=== PATIENT | male | born 1930 | race Caucasian/White ===

== ENCOUNTER 2018-08-18 21:34 | Inpatient (IN) ==
[2018-08-18 21:53] LABS: Basophils % 0.3 % (0.1-2.0); Eosinophils % 0.2 % (0.1-12.0); Hematocrit 29.8 % (42.0-52.0); Hemoglobin 9.6 g/dL (14.1-18.0); Lymphocytes # 0.5 K/mm3 (0.7-4.5); Lymphocytes % 4.8 % (10-50); Mean Corpuscular HGB Conc 32.2 g/dL (31.8-35.4); Mean Corpuscular Volume 99.5 fl (80-94); Monocytes # 0.3 K/mm3 (0.1-1.0); Monocytes % 3.2 % (1.7-9.3); Neutrophils # 8.8 K/mm3 (1.8-7.8); Neutrophils % 91.5 % (37.0-80.0); Platelet Count 125 K/mm3 (142-424); Red Blood Count 2.99 M/mm3 (4.60-6.20); White Blood Count 9.6 K/mm3 (4.8-10.8)
[2018-08-18 22:04] LABS: Albumin Level 2.3 gm/dL (3.4-5.0); Albumin/Globulin Ratio 0.6 (1.1-1.8); Anion Gap 13.3 mEq/L (5-15); Bilirubin,Total 0.6 mg/dL (0.2-1.0); Calcium 8.5 mg/dL (8.5-10.1); Globulin 3.8 gm/dl (1.3-3.2); Potassium 4.3 mmoL/L (3.5-5.1); Total Protein,Serum 6.1 gm/dL (6.4-8.2)
--- NOTE | 2018-08-18 22:30 | Emergency Department Note ---
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 The time I documented below is in addition to time spent performing reported procedures but includes the following listed in this critical care notation. Medical Decision Making - Medical Records Medical records reviewed: Yes: I reviewed the patient's medical records. - [place] Inquiry Pt receiving controlled substance: No Vital Signs: 08/18/18 21:35 08/18/18 22:52 Temperature 101.2 F H Temperature Source Oral Pulse Rate [Right Brachial] 122 H 107 H Respiratory Rate 18 20 Blood Pressure [Right Arm] 93/48 L 97/57 L Blood Pressure Mean [Right Arm] 63 70 02 Sat by Pulse Oximetry 94 L 92 L Oxygen Delivery Method Room Air - Lab Data Lab results reviewed: Yes: I reviewed the patient's lab results. Lab Results 08/18/18 21:30: WBC 9.6, RBC 2.99 L, Hgb 9.6 L, Hct 29.8 L, MCV 99.5 H, MCH 32.0 H, MCHC 32.2, RDW 15.0, Plt Count 125 L, MPV 7.0 L, Neut % (Auto) 91.5 H, Lymph % (Auto) 4.8 L, [place] % (Auto) 3.2, Eos % (Auto) 0.2, Baso % (Auto) 0.3, Neut # (Auto) 8.8 H, Lymph # (Auto) 0.5 L, [place] # (Auto) 0.3, Eos # (Auto) 0.0, Baso # (Auto) 0.0, Total Counted 100, Neutrophils % (Manual) 97 H, Lymphocytes % (Manual) 2 L, Eosinophils % (Manual) 1, Platelet Estimate Normal, RBC Morphology Not Reportable, Anisocytosis 1+, Ovalocytes 1+ 08/18/18 21:30: Sodium 135 L, Potassium 4.3, Chloride 99, Carbon Dioxide 27, Anion Gap 13.3, BUN 36 H, Creatinine 1.65 H, Estimated Creat Clear 50, Estimated GFR 40 L, Est GFR ( Amer) 48 L, Glucose 167 H, Calcium 8.5, Total Bilirubin 0.6, AST 12 L, ALT 12, Alkaline Phosphatase 93, Troponin I 0.28 H, Total Protein 6.1 L, Albumin 2.3 L, Globulin 3.8 H, Albumin/Globulin Ratio 0.6 L 08/18/18 21:50: Lactate 2.7 H 08/18/18 22:20: Influenza Type A Ag Negative, Influenza Type B Ag Negative 08/18/18 22:40: Urine Color Yellow, Urine Appearance Clear, Urine pH 6.0, Ur Specific [place] >= 1.030, Urine Protein Trace, Urine Glucose (UA) Negative, Urine Ketones Negative, Urine Blood 2+, Urine Nitrate Negative, Urine Bilirubin Negative, Urine Urobilinogen 0.2, Ur Leukocyte Esterase 1+ A, Urine RBC 10-20, U rine WBC 50-100, Urine Bacteria 1+ Result diagrams: 08/18/18 21:30 08/18/18 21:30 Orders (Tests/Meds): ED MEDICATIONS Discontinued Medications Generic Name Dose Route Start Last Admin Trade Name Freq PRN Reason Stop Dose Admin Acetaminophen 1,000 mg 08/18/18 21:45 08/18/18 21:56 Tylenol 500mg Tablet PO 08/18/18 21:46 1,000 mg ONCE ONE Administration ORDERS Category Date Time Status CT head/brain wo con Stat Cat Scan 08/18/18 21:45 Taken XR chest AP Stat Exams 08/18/18 21:42 Taken Urinalysis and Microscopic Stat Lab 08/18/18 22:40 Ordered Blood Culture Stat Micro 08/18/18 21:50 Received Urine Culture Stat Micro 08/18/18 22:40 Received - Radiology Data #1 Image(s): Chest Image Reviewed: Yes I reviewed the patient's radiology image Preliminary Findings: Abnormal (chronic changes ) - CT Data CT Scan: Head Time Received: 23:[address] Reviewed: Yes: I have viewed the radiologist's interpretation - ECG Data Tracing #1 Arrhythmias present: afib Ischemic changes: non-specific ST-T wave changes ECG compared to prior tracings: there are no significant changes - Physician Consults Physician Consulted: eric Reason -: Admission Fever HPI - General Chief Complaint: Fever Stated Complaint: fever Time Seen by Provider: 08/18/18 21:50 Mode of Arrival: EMS Source of Information: Patient, EMS, Medical Record Limitations: Physical Limitations Description of Symptoms (Recalled from ER Triage Doc. by RN): pt states he just "doesnt feel good." ems reports that [facility] states that patient hasnt been "acting like himself today." pt temp on arrival 101.2 oral. 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 - no vomiting or diarrhea - MD complaint: fever, weakness Onset (ago): hour(s) Associated symptoms: cough Treatments prior to arrival fever: none - Related Data Home Medications Medication Instructions Recorded Confirmed Allopurinol [Allopurinol 100mg 100 mg PO TID 10/11/17 08/18/18 tablet] Aspirin [Aspirin 325mg Tab] 325 mg PO DAILY 10/11/17 08/18/18 Doxepin HCl [Sinequan 25mg capsule] 25 mg PO HS 10/11/17 08/18/18 Metformin HCl 1,000 mg PO BID 10/11/17 08/18/18 Omeprazole [Omeprazole 20mg 20 mg PO BID 10/11/17 08/18/18 Capsule] Ramipril 10 mg PO BID 10/11/17 08/18/18 Budesonide [Budesonide EC] 9 mg PO DAILYP PRN 10/26/17 08/18/18 Cholecalciferol (Vitamin D3) 2,000 unit PO DAILY 10/26/17 08/18/18 [Vitamin D3] Loperamide HCl [Imodium 2 mg 2 mg PO DAILYP PRN 10/26/17 08/18/18 capsule] Vitamin B Complex [B Complex] 1 each PO DAILY 10/26/17 08/18/18 Acetaminophen/Diphenhydramine 2 tab PO HS PRN 10/27/17 08/18/18 [Tylenol Pm Ex-Strength Caplet] Apixaban [Eliquis] 2.5 mg PO BID 11/12/17 08/18/18 Sertraline HCl [Zoloft 50mg tablet] 50 mg PO DAILY 11/12/17 08/18/18 Acetaminophen 500 mg PO Q6HP PRN 11/13/17 08/18/18 Carvedilol [Carvedilol 6.25mg Tab] 12.5 mg PO BID 11/13/17 08/18/18 Furosemide [Furosemide 20mg Tab] 40 mg PO DAILY 11/13/17 08/18/18 Ibuprofen [Ibuprofen Ib] 400 mg PO Q8HP PRN 11/13/17 08/18/18 Multivitamin [One Daily] 1 tab PO DAILY 11/13/17 08/18/18 dilTIAZem HCl [Diltiazem 240mg 240 mg PO DAILY 11/13/17 08/18/18 24Hr ER Cap] levothyroxine 112 mcg tablet 150 mcg PO DAILYDM tab 06/17/18 08/18/18 Ferrous Sulfate [Ferrous Sulfate 325 mg PO BID 08/18/18 08/18/18 325mg Tablet] Magnesium Oxide [Mag-Ox 400mg Tab] 400 mg PO DAILY 08/18/18 08/18/18 Mirabegron [Myrbetriq] 50 mg PO DAILY 08/18/18 08/18/18 Tramadol HCl [Ultram 50mg 50 mg PO Q6HP PRN 08/18/18 08/18/18 tablet] Previous Rx's Medication Instructions Recorded Morphine Sulfate [MS Contin 15mg 15 mg PO HS #30 tablet.er 11/14/17 EXTENDED RELEASE tablet] Allergies Allergy/AdvReac Type Severity Reaction Status Date / Time atorvastatin [From Lipitor] Allergy Verified 08/18/18 21:42 [facility] History I have reviewed the patient's past medical history: Yes Medical History: Reports:: Cerebrovascular Accident, Diabetes Mellitus Type 2, Gastroesophageal Reflux Disease(GERD), Hyperlipidemia, Hypertension, Peripheral Vascular Disease Denies:: Atherosclerotic Heart Disease, Cancer, Diabetes Mellitus Type 1, MRSA Other Medical History: Reports: Arthritis, Cataracts, Sinus Problems, Thyroid Disease Comment: Gout. Colitis Other Surgeries: Yes: Other Amputation: No Comment: left femoral bypass 1991 - Social History Smoking Status: Former smoker Tobacco Type: cigarettes Alcohol Intake: never Occupational Status: retired Housing: [facility] Household Members: friend(s) - Psychiatric History Expresses thoughts of harming self/others: None Suicide Plan Description: No Plan Family Hx:: Asthma, Coronary Artery Disease, Hypertension ROS Obtained: Yes All systems reviewed & no additional complaints - Constitutional Constitutional: Reports fever(s), Reports weakness - Eyes Eyes: Denies change in vision - ENT Ears, Nose, Mouth, and Throat: Denies sore throat - Cardiovascular Cardiovascular: Denies chest pain - Respiratory Respiratory: Yes cough, No non-productive cough, No coughing up blood - Gastrointestinal Gastrointestingal: Denies: abdominal pain, diarrhea, vomiting - Genitourinary Male Genitourinary: Denies hematuria - Musculoskeletal Musculoskeletal: Denies joint pain, Denies joint swelling - Integumentary/Breasts Skin/Breast: Denies rash - Neurologic Neurologic: Reports as per HPI, Reports confusion, Denies headache(s), Denies seizure-like activity Physical Exam - General General appearance: alert, obese - Head Head exam: normocephalic - Eye Eye exam: Present: PERRL, EOMI. Absent: scleral icterus - ENT ENT exam: Present: mucous membranes dry - Neck Neck exam: Present: trachea midline - Respiratory Respiratory exam: Present: other (dec bs bilat ) - Cardiovascular Cardiovascular exam: Present: irregular rhythm, systolic murmur, +S4 - Abdominal Exam Abdominal exam: Present: soft - Extremities Exam Extremities exam: Absent: calf tenderness - Neurological Exam Neurological exam: Present: alert, CN II-XII intact - Psychiatric Psychiatric exam: Present: normal affect - Skin Skin exam: Absent: rash
[2018-08-18 22:38] LABS: Anisocytosis 1+; Eosinophils % 1 % (0-3); Lymphocytes % 2 % (10-50); Neutrophils % 97 % (42-76); Ovalocytes 1+; Total Cells Counted 100
[2018-08-18 22:46] LABS: Microscopic, Urine URINE MICROSCOPIC (MICROSCOPIC)
[2018-08-18 22:47] LABS: Appearance,Urine CLEAR (Clear); Bilirubin,Urine Negative (Negative); Blood, Urine 2+ (Negative); Color,Urine YELLOW (Yellow); Glucose,Urine (UA) Negative (Negative); Ketones,Urine Negative (Negative); Leukocyte Esterase,Urine 1+ (Negative); Protein,Urine TRACE (Negative); Specific Gravity, Urine >= 1.030 (1.005-1.030); Urobilinogen,Urine 0.2 EU/dl (0.2)
[2018-08-18 22:48] LABS: Bacteria,Urine 1+ /lpf; WBC,Urine 50-100 #/hpf (0-3)
[2018-08-19 06:13] LABS: Basophils % 0.2 % (0.1-2.0); Eosinophils # 0.1 K/mm3 (0.0-0.4); Eosinophils % 0.7 % (0.1-12.0); Hemoglobin 9.8 g/dL (14.1-18.0); Lymphocytes # 0.5 K/mm3 (0.7-4.5); Lymphocytes % 4.7 % (10-50); Mean Corpuscular HGB Conc 31.7 g/dL (31.8-35.4); Mean Corpuscular Hemoglobin 32.3 pg (27.0-31.2); Mean Corpuscular Volume 102.1 fl (80-94); Mean Platelet Volume 7.4 fl (7.4-10.4); Monocytes # 0.3 K/mm3 (0.1-1.0); Monocytes % 2.7 % (1.7-9.3); Neutrophils # 8.8 K/mm3 (1.8-7.8); Neutrophils % 91.6 % (37.0-80.0); Platelet Count 120 K/mm3 (142-424); Red Blood Count 3.04 M/mm3 (4.60-6.20); Red Cell Distribution Width 14.8 % (11.5-17.5); White Blood Count 9.6 K/mm3 (4.8-10.8)
[2018-08-19 06:23] LABS: Anion Gap 12.4 mEq/L (5-15); Calcium 8.4 mg/dL (8.5-10.1); Potassium 4.4 mmoL/L (3.5-5.1)
--- NOTE | 2018-08-19 07:29 | Pharmacy Consult Notes ---
[facility] Pharmacy VTE Monitoring - Patient Demographics Admission date: 08/18/18 Report Date: 08/19/18 Time: 07:29 Allergies/Adverse Reactions: Patient Allergies atorvastatin [From Lipitor] Allergy (Verified 08/18/18 21:42) Height: 1.83 m Weight: 85.332 kg Patient Problems: Current Active Problems Elevated troponin I level (Acute) Type 2 diabetes mellitus (Acute) Renal insufficiency (Acute) Chronic atrial fibrillation (Chronic) UTI (urinary tract infection) (Acute) - VTE Risk Labs: VTE Related Lab Results Hgb 9.8 g/dL (14.1-18.0) L 08/19/18 05:50 Hct 31.0 % (42.0-52.0) L 08/19/18 05:50 Plt Count 120 K/mm3 (142-424) L 08/19/18 05:50 BUN 37 mg/dL (7-18) H 08/19/18 05:50 Creatinine 1.77 mg/dL (0.70-1.30) H 08/19/18 05:50 Estimated Creat Clear 35 mL/min (50-200) 08/19/18 05:50 VTE Score: 8 VTE Risk Level: Moderate Risk - Prophylaxis VTE Prophylaxis Ordered?: Yes Types of VTE Prophylaxis: TEDS Knee High, Pharmacological Location of Applied Device: Bilateral Lower Extremeties Pharmacologic Type: Other (ELIQUIS) - VTE Diagnosis Confirmed Treatment or plan recommended: Continue Current Treatment
[2018-08-19 08:01] LABS: Eosinophils % 1 % (0-3); Lymphocytes % 5 % (10-50); Monocytes % 2 % (2-9); Neutrophils % 91 % (42-76); Total Cells Counted 100
[2018-08-19 08:03] LABS: Anisocytosis 1+; Macrocytosis 1+
--- NOTE | 2018-08-19 08:04 | Consult Report ---
History of Present Illness Consult date: 08/19/18 Requesting physician: Marcus Fernandes Consult reason: atrial fibrillation Chief complaint: A. fib with RVR, confusion, elevated troponin Additional Medical History:: 1. Diabetes mellitus, treated for greater than 15 years 2. Remote history of tobacco use for about 20 years discontinued approximately 20 years ago 3. Chronic atrial fibrillation, on Eliquis therapy A. History of CVA 4. Hypertension 5. Hypothyroidism, on replacement 6. Chronic kidney disease, stage III with creatinine 1.77 and GFR in the 30-40 range History of present illness: 87-year-old white male transferred from extended care facility for confusion with evidence of UTI. Patient found to be in atrial fibrillation with a rapid ventricular response although atrial fibrillation is known to be chronic and patient is on Eliquis therapy. Patient has received Coreg and Cardizem p.o. along with starting IV Cardizem 5 mg/h at this time with blood pressure in the 90s to 110mmHg range. Cardiology consulted for evaluation recommendations. Patient is oriented to place, date and recent events. [facility] History Medical History: Reports:: Atrial Fibrillation, Cerebrovascular Accident, Diabetes Mellitus Type 2, Gastroesophageal Reflux Disease(GERD), Hyperlipidemia, Hypertension, Peripheral Vascular Disease Denies:: Atherosclerotic Heart Disease, Cancer, Diabetes Mellitus Type 1, MRSA Other Medical History: Reports: Arthritis, Cataracts, Sinus Problems, Thyroid Disease Laterality Cases: Right: Total Knee Replacement, Bilateral: Cataract Other Surgeries: Yes: Other Amputation: No - *Social History Smoking Status: Former smoker Tobacco Type: cigarettes Alcohol Intake: never Occupational Status: retired Housing: [facility] Household Members: other - Psychiatric History Expresses thoughts of harming self/others: None Suicide Plan Description: No Plan *Family Hx:: Asthma, Coronary Artery Disease, Hypertension Meds Home Medications Medication Instructions Recorded Confirmed Type Allopurinol [Allopurinol 100mg 100 mg PO TID 10/11/17 08/19/18 History tablet] Aspirin [Aspirin 325mg Tab] 325 mg PO DAILY 10/11/17 08/19/18 History Doxepin HCl [Sinequan 25mg capsule] 25 mg PO HS 10/11/17 08/19/18 History Metformin HCl 1,000 mg PO BID 10/11/17 08/19/18 History Omeprazole [Omeprazole 20mg 20 mg PO BID 10/11/17 08/19/18 History Capsule] Ramipril 10 mg PO BID 10/11/17 08/19/18 History Budesonide [Budesonide EC] 9 mg PO DAILYP PRN 10/26/17 08/19/18 History Cholecalciferol (Vitamin D3) 2,000 unit PO DAILY 10/26/17 08/19/18 History [Vitamin D3] Loperamide HCl [Imodium 2 mg 2 mg PO Q4HP PRN 10/26/17 08/19/18 History capsule] Vitamin B Complex [B Complex] 1 each PO DAILY 10/26/17 08/19/18 History Acetaminophen/Diphenhydramine 2 tab PO HS PRN 10/27/17 08/19/18 History [Tylenol Pm Ex-Strength Caplet] Apixaban [Eliquis] 2.5 mg PO BID 11/12/17 08/19/18 History Sertraline HCl [Zoloft 50mg tablet] 50 mg PO DAILY 11/12/17 08/19/18 History Acetaminophen 500 mg PO Q6HP PRN 11/13/17 08/19/18 History Carvedilol [Carvedilol 6.25mg Tab] 12.5 mg PO BID 11/13/17 08/19/18 History Ibuprofen [Ibuprofen Ib] 400 mg PO Q8HP PRN 11/13/17 08/19/18 History Multivitamin [One Daily] 1 tab PO DAILY 11/13/17 08/19/18 History dilTIAZem HCl [Diltiazem 240mg 240 mg PO DAILY 11/13/17 08/19/18 History 24Hr ER Cap] Ferrous Sulfate [Ferrous Sulfate 325 mg PO BID 08/18/18 08/19/18 History 325mg Tablet] Magnesium Oxide [Mag-Ox 400mg Tab] 400 mg PO DAILY 08/18/18 08/19/18 History Mirabegron [Myrbetriq] 50 mg PO DAILY 08/18/18 08/19/18 History Tramadol HCl [Ultram 50mg 50 mg PO Q6HP PRN 08/18/18 08/19/18 History tablet] Ascorbic Acid 500 mg PO BID 08/19/18 08/19/18 History Chlorpheniramine/Dextromethorp 5 ml PO Q4HP PRN 08/19/18 08/19/18 History [Robitussin Long-Acting Liq] Levothyroxine Sodium 150 mcg PO DAILY 08/19/18 08/19/18 History [Levothyroxine 150mcg (0.15mg) Tab] Mag Carb/Aluminum Hydrox/Algin 15 ml PO Q4HP PRN 08/19/18 08/19/18 History [Gaviscon Liquid] Nystatin [Nystatin Topical Powder 0 gm TP BID 08/19/18 08/19/18 History 30GM] Ondansetron HCl [Ondansetron 4mg 4 mg PO Q6 PRN 08/19/18 08/19/18 History Tablet] Allergies Allergy/AdvReac Type Severity Reaction Status Date / Time atorvastatin [From Lipitor] Allergy Verified 08/18/18 21:42 Review of Systems - *Cardiovascular Reports irregular heart rhythm, Denies chest pain - *Respiratory Reports cough, Reports shortness of breath, Reports shortness of breath with activity - *Gastrointestinal Denies abdominal pain - *Genitourinary Denies blood in urine - *Neurologic Reports confusion, Reports weakness, Denies headache(s), Denies seizure-like activity Exam Vital signs and Labs for Last 24 Hours: Temp Pulse Resp BP Pulse Ox 97.6 F 106 H 18 101/51 L 95 08/19/18 04:00 08/19/18 04:00 08/19/18 04:00 08/19/18 04:00 08/19/18 04:00 Laboratory Results - last 24 hr 08/18/18 21:30: WBC 9.6, RBC 2.99 L, Hgb 9.6 L, Hct 29.8 L, MCV 99.5 H, MCH 32.0 H, MCHC 32.2, RDW 15.0, Plt Count 125 L, MPV 7.0 L, Neut % (Auto) 91.5 H, Lymph % (Auto) 4.8 L, [place] % (Auto) 3.2, Eos % (Auto) 0.2, Baso % (Auto) 0.3, Neut # (Auto) 8.8 H, Lymph # (Auto) 0.5 L, [place] # (Auto) 0.3, Eos # (Auto) 0.0, Baso # (Auto) 0.0, Total Counted 100, Neutrophils % (Manual) 97 H, Lymphocytes % (Manual) 2 L, Eosinophils % (Manual) 1, Platelet Estimate Normal, RBC Morphology Not Reportable, Anisocytosis 1+, Ovalocytes 1+ 08/18/18 21:30: Sodium 135 L, Potassium 4.3, Chloride 99, Carbon Dioxide 27, Anion Gap 13.3, BUN 36 H, Creatinine 1.65 H, Estimated Creat Clear 50, Estimated GFR 40 L, Est GFR ( Amer) 48 L, Glucose 167 H, Calcium 8.5, Total Bilirubin 0.6, AST 12 L, ALT 12, Alkaline Phosphatase 93, Troponin I 0.28 H, Total Protein 6.1 L, Albumin 2.3 L, Globulin 3.8 H, Albumin/Globulin Ratio 0.6 L 08/18/18 21:50: Lactate 2.7 H 08/18/18 22:20: Influenza Type A Ag Negative, Influenza Type B Ag Negative 08/18/18 22:40: Urine Color Yellow, Urine Appearance Clear, Urine pH 6.0, Ur Specific [place] >= 1.030, Urine Protein Trace, Urine Glucose (UA) Negative, Urine Ketones Negative, Urine Blood 2+, Urine Nitrate Negative, Urine Bilirubin Negative, Urine Urobilinogen 0.2, Ur Leukocyte Esterase 1+ A, Urine RBC 10-20, Urine WBC 50-100, Urine Bacteria 1+ 08/19/18 02:20: Troponin I 0.32 H 08/19/18 02:20: Lactate 1.9 08/19/18 05:50: Troponin I 0.34 H 08/19/18 05:50: WBC 9.6, RBC 3.04 L, Hgb 9.8 L, Hct 31.0 L, MCV 102.1 H, MCH 32.3 H, MCHC 31.7 L, RDW 14.8, Plt Count 120 L, MPV 7.4, Neut % (Auto) 91.6 H, Lymph % (Auto) 4.7 L, [place] % (Auto) 2.7, Eos % (Auto) 0.7, Baso % (Auto) 0.2, Neut # (Auto) 8.8 H, Lymph # (Auto) 0.5 L, [place] # (Auto) 0.3, Eos # (Auto) 0.1, Baso # (Auto) 0.0 08/19/18 05:50: Sodium 138, Potassium 4.4, Chloride 103, Carbon Dioxide 27, Anion Gap 12.4, BUN 37 H, Creatinine 1.77 H, Estimated Creat Clear 35, Estimated GFR 36 L, Est GFR ( Amer) 44 L, Glucose 127 H D, Calcium 8.4 L, Magnesium 1.5 08/19/18 06:09: POC Glucose 134 H I & O for Last 24 hours: Intake & Output 08/16/18 08/17/18 08/18/18 08/19/18 11:59 11:59 11:59 11:59 Weight 188 lb 2 oz - *Routine Neck Exam Present: supple. Absent: JVD, carotid bruit - *Routine Respiratory Exam Present: decreased breath sounds, rhonchi, wheezes. Absent: accessory muscle use, rales - *Routine Cardiovascular Exam Present: tachycardia, irregularly irregular. Absent: murmur, gallop, rubs - *Routine Abdominal Exam Present: soft. Absent: tenderness, distended, guarding - *Routine Extremities Exam Absent: edema, calf tenderness - *Routine Neurological Exam Present: alert, oriented X3, moving all extremities Assessment and Plan (1) Elevated troponin I level Current visit: Yes Status: Acute Category: Medical Code(s): R74.8 - Abnormal levels of other serum enzymes (2) Renal insufficiency Current visit: Yes Status: Acute Category: Medical Code(s): N28.9 - Disorder of kidney and ureter, unspecified (3) Type 2 diabetes mellitus Current visit: Yes Status: Acute Qualifiers: Diabetes mellitus jail insulin use: without jail use Diabetes mellitus complication status: with unspecified complications Qualified Code(s): E11.8 - Type 2 diabetes mellitus with unspecified complications Category: Medical Code(s): E11.9 - Type 2 diabetes mellitus without complications (4) UTI (urinary tract infection) Current visit: Yes Status: Acute Qualifiers: Urinary tract infection type: site unspecified Hematuria presence: without hematuria Qualified Code(s): N39.0 - Urinary tract infection, site not specified Category: Medical Code(s): N39.0 - Urinary tract infection, site not specified (5) Atrial fibrillation Current visit: No Status: Acute Qualifiers: Atrial fibrillation type: persistent Qualified Code(s): I48.1 - Persistent atrial fibrillation Category: Medical Code(s): I48.91 - Unspecified atrial fibrillation (6) History of CVA (cerebrovascular accident) Current visit: No Status: Acute Category: Medical Code(s): Z86.73 - Personal history of transient ischemic attack (TIA), and cerebral infarction without residual deficits (7) Hypothyroidism Current visit: No Status: Chronic Qualifiers: Hypothyroidism type: unspecified Qualified Code(s): E03.9 - Hypothyroidism, unspecified Category: Medical Code(s): E03.9 - Hypothyroidism, unspecified - Assessment and plan all Dx Assessment and Plan for all problems:: 1. Will change Coreg to bisoprolol for better rate control. Increase as blood pressure tolerates. 2. Consider switching Cardizem to verapamil if needed for additional rate control. Continue holding ramipril to allow use of more rate control medications. 3. Will obtain an echocardiogram to evaluate left ventricular size and function in setting of elevated troponins. Elevated troponin is most likely secondary to rapid heart rate and demand ischemia. We will hold off on additional testing at this time and treat conservatively with medications. 4. Continue Eliquis therapy. 5. We will obtain a chest x-ray due to rhonchi and wheezing with history of IV fluids given per sepsis protocol 6. We will give 1 dose of IV digoxin 0.25 mg
--- NOTE | 2018-08-19 08:20 | History & Physical Report ---
*Admission Date: 08/18/18 <Brittany Alan 08/19/18 08:29> *Chief complaint: Weakness, confusion <Brittany Alan 08/19/18 08:29> *History of present illness: Mr. Cheema is an 87yo male who was transferred from [place] with c/o confusion. He was apparently lethargic and not co mmunicating well. He was found to have a UTI in the ER and was admitted for IV abx and IVF's as he triggered the sepsis protocol. He was also found to be in atrial fibrillation with a rapid ventricular response with slightly elevated enzymes. Atrial fibrillation is chronic and he is on Eliquis therapy. He received Coreg and Cardizem p.o. along with starting IV Cardizem 5 mg/h. Cardiology was consulted for evaluation. He is feeling much better today after receiving abx and IVF's. He does state he has been urinating more than normal and has had a cough. <Brittany Alan 08/19/18 08:29> [facility] History Medical History: Reports:: Atrial Fibrillation, Cerebrovascular Accident, Diabetes Mellitus Type 2, Gastroesophageal Reflux Disease(GERD), Hyperlipidemia, Hypertension, Peripheral Vascular Disease Denies:: Atherosclerotic Heart Disease, Cancer, Diabetes Mellitus Type 1, MRSA <Brittany Alan 08/19/18 08:29> Other Medical History: Reports: Arthritis, Cataracts, Sinus Problems, Thyroid Disease <Brittany Alan 08/19/18 08:29> Laterality Cases: Right: Total Knee Replacement, Bilateral: Cataract <Brittany Alan 08/19/18 08:29> Other Surgeries: Yes: Other (Left femoral bypass, Right eye skin cancer, Rt eye implant) <Brittany Alan 08/19/18 08:29> Amputation: No <Brittany Alan 08/19/18 08:29> - *Social History Smoking Status: Former smoker <Brittany Alan 08/19/18 08:29> Tobacco Type: cigarettes <Brittany Alan 08/19/18 08:29> Alcohol Intake: never <Brittany Alan 08/19/18 08:29> Occupational Status: retired <Brittany Alan 08/19/18 08:29> Housing: alf <Brittany Alan 08/19/18 08:29> Household Members: other <RameshBrittany maravilla 08/19/18 08:29> - Psychiatric History Expresses thoughts of harming self/others: None <Brittany Alan 08/19/18 08:29> Suicide Plan Description: No Plan <Brittany Alan 08/19/18 08:29> *Family Hx:: Asthma, Coronary Artery Disease, Hypertension <Brittany Alan 08/19/18 08:29> Review of Systems - Constitutional Reports malaise, Reports weakness, Denies body ache(s), Denies chills <[facility] 08/19/18 08:29> - Eyes Denies blurry vision, Denies double vision [facility] - ENT Denies nasal congestion, Denies sore throat, Denies dizziness <[facility] 08/19/18 08:29> - *Cardiovascular Denies chest pain, Denies shortness of breath <[facility] 08/19/18 08:29> - *Respiratory Reports cough, Denies shortness of breath <[facility] 08/19/18 08:29> - *Gastrointestinal Denies abdominal pain, Denies loose stools, Denies nausea, Denies vomiting <[facility] 08/19/18 08:29> - *Genitourinary Reports urinary frequency, Denies difficulty urinating, Denies painful urination <[facility] 08/19/18 08:29> - *Musculoskeletal Denies joint pain, Denies body aches <[facility] 08/19/18 08:29> - *Neurologic Reports confusion, Reports weakness, Denies headache(s), Denies seizure-like activity, Denies dizziness <[facility] 08/19/18 08:29> Meds Home Medications Medication Instructions Recorded Confirmed Type Allopurinol [Allopurinol 100mg 100 mg PO TID 10/11/17 08/19/18 History tablet] Aspirin [Aspirin 325mg Tab] 325 mg PO DAILY 10/11/17 08/19/18 History Doxepin HCl [Sinequan 25mg capsule] 25 mg PO HS 10/11/17 08/19/18 History Omeprazole [Omeprazole 20mg 20 mg PO BID 10/11/17 08/19/18 History Capsule] Budesonide [Budesonide EC] 9 mg PO DAILYP PRN 10/26/17 08/19/18 History Cholecalciferol (Vitamin D3) 2,000 unit PO DAILY 10/26/17 08/19/18 History [Vitamin D3] Loperamide HCl [Imodium 2 mg 2 mg PO Q4HP PRN 10/26/17 08/19/18 History capsule] Vitamin B Complex [B Complex] 1 each PO DAILY 10/26/17 08/19/18 History Acetaminophen/Diphenhydramine 2 tab PO HS PRN 10/27/17 08/19/18 History [Tylenol Pm Ex-Strength Caplet] Apixaban [Eliquis] 2.5 mg PO BID 11/12/17 08/19/18 History Sertraline HCl [Zoloft 50mg tablet] 50 mg PO DAILY 11/12/17 08/19/18 History Acetaminophen 500 mg PO Q6HP PRN 11/13/17 08/19/18 History Carvedilol [Carvedilol 6.25mg Tab] 12.5 mg PO BID 11/13/17 08/19/18 History Ibuprofen [Ibuprofen Ib] 400 mg PO Q8HP PRN 11/13/17 08/19/18 History Multivitamin [One Daily] 1 tab PO DAILY 11/13/17 08/19/18 History dilTIAZem HCl [Diltiazem 240mg 240 mg PO DAILY 11/13/17 08/19/18 History 24Hr ER Cap] Ferrous Sulfate [Ferrous Sulfate 325 mg PO BID 08/18/18 08/19/18 History 325mg Tablet] Magnesium Oxide [Mag-Ox 400mg Tab] 400 mg PO DAILY 08/18/18 08/19/18 History Mirabegron [Myrbetriq] 50 mg PO DAILY 08/18/18 08/19/18 History Tramadol HCl [Ultram 50mg 50 - 100 mg PO Q6HP PRN 08/18/18 08/19/18 History tablet] Ascorbic Acid 500 mg PO BID 08/19/18 08/19/18 History Chlorpheniramine/Dextromethorp 5 ml PO Q4HP PRN 08/19/18 08/19/18 History [Robitussin Long-Acting Liq] Furosemide [Furosemide 20mg Tab] 20 mg PO 1600 08/19/18 08/19/18 History Levothyroxine Sodium 150 mcg PO DAILY 08/19/18 08/19/18 History [Levothyroxine 150mcg (0.15mg) Tab] Mag Carb/Aluminum Hydrox/Algin 15 ml PO Q4HP PRN 08/19/18 08/19/18 History [Gaviscon Liquid] Metformin HCl 1,000 mg PO BID 08/19/18 08/19/18 History Nystatin [Nystatin Topical Powder 0 gm TP BID 08/19/18 08/19/18 History 30GM] Ondansetron HCl [Ondansetron 4mg 4 mg PO Q6HP PRN 08/19/18 08/19/18 History Tablet] Ramipril 10 mg PO BID 08/19/18 08/19/18 History <Thomas Garcia - 08/19/18 14:54> Allergies Allergy/AdvReac Type Severity Reaction Status Date / Time atorvastatin [From Lipitor] Allergy Verified 08/18/18 21:42 <Thomas Garcia - 08/19/18 14:54> Exam Vital signs and Labs for Last 24 Hours: Temp Pulse Resp BP Pulse Ox 97.6 F 75 20 105/59 L 96 08/19/18 04:00 08/19/18 12:00 08/19/18 12:00 08/19/18 12:00 08/19/18 12:00 Laboratory Results - last 24 hr 08/18/18 21:30: WBC 9.6, RBC 2.99 L, Hgb 9.6 L, Hct 29.8 L, MCV 99.5 H, MCH 32.0 H, MCHC 32.2, RDW 15.0, Plt Count 125 L, MPV 7.0 L, Neut % (Auto) 91.5 H, Lymph % (Auto) 4.8 L, [place] % (Auto) 3.2, Eos % (Auto) 0.2, Baso % (Auto) 0.3, Neut # (Auto) 8.8 H, Lymph # (Auto) 0.5 L, [place] # (Auto) 0.3, Eos # (Auto) 0.0, Baso # (Auto) 0.0, Total Counted 100, Neutrophils % (Manual) 97 H, Lymphocytes % (Manual) 2 L, Eosinophils % (Manual) 1, Platelet Estimate Normal, RBC Morphology Not Reportable, Anisocytosis 1+, Ovalocytes 1+ 08/18/18 21:30: Sodium 135 L, Potassium 4.3, Chloride 99, Carbon Dioxide 27, Anion Gap 13.3, BUN 36 H, Creatinine 1.65 H, Estimated Creat Clear 50, Estimated GFR 40 L, Est GFR ( Amer) 48 L, Glucose 167 H, Calcium 8.5, Total Bilirubin 0.6, AST 12 L, ALT 12, Alkaline Phosphatase 93, Troponin I 0.28 H, Total Protein 6.1 L, Albumin 2.3 L, Globulin 3.8 H, Albumin/Globulin Ratio 0.6 L 08/18/18 21:50: Lactate 2.7 H 08/18/18 22:20: Influenza Type A Ag Negative, Influenza Type B Ag Negative 08/18/18 22:40: Urine Color Yellow, Urine Appearance Clear, Urine pH 6.0, Ur Specific [place] >= 1.030, Urine Protein Trace, Urine Glucose (UA) Negative, Urine Ketones Negative, Urine Blood 2+, Urine Nitrate Negative, Urine Bilirubin Negative, Urine Urobilinogen 0.2, Ur Leukocyte Esterase 1+ A, Urine RBC 10-20, Urine WBC 50-100, Urine Bacteria 1+ 08/19/18 02:20: Troponin I 0.32 H 08/19/18 02:20: Lactate 1.9 08/19/18 02:20: TSH 5.47 H, Free T4 Index 2.0 L, Thyroxine (T4) 5.2, T3 Uptake 39 08/19/18 05:50: Troponin I 0.34 H 08/19/18 05:50: WBC 9.6, RBC 3.04 L, Hgb 9.8 L, Hct 31.0 L, MCV 102.1 H, MCH 32.3 H, MCHC 31.7 L, RDW 14.8, Plt Count 120 L, MPV 7.4, Neut % (Auto) 91.6 H, Lymph % (Auto) 4.7 L, [place] % (Auto) 2.7, Eos % (Auto) 0.7, Baso % (Auto) 0.2, Neut # (Auto) 8.8 H, Lymph # (Auto) 0.5 L, [place] # (Auto) 0.3, Eos # (Auto) 0.1, Baso # (Auto) 0.0, Total Counted 100, Neutrophils % (Manual) 91 H, Band Neutr ophils % 1.0, Lymphocytes % (Manual) 5 L, Monocytes % (Manual) 2, Eosinophils % (Manual) 1, Platelet Estimate Normal, Anisocytosis 1+, Macrocytosis 1+ 08/19/18 05:50: Sodium 138, Potassium 4.4, Chloride 103, Carbon Dioxide 27, Anion Gap 12.4, BUN 37 H, Creatinine 1.77 H, Estimated Creat Clear 35, Estimated GFR 36 L, Est GFR ( Amer) 44 L, Glucose 127 H D, Calcium 8.4 L, Magnesium 1.5 08/19/18 06:09: POC Glucose 134 H 08/19/18 11:17: POC Glucose 139 H <Thomas Garcia - 08/19/18 14:54> Temp Pulse Resp BP Pulse Ox 97.6 F 125 H 18 101/51 L 95 08/19/18 04:00 08/19/18 08:06 08/19/18 04:00 08/19/18 04:00 08/19/18 04:00 Laboratory Results - last 24 hr 08/18/18 21:30: WBC 9.6, RBC 2.99 L, Hgb 9.6 L, Hct 29.8 L, MCV 99.5 H, MCH 32.0 H, MCHC 32.2, RDW 15.0, Plt Count 125 L, MPV 7.0 L, Neut % (Auto) 91.5 H, Lymph % (Auto) 4.8 L, [place] % (Auto) 3.2, Eos % (Auto) 0.2, Baso % (Auto) 0.3, Neut # (Auto) 8.8 H, Lymph # (Auto) 0.5 L, [place] # (Auto) 0.3, Eos # (Auto) 0.0, Baso # (Auto) 0.0, Total Counted 100, Neutrophils % (Manual) 97 H, Lymphocytes % (Manual) 2 L, Eosinophils % (Manual) 1, Platelet Estimate Normal, RBC Morphology Not Reportable, Anisocytosis 1+, Ovalocytes 1+ 08/18/18 21:30: Sodium 135 L, Potassium 4.3, Chloride 99, Carbon Dioxide 27, Anion Gap 13.3, BUN 36 H, Creatinine 1.65 H, Estimated Creat Clear 50, Estimated GFR 40 L, Est GFR ( Amer) 48 L, Glucose 167 H, Calcium 8.5, Total Bilirubin 0.6, AST 12 L, ALT 12, Alkaline Phosphatase 93, Troponin I 0.28 H, Total Protein 6.1 L, Albumin 2.3 L, Globulin 3.8 H, Albumin/Globulin Ratio 0.6 L 08/18/18 21:50: Lactate 2.7 H 08/18/18 22:20: Influenza Type A Ag Negative, Influenza Type B Ag Negative 08/18/18 22:40: Urine Color Yellow, Urine Appearance Clear, Urine pH 6.0, Ur Specific [place] >= 1.030, Urine Protein Trace, Urine Glucose (UA) Negative, Urine Ketones Negative, Urine Blood 2+, Urine Nitrate Negative, Urine Bilirubin Negative, Urine Urobilinogen 0.2, Ur Leukocyte Esterase 1+ A, Urine RBC 10-20, Urine WBC 50-100, Urine Bacteria 1+ 08/19/18 02:20: Troponin I 0.32 H 08/19/18 02:20: Lactate 1.9 08/19/18 05:50: Troponin I 0.34 H 08/19/18 05:50: WBC 9.6, RBC 3.04 L, Hgb 9.8 L, Hct 31.0 L, MCV 102.1 H, MCH 32.3 H, MCHC 31.7 L, RDW 14.8, Plt Count 120 L, MPV 7.4, Neut % (Auto) 91.6 H, Lymph % (Auto) 4.7 L, [place] % (Auto) 2.7, Eos % (Auto) 0.7, Baso % (Auto) 0.2, Neut # (Auto) 8.8 H, Lymph # (Auto) 0.5 L, [place] # (Auto) 0.3, Eos # (Auto) 0.1, Baso # (Auto) 0.0, Total Counted 100, Neutrophils % (Manual) 91 H, Band Neutrophils % 1.0, Lymphocytes % (Manual) 5 L, Monocytes % (Manual) 2, Eosinophils % (Manual) 1, Platelet Estimate Normal, Anisocytosis 1+, Macrocytosis 1+ 08/19/18 05:50: Sodium 138, Potassium 4.4, Chloride 103, Carbon Dioxide 27, Anion Gap 12.4, BUN 37 H, Creatinine 1.77 H, Estimated Creat Clear 35, Estimated GFR 36 L, Est GFR ( Amer) 44 L, Glucose 127 H D, Calcium 8.4 L, Magnesium 1.5 08/19/18 06:09: POC Glucose 134 H <Brittany Alan - 08/19/18 08:29> I & O for Last 24 hours: Intake & Output 08/17/18 08/18/18 08/19/18 08/20/18 11:59 11:59 11:59 11:59 Intake Total 4111 / 4111 480 / 480 Balance 4111 / 4111 480 / 480 Weight 188 lb 2 oz <Thomas Garcia - 08/19/18 14:54> Intake & Output 08/16/18 08/17/18 08/18/18 08/19/18 11:59 11:59 11:59 11:59 Weight 188 lb 2 oz <DayannaBrittany - 08/19/18 08:29> - Constitutional no acute distress <Brittany Alan 08/19/18 08:29> - *Routine HEENT Exam Head: Present: normocephalic <DayannaBrittany - 08/19/18 08:29> Eye: Present: EOMI, PERRL <Brittany Alan 08/19/18 08:29> ENT: Present: mucous membranes dry <Brittany Alan 08/19/18 08:29> - *Routine Neck Exam Present: supple. Absent: lymphadenopathy <DayannaBrittany 08/19/18 08:29> - *Routine Respiratory Exam Present: rhonchi (bilaterally), wheezes <Brittany Alan 08/19/18 08:29> - *Routine Cardiovascular Exam Present: RRR, irregularly irregular <Brittany Alan 08/19/18 08:29> - *Routine Abdominal Exam Present: soft, normoactive bowel sounds. Absent: tenderness <Brittany Alan 08/19/18 08:29> - *Routine Extremities Exam Absent: cyanosis, clubbing, edema <Brittany Alan - 08/19/18 08:29> - *Routine Skin Exam Present: warm. Absent: rash <Brittany Alan - 08/19/18 08:29> - *Routine Neurological Exam Present: alert, oriented X3 <Brittany Alan 08/19/18 08:29> H&P: Result - Impressions CXR - Chronic changes with cardiomegaly with atelectasis or infiltrate in both mid lungs and right lower lobe with chronic changes in the left lower lobe Head CT 1. No acute intracranial findings. 2. Atrophy with chronic ischemic change. 3. Probable small area of calcification in the right parietal lobe. Recommend follow-up to confirm <Brittany Alan - 08/19/18 08:29> Assessment and Plan (1) Sepsis Current visit: Yes Status: Acute Category: Medical Code(s): A41.9 - Sepsis, unspecified organism (2) UTI (urinary tract infection) Current visit: Yes Status: Acute Qualifiers: Urinary tract infection type: site unspecified Hematuria presence: without hematuria Qualified Code(s): N39.0 - Urinary tract infection, site not specified Category: Medical Code(s): N39.0 - Urinary tract infection, site not specified (3) Elevated troponin I level Current visit: Yes Status: Acute Category: Medical Code(s): R74.8 - Abnormal levels of other serum enzymes (4) Renal insufficiency Current visit: Yes Status: Acute Category: Medical Code(s): N28.9 - Disorder of kidney and ureter, unspecified (5) Type 2 diabetes mellitus Current visit: Yes Status: Acute Qualifiers: Diabetes mellitus care home insulin use: without care home use Diabetes mellitus complication status: with unspecified complications Qualified Code(s): E11.8 - Type 2 diabetes mellitus with unspecified complications Category: Medical Code(s): E11.9 - Type 2 diabetes mellitus without complications (6) Atrial fibrillation Current visit: No Status: Acute Qualifiers: Atrial fibrillation type: persistent Qualified Code(s): I48.1 - Persistent atrial fibrillation Category: Medical Code(s): I48.91 - Unspecified atrial fibrillation (7) History of CVA (cerebrovascular accident) Current visit: No Status: Acute Category: Medical Code(s): Z86.73 - Personal history of transient ischemic attack (TIA), and cerebral infarction without residual deficits (8) Hypothyroidism Current visit: No Status: Chronic Qualifiers: Hypothyroidism type: unspecified Qualified Code(s): E03.9 - Hypothyroidism, unspecified Category: Medical Code(s): E03.9 - Hypothyroidism, unspecified (9) Chronic atrial fibrillation Current visit: Yes Status: Chronic Category: Medical Code(s): I48.2 - Chronic atrial fibrillation (10) Hyperlipidemia Current visit: No Status: Acute Category: Medical Code(s): E78.5 - Hyperlipidemia, unspecified (11) Hypertension Current visit: No Status: Acute Category: Medical Code(s): I10 - Essential (primary) hypertension <Brittany Alan - 08/19/18 08:38> (1) Sepsis Current visit: Yes Status: Acute Category: Medical Code(s): A41.9 - Sepsis, unspecified organism (2) UTI (urinary tract infection) Current visit: Yes Status: Acute Qualifiers: Urinary tract infection type: site unspecified Hematuria presence: without hematuria Qualified Code(s): N39.0 - Urinary tract infection, site not specified Category: Medical Code(s): N39.0 - Urinary tract infection, site not specified (3) Atrial fibrillation with rapid ventricular response Current visit: Yes Status: Acute Category: Medical Code(s): I48.91 - Unspecified atrial fibrillation (4) Elevated troponin I level Current visit: Yes Status: Acute Category: Medical Code(s): R74.8 - Abnormal levels of other serum enzymes (5) Renal insufficiency Current visit: Yes Status: Acute Category: Medical Code(s): N28.9 - Disorder of kidney and ureter, unspecified (6) Type 2 diabetes mellitus Current visit: Yes Status: Acute Qualifiers: Diabetes mellitus 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 treater helper insulin use: without termite treater helper use Diabetes mellitus complication status: with unspecified complications Qualified Code(s): E11.8 - Type 2 diabetes mellitus with unspecified complications Category: Medical Code(s): E11.9 - Type 2 diabetes mellitus without complications (7) History of CVA (cerebrovascular accident) Current visit: No Status: Acute Category: Medical Code(s): Z86.73 - Personal history of transient ischemic attack (TIA), and cerebral infarction without residual deficits (8) Hypothyroidism Current visit: No Status: Chronic Qualifiers: Hypothyroidism type: unspecified Qualified Code(s): E03.9 - Hypothyroidism, unspecified Category: Medical Code(s): E03.9 - Hypothyroidism, unspecified (9) Chronic atrial fibrillation Current visit: Yes Status: Chronic Category: Medical Code(s): I48.2 - Chronic atrial fibrillation (10) Hyperlipidemia Current visit: No Status: Acute Category: Medical Code(s): E78.5 - Hyperlipidemia, unspecified (11) Hypertension Current visit: No Status: Acute Category: Medical Code(s): I10 - Essential (primary) hypertension <Thomas Garcia - 08/19/18 14:54> - Assessment and plan all Dx Assessment and Plan for all problems:: Patient seen and examined. Cardiology consult noted. Family reports his mental status is much clearer this morning and he appears to be at baseline by my assessment. Will continue current antibiotics pending cultures. COncur with cardiology recommendations <Thomas Garcia - 08/19/18 14:54> Cardiology has seen the patient and they recommend changing Coreg to bisoprolol for better rate control, consider switching Cardizem to verapamil if needed for additional rate control, continue holding ramipril to allow use of more rate control medications, get an echocardiogram to evaluate left ventricular size and function in setting of elevated troponins, and continue Eliquis therapy. They also gave him 1 dose of IV digoxin 0.25mg. A repeat CXR was ordered as well d/t rhonchi and wheezing after patient was given IVF boluses. Will await urine culture results and discuss further care with Dr. Garcia. <Brittany Alan - 08/19/18 08:39>
[2018-08-19 08:34] LABS: T4 (Thyroxine) 5.2 ug/dl (4.7-13.3); Thyroid Stimulating Hormone 5.47 uIU/ml (0.358-3.740)
--- NOTE | 2018-08-20 08:09 | Progress Note ---
<Brittany Alan - Last Filed: 08/20/18 08:05> Internal Medicine - PN: Subj *Date: 08/20/18 *Time: 08:05 Interval history: Patient states he feels well this morning. He denies any pain. He states he slept well and ate some breakfast this morning. He does seem to be short of breath and the nurse states she has noticed this as well. She states he was so short of breath this morning it was difficult for him to eat. Exam Vital signs and Labs for Last 24 Hours: Temp Pulse Resp BP Pulse Ox 99.5 F 106 H 28 H 135/84 93 L 08/20/18 06:00 08/20/18 07:00 08/20/18 06:00 08/20/18 07:00 08/20/18 07:00 Laboratory Results - last 24 hr 08/19/18 02:20: TSH 5.47 H, Free T4 Index 2.0 L, Thyroxine (T4) 5.2, T3 Uptake 39 08/19/18 11:17: POC Glucose 139 H 08/19/18 17:18: POC Glucose 101 08/19/18 20:56: POC Glucose 158 H 08/20/18 05:47: POC Glucose 105 I & O for Last 24 hours: Intake & Output 08/17/18 08/18/18 08/19/18 08/20/18 11:59 11:59 11:59 11:59 Intake Total 4111 / 4111 2949 / 2949 Balance 4111 / 4111 2949 / 2949 Weight 188 lb 2 oz 201 lb 9 oz Microbiology Reports for the Last 24 Hours: Microbiology 08/18/18 22:40 Urine,Catheterized Urine Culture - Preliminary 08/18/18 21:50 Blood Blood Culture - Preliminary Radiology Reports for the Last 24 Hours: CXR - Small pleural effusion the left with blunting left CP angle. Scant fluid outlines the minor fissure on the right is similar to yesterday. Mild prominence of central markings throughout. Question of mild vascular congestion. Mild cardiomegaly. Mild basilar atelectasis right greater than left - Constitutional no acute distress (dyspneic) - *Routine Respiratory Exam Present: rales (bilateral bases), wheezes - *Routine Cardiovascular Exam Present: irregularly irregular - *Routine Abdominal Exam Present: soft, normoactive bowel sounds. Absent: tenderness - *Routine Extremities Exam Absent: cyanosis, clubbing, edema - *Routine Neurological Exam Present: alert, oriented X3 Assessment and Plan (1) Sepsis Current visit: Yes Status: Acute Category: Medical Code(s): A41.9 - Sepsis, unspecified organism (2) UTI (urinary tract infection) Current visit: Yes Status: Acute Qualifiers: Urinary tract infection type: site unspecified Hematuria presence: without hematuria Qualified Code(s): N39.0 - Urinary tract infection, site not specified Category: Medical Code(s): N39.0 - Urinary tract infection, site not specified (3) Atrial fibrillation with rapid ventricular response Current visit: Yes Status: Acute Category: Medical Code(s): I48.91 - Unspecified atrial fibrillation (4) Elevated troponin I level Current visit: Yes Status: Acute Category: Medical Code(s): R74.8 - Abnormal levels of other serum enzymes (5) Renal insufficiency Current visit: Yes Status: Acute Category: Medical Code(s): N28.9 - Disorder of kidney and ureter, unspecified (6) Type 2 diabetes mellitus Current visit: Yes Status: Acute Qualifiers: Diabetes mellitus [facility] insulin use: without long term care pharmacist use Diabetes mellitus complication status: with unspecified complications Qualified Code(s): E11.8 - Type 2 diabetes mellitus with unspecified complications Category: Medical Code(s): E11.9 - Type 2 diabetes mellitus without complications (7) History of CVA (cerebrovascular accident) Current visit: No Status: Acute Category: Medical Code(s): Z86.73 - Personal history of transient ischemic attack (TIA), and cerebral infarction without residual deficits (8) Hypothyroidism Current visit: No Status: Chronic Qualifiers: Hypothyroidism type: unspecified Qualified Code(s): E03.9 - Hypothyroidism, unspecified Category: Medical Code(s): E03.9 - Hypothyroidism, unspecified (9) Chronic atrial fibrillation Current visit: Yes Status: Chronic Category: Medical Code(s): I48.2 - Chronic atrial fibrillation (10) Hyperlipidemia Current visit: No Status: Acute Category: Medical Code(s): E78.5 - Hyperlipidemia, unspecified (11) Hypertension Current visit: No Status: Acute Category: Medical Code(s): I10 - Essential (primary) hypertension - Assessment and plan all Dx Assessment and Plan for all problems:: Chest x-ray from yesterday shows some pulmonary vascular congestion. Patient is more short of breath today. Will give him some Lasix. Will discuss further care with Dr. Garcia. <Thomas Garcia - Last Filed: 08/20/18 23:38> Exam Vital signs and Labs for Last 24 Hours: Temp Pulse Resp BP Pulse Ox 98.5 F 100 H 24 127/80 95 08/20/18 20:00 08/20/18 20:00 08/20/18 20:30 08/20/18 20:00 08/20/18 20:30 Laboratory Results - last 24 hr 08/20/18 05:47: POC Glucose 105 08/20/18 11:37: POC Glucose 102 08/20/18 16:20: POC Glucose 90 08/20/18 20:59: POC Glucose 90 I & O for Last 24 hours: Intake & Output 08/18/18 08/19/18 08/20/18 08/21/18 11:59 11:59 11:59 11:59 Intake Total 4111 / 4111 2999 / 2999 480 / 480 Output Total Balance 4111 / 4111 2999 / 2999 479 / 479 Weight 188 lb 2 oz 201 lb 9 oz 201 lb 8.992 oz Microbiology Reports for the Last 24 Hours: Microbiology 08/18/18 21:50 Blood Blood Culture - Preliminary NO GROWTH AFTER 48 HOURS 08/18/18 21:50 Blood Blood Culture - Preliminary 08/18/18 22:40 Urine,Catheterized Urine Culture - Preliminary Assessment and Plan (1) Sepsis Current visit: Yes Status: Acute Category: Medical Code(s): A41.9 - Sepsis, unspecified organism (2) UTI (urinary tract infection) Current visit: Yes Status: Acute Qualifiers: Urinary tract infection type: site unspecified Hematuria presence: without hematuria Qualified Code(s): N39.0 - Urinary tract infection, site not specified Category: Medical Code(s): N39.0 - Urinary tract infection, site not specified (3) Atrial fibrillation with rapid ventricular response Current visit: Yes Status: Acute Category: Medical Code(s): I48.91 - Unspecified atrial fibrillation (4) Elevated troponin I level Current visit: Yes Status: Acute Category: Medical Code(s): R74.8 - Abnormal levels of other serum enzymes (5) Renal insufficiency Current visit: Yes Status: Acute Category: Medical Code(s): N28.9 - Disorder of kidney and ureter, unspecified (6) Type 2 diabetes mellitus Current visit: Yes Status: Acute Qualifiers: Diabetes mellitus long term care pharmacist insulin use: without long term care pharmacist use Diabetes mellitus complication status: with unspecified complications Qualified Code(s): E11.8 - Type 2 diabetes mellitus with unspecified complications Category: Medical Code(s): E11.9 - Type 2 diabetes mellitus without complications (7) History of CVA (cerebrovascular accident) Current visit: No Status: Acute Category: Medical Code(s): Z86.73 - Personal history of transient ischemic attack (TIA), and cerebral infarction without residual deficits (8) Hypothyroidism Current visit: No Status: Chronic Qualifiers: Hypothyroidism type: unspecified Qualified Code(s): E03.9 - Hypothyroidism, unspecified Category: Medical Code(s): E03.9 - Hypothyroidism, unspecified (9) Chronic atrial fibrillation Current visit: Yes Status: Chronic Category: Medical Code(s): I48.2 - Chronic atrial fibrillation (10) Hyperlipidemia Current visit: No Status: Acute Category: Medical Code(s): E78.5 - Hyperlipidemia, unspecified (11) Hypertension Current visit: No Status: Acute Category: Medical Code(s): I10 - Essential (primary) hypertension - Assessment and plan all Dx Assessment and Plan for all problems:: Patient seen and examined this AM. No new complaints. Chest with increased rhonchi. Will d/c IVF and give dose of Lasix today. Still awaiting final blood and urine cultures. He can move out of step-down today
--- NOTE | 2018-08-20 11:37 | Cardiology Report ---
PROCEDURE: 2-D M-mode and color Doppler study INDICATIONS FOR THE TEST: Chest pain COPD Heart Murmur Tobacco Smoking Palpitations Fatigue Syncope Edema Hypertension +Diabetes Mellitus+ Rheumatic Fever SOB LUGO Obesity Hyperlipidemia Family History HD Additional History AFIB, CKD, CVA, PT FLAT ON BACK PATIENT INFORMATION HEIGHT: 71 WEIGHT:188 GENDER: Male B/P:101/51 2-D/M-MODE INTERPRETATION: 2-D MEASUREMENTS OBSERVED VALUES IN CMS Right Ventricular Dimension (RVDd) 2.5 Interventricular Septum (Thickness)(IVsd) 0.9 Left Ventricular Internal Dimensions(LVIDd) 4.4 Left Ventricular Posterior Wall (Thickness)(LVPWd) 1.0 Aortic Root 3.5 Aortic Cusp Separation 1.5 Left Atrial Dimensions (LAD) 5.0 2D 1. Left atrium is moderately enlarged, left ventricle is normal size, mild concentric left ventricular hypertrophy, visually estimated ejection fraction 50% with no regional wall motion abnormality. 2. The right atrium and right ventricle are mildly enlarged with normal contractility. 3. The aortic valve is thickened and calcified with restriction the leaflet mobility. 4. The mitral valve has mitral calcification, leaflets are minimally thickened. 5. The tricuspid valve is grossly normal. 6. The pulmonic valve is poorly visualized. 7. No significant pericardial effusion noted. DOPPLER INTERROGATION: The maximum aortic out flow velocity recorded study is 2.6 m/s, mean gradient and valve area is not calculated, a repeat study with Doppler interrogation of the aortic valve is recommended for assessment of aortic stenosis, there is no aortic insufficiency. There is mild mitral and tricuspid regurgitation, tricuspid regurgitation jet velocity is inadequate for calculation of the right ventricular systolic pressure. CONCLUSION: 1. Moderately enlarged left atrium, normal left ventricular size, mild concentric left ventricular hypertrophy, visually estimated ejection fraction 50% with no regional wall motion abnormality, diastolic parameters are inconclusive. 2. Thickened and calcified aortic valve with restriction the leaflet mobility, the maximum aortic out flow velocity recorded study 2.6 m/s, mean gradient in the aortic valve area is not calculated, a repeat study with Doppler interrogation of the aortic valve is recommended for assessment of the aortic stenosis, there is no aortic insufficiency. 3. Mild mitral and tricuspid regurgitation 4. No significant pericardial effusion noted.
[2018-08-21 06:25] LABS: Basophils % 0.3 % (0.1-2.0); Eosinophils # 0.1 K/mm3 (0.0-0.4); Hematocrit 29.2 % (42.0-52.0); Hemoglobin 9.3 g/dL (14.1-18.0); Lymphocytes # 0.5 K/mm3 (0.7-4.5); Lymphocytes % 6.4 % (10-50); Mean Corpuscular HGB Conc 31.8 g/dL (31.8-35.4); Mean Corpuscular Hemoglobin 31.5 pg (27.0-31.2); Mean Corpuscular Volume 98.9 fl (80-94); Mean Platelet Volume 6.9 fl (7.4-10.4); Monocytes # 0.2 K/mm3 (0.1-1.0); Monocytes % 2.3 % (1.7-9.3); Neutrophils # 7.1 K/mm3 (1.8-7.8); Platelet Count 128 K/mm3 (142-424); Red Blood Count 2.95 M/mm3 (4.60-6.20); Red Cell Distribution Width 14.8 % (11.5-17.5); White Blood Count 7.9 K/mm3 (4.8-10.8)
[2018-08-21 06:50] LABS: Albumin Level 2.1 gm/dL (3.4-5.0); Albumin/Globulin Ratio 0.7 (1.1-1.8); Anion Gap 13.5 mEq/L (5-15); Bilirubin,Total 0.5 mg/dL (0.2-1.0); Calcium 8.2 mg/dL (8.5-10.1); Globulin 3.1 gm/dl (1.3-3.2); Potassium 3.5 mmoL/L (3.5-5.1); Total Protein,Serum 5.2 gm/dL (6.4-8.2)
[2018-08-21 07:29] LABS: Eosinophils % 1 % (0-3); Lymphocytes % 9 % (10-50); Monocytes % 2 % (2-9); Neutrophils % 88 % (42-76); RBC Morphology Normal; Total Cells Counted 100
--- NOTE | 2018-08-21 09:30 | Progress Note ---
Internal Medicine - PN: Subj *Date: 08/21/18 *Time: 09:27 Interval history: Family reported that he was confused throughout the day yesterday although nursing staff documented him to be alert and oriented x3. He appears to rested well last night although was trying to get out of bed on his own at one point. He was sleeping soundly when I entered the room this morning. He awakened easily but was disoriented to date and place. He has no complaints of shortness of breath or chest pain. No nausea or vomiting. Denies abdominal pain. Exam Vital signs and Labs for Last 24 Hours: Temp Pulse Resp BP Pulse Ox 98.6 F 110 H 110 H 118/71 97 08/21/18 08:00 08/21/18 08:00 08/21/18 08:00 08/21/18 08:00 08/21/18 08:00 Laboratory Results - last 24 hr 08/18/18 22:40: Urine Color Yellow, Urine Appearance Clear, Urine pH 6.0, Ur Specific [place] >= 1.030, Urine Protein Trace, Urine Glucose (UA) Negative, Urine Ketones Negative, Urine Blood 2+, Urine Nitrate Negative, Urine Bilirubin Negative, Urine Urobilinogen 0.2, Ur Leukocyte Esterase 1+ A, Urine RBC 10-20, Urine WBC 50-100, Urine Bacteria 1+ 08/20/18 11:37: POC Glucose 102 08/20/18 16:20: POC Glucose 90 08/20/18 20:59: POC Glucose 90 08/21/18 06:00: WBC 7.9, RBC 2.95 L, Hgb 9.3 L, Hct 29.2 L, MCV 98.9 H, MCH 31.5 H, MCHC 31.8, RDW 14.8, Plt Count 128 L, MPV 6.9 L, Neut % (Auto) 90.0 H, Lymph % (Auto) 6.4 L, [place] % (Auto) 2.3, Eos % (Auto) 1.0, Baso % (Auto) 0.3, Neut # (Auto) 7.1, Lymph # (Auto) 0.5 L, [place] # (Auto) 0.2, Eos # (Auto) 0.1, Baso # (Auto) 0.0, Total Counted 100, Neutrophils % (Manual) 88 H, Lymphocytes % (Manu al) 9 L, Monocytes % (Manual) 2, Eosinophils % (Manual) 1, Platelet Estimate Normal, RBC Morphology Normal 08/21/18 06:00: Sodium 136, Potassium 3.5 D, Chloride 102, Carbon Dioxide 24, Anion Gap 13.5, BUN 22 H D, Creatinine 1.09 D, Estimated Creat Clear 61, Estimated GFR 64, Est GFR ( Amer) 77 D, Glucose 80, Calcium 8.2 L, Total Bilirubin 0.5, AST 11 L, ALT 11 L, Alkaline Phosphatase 91, Total Protein 5.2 L, Albumin 2.1 L, Globulin 3.1, Albumin/Globulin Ratio 0.7 L 08/21/18 06:07: POC Glucose 79 I & O for Last 24 hours: Intake & Output 08/18/18 08/19/18 08/20/18 08/21/18 11:59 11:59 11:59 11:59 Intake Total 4111 / 4111 2999 / 2999 770 / 770 Output Total Balance 4111 / 4111 2999 / 2999 769 / 769 Weight 188 lb 2 oz 201 lb 9 oz 201 lb 8.992 oz Microbiology Reports for the Last 24 Hours: Microbiology 08/18/18 21:50 Blood Blood Culture - Preliminary Gram Positive Cocci 08/18/18 22:40 Urine,Catheterized Urine Culture - Preliminary 08/18/18 21:50 Blood Blood Culture - Preliminary NO GROWTH AFTER 48 HOURS Narrative: Color is good. He is breathing more easily this morning. Chest reveals a few bibasilar rales. Heart is irregularly irregular and mildly tachycardic. Abdomen is soft and nondistended with no unusual masses or tenderness. TEDS in place. Assessment and Plan (1) UTI (urinary tract infection) Current visit: Yes Status: Acute Qualifiers: Urinary tract infection type: site unspecified Hematuria presence: without hematuria Qualified Code(s): N39.0 - Urinary tract infection, site not specified Category: Medical Code(s): N39.0 - Urinary tract infection, site not specified (2) Atrial fibrillation with rapid ventricular response Current visit: Yes Status: Acute Category: Medical Code(s): I48.91 - Un specified atrial fibrillation (3) Elevated troponin I level Current visit: Yes Status: Acute Category: Medical Code(s): R74.8 - Abnormal levels of other serum enzymes (4) Renal insufficiency Current visit: Yes Status: Acute Category: Medical Code(s): N28.9 - Disorder of kidney and ureter, unspecified (5) Type 2 diabetes mellitus Current visit: Yes Status: Acute Qualifiers: Diabetes mellitus [facility] insulin use: without regional telecommunications specialist use Diabetes mellitus complication status: with unspecified complications Qualified Code(s): E11.8 - Type 2 diabetes mellitus with unspecified complications Category: Medical Code(s): E11.9 - Type 2 diabetes mellitus without complications (6) History of CVA (cerebrovascular accident) Current visit: No Status: Acute Category: Medical Code(s): Z86.73 - Personal history of transient ischemic attack (TIA), and cerebral infarction without residual deficits (7) Hypothyroidism Current visit: No Status: Chronic Qualifiers: Hypothyroidism type: unspecified Qualified Code(s): E03.9 - Hypothyroidism, unspecified Category: Medical Code(s): E03.9 - Hypothyroidism, unspecified (8) Chronic atrial fibrillation Current visit: Yes Status: Chronic Category: Medical Code(s): I48.2 - Chronic atrial fibrillation (9) Hyperlipidemia Current visit: No Status: Acute Category: Medical Code(s): E78.5 - Hyperlipidemia, unspecified (10) Hypertension Current visit: No Status: Acute Category: Medical Code(s): I10 - Essential (primary) hypertension (11) Aortic stenosis Current visit: Yes Status: Acute Category: Medical Code(s): I35.0 - Nonrheumatic aortic (valve) stenosis (12) Altered mental status Current visit: Yes Status: Acute Category: Medical Code(s): R41.82 - Altered mental status, unspecified - Assessment and plan all Dx Assessment and Plan for all problems:: The etiology of his altered mental status is not clear but likely related to his acute illness. Another stroke would be a consideration and in the differential for his altered mental status although clinically does not appear to be the case. His laboratory data this morning is satisfactory. His renal function has improved. His final blood culture shows no growth. Urine culture did not grow any organisms. He remains on the antibiotics. We will switch to an oral antibiotic. His blood sugar has been normal off the metformin. We will add verapamil per cardiology recommendations for further rate control.
[2018-08-22 07:41] LABS: Basophils % 0.5 % (0.1-2.0); Eosinophils # 0.1 K/mm3 (0.0-0.4); Hematocrit 28.4 % (42.0-52.0); Hemoglobin 9.1 g/dL (14.1-18.0); Lymphocytes # 0.7 K/mm3 (0.7-4.5); Mean Corpuscular HGB Conc 32.2 g/dL (31.8-35.4); Mean Corpuscular Hemoglobin 31.6 pg (27.0-31.2); Mean Corpuscular Volume 98.3 fl (80-94); Mean Platelet Volume 6.6 fl (7.4-10.4); Monocytes # 0.3 K/mm3 (0.1-1.0); Monocytes % 3.4 % (1.7-9.3); Neutrophils # 7.1 K/mm3 (1.8-7.8); Neutrophils % 87.1 % (37.0-80.0); Platelet Count 137 K/mm3 (142-424); Red Blood Count 2.89 M/mm3 (4.60-6.20); Red Cell Distribution Width 14.7 % (11.5-17.5); White Blood Count 8.1 K/mm3 (4.8-10.8)
[2018-08-22 07:53] LABS: Albumin/Globulin Ratio 0.6 (1.1-1.8); Anion Gap 13.2 mEq/L (5-15); Bilirubin,Total 0.4 mg/dL (0.2-1.0); Calcium 8.5 mg/dL (8.5-10.1); Globulin 3.6 gm/dl (1.3-3.2); Lymphocytes % 7 % (10-50); Monocytes % 2 % (2-9); Neutrophils % 91 % (42-76); Potassium 3.2 mmoL/L (3.5-5.1); Total Cells Counted 100; Total Protein,Serum 5.6 gm/dL (6.4-8.2)
[2018-08-22 07:54] LABS: Tear Drop Cells 1+
--- NOTE | 2018-08-22 08:48 | Progress Note ---
Internal Medicine - PN: Subj Interval history: He had a little better day yesterday his confusion. He did develop some loose stools through the day. He is known to have a history of microscopic colitis and has taken budesonide in the past. He has no complaints of nausea or abdominal pain this morning. States he rested well last night. Exam Vital signs and Labs for Last 24 Hours: Temp Pulse Resp BP Pulse Ox 98.0 F 88 20 127/72 95 08/22/18 08:00 08/22/18 08:00 08/22/18 08:00 08/22/18 08:00 08/22/18 08:00 Laboratory Results - last 24 hr 08/18/18 22:40: Urine Color Yellow, Urine Appearance Clear, Urine pH 6.0, Ur Specific [place] >= 1.030, Urine Protein Trace, Urine Glucose (UA) Negative, Urine Ketones Negative, Urine Blood 2+, Urine Nitrate Negative, Urine Bilirubin Negative, Urine Urobilinogen 0.2, Ur Leukocyte Esterase 1+ A, Urine RBC 10-20, Urine WBC 50-100, Urine Bacteria 1+ 08/21/18 11:44: POC Glucose 84 08/21/18 16:04: POC Glucose 81 08/21/18 17:45: Stl Aeromonas (PCR) Not detected, Stl C. cayetanensis PCR Not detected, Stool Rotavirus (PCR) Not detected, Stl Adenov F 40/41 PCR Not detected, Stool Astrovirus (PCR) Not detected, Stool Campylobacter PCR Not detected, Stl C.difficile Tox PCR Not detected, Stool Cryptosporidium PCR Not detected, Stl E.coli Shiga Tox PCR Not detected, Stool E coli O157 PCR Not detected, Stl Enterotoxigenic E PCR Not detected, Stool EPEC (PCR) Not detected, Stool EAEC (PCR) Not detected, Stl E. histolytica PCR Not detected, Stool Giardia Lamblia PCR Not detected, Stool Salmonella PCR Not detected, Stool Sapovirus (PCR) Not detected, Stl P. shigelloides PCR Not detected, Stl Shigella/EIEC PCR Not detected, St Y.enterocolitica PCR Not detected, Stool Vibrio (PCR) Not detected, Stl Vibrio cholerae PCR Not detected, Stl Norovirus GI/GII PCR Not detected 08/21/18 20:12: POC Glucose 95 08/22/18 06:43: POC Glucose 82 08/22/18 06:55: WBC 8.1, RBC 2.89 L, Hgb 9.1 L, Hct 28.4 L, MCV 98.3 H, MCH 31.6 H, MCHC 32.2, RDW 14.7, Plt Count 137 L, MPV 6.6 L, Neut % (Auto) 87.1 H, Lymph % (Auto) 8.0 L, [place] % (Auto) 3.4, Eos % (Auto) 1.0, Baso % (Auto) 0.5, Neut # (Auto) 7.1, Lymph # (Auto) 0.7, [place] # (Auto) 0.3, Eos # (Auto) 0.1, Baso # (Auto) 0.0, Total Counted 100, Neutrophils % (Manual) 91 H, Lymphocytes % (Manual) 7 L, Monocytes % (Manual) 2, Platelet Estimate Slight decrease, Tear Drop Cells 1+ 08/22/18 06:55: Sodium 137, Potassium 3.2 L, Chloride 103, Carbon Dioxide 24, Anion Gap 13.2, BUN 20 H, Creatinine 1.06, Estimated Creat Clear 60, Estimated GFR 66, Est GFR ( Amer) 80, Glucose 85, Calcium 8.5, Magnesium 1.3 L, Total Bilirubin 0.4, AST 10 L, ALT 8 L D, Alkaline Phosphatase 94, Total Protein 5.6 L, Albumin 2.0 L, Globulin 3.6 H, Albumin/Globulin Ratio 0.6 L I & O for Last 24 hours: Intake & Output 08/19/18 08/20/18 08/21/18 08/22/18 11:59 11:59 11:59 11:59 Intake Total 4111 / 4111 2999 / 2999 770 / 770 1080 / 1080 Output Total Balance 4111 / 4111 2999 / 2999 769 / 769 1080 / 1080 Weight 188 lb 2 oz 201 lb 9 oz 201 lb 8.992 oz 195 lb 8 oz Microbiology Reports for the Last 24 Hours: Microbiology 08/18/18 21:50 Blood Blood Culture - Preliminary Staphylococcus capitis 08/18/18 22:40 Urine,Catheterized Urine Culture - Final Gram Positive Bacilli Escherichia coli Staphylococcus epidermidis 08/18/18 22:40 Urine,Catheterized - Final Not Reportable 08/18/18 22:40 Urine,Catheterized - Final Not Reportable 08/18/18 22:40 Urine,Catheterized - Final Not Reportable 08/18/18 22:40 Urine,Catheterized - Final Not Reportable 08/18/18 22:40 Urine,Catheterized - Final Not Reportable 08/18/18 22:40 Urine,Catheterized - Final Not Reportable Narrative: He is easily awakened from sleep this morning. He is more alert. He is oriented to name, date, and place. Color is good. Heart is irregularly irregular. Chest reveals few scattered rhonchi. No rales or wheezes. Abdomen is soft and nondistended with no unusual masses or tenderness. Extremities no edema. Assessment and Plan (1) UTI (urinary tract infection) Current visit: Yes Status: Acute Qualifiers: Urinary tract infection type: site unspecified Hematuria presence: without hematuria Qualified Code(s): N39.0 - Urinary tract infection, site not specified Category: Medical Code(s): N39.0 - Urinary tract infection, site not specified (2) Atrial fibrillation with rapid ventricular response Current visit: Yes Status: Acute Category: Medical Code(s): I48.91 - Unspecified atrial fibrillation (3) Elevated troponin I level Current visit: Yes Status: Acute Category: Medical Code(s): R74.8 - Abnormal levels of other serum enzymes (4) Renal insufficiency Current visit: Yes Status: Acute Category: Medical Code(s): N28.9 - Disorder of kidney and ureter, unspecified (5) Type 2 diabetes mellitus Current visit: Yes Status: Acute Qualifiers: Diabetes mellitus oil heaterman insulin use: without skilled nursing use Diabetes mellitus complication status: with unspecified complications Qualified Code(s): E11.8 - Type 2 diabetes mellitus with unspecified complications Category: Medical Code(s): E11.9 - Type 2 diabetes mellitus without compl ications (6) History of CVA (cerebrovascular accident) Current visit: No Status: Acute Category: Medical Code(s): Z86.73 - Personal history of transient ischemic attack (TIA), and cerebral infarction without residual deficits (7) Hypothyroidism Current visit: No Status: Chronic Qualifiers: Hypothyroidism type: unspecified Qualified Code(s): E03.9 - Hypothyroidism, unspecified Category: Medical Code(s): E03.9 - Hypothyroidism, unspecified (8) Chronic atrial fibrillation Current visit: Yes Status: Chronic Category: Medical Code(s): I48.2 - Chronic atrial fibrillation (9) Hyperlipidemia Current visit: No Status: Acute Category: Medical Code(s): E78.5 - Hyperlipidemia, unspecified (10) Hypertension Current visit: No Status: Acute Category: Medical Code(s): I10 - Essential (primary) hypertension (11) Aortic stenosis Current visit: Yes Status: Acute Category: Medical Code(s): I35.0 - Nonrheumatic aortic (valve) stenosis (12) Altered mental status Current visit: Yes Status: Acute Category: Medical Code(s): R41.82 - Altered mental status, unspecified - Assessment and plan all Dx Assessment and Plan for all problems:: Altered mental status seems to be clearing. His diarrhea may be related to his history of colitis or could be due to his current antibiotics. Will restart his budesonide. I have asked the staff to get him out of bed and up in the chair today. We will switch to oral antibiotics today. Possibly discharge to [place] tomorrow
[2018-08-23 06:43] LABS: Basophils % 0.3 % (0.1-2.0); Eosinophils # 0.1 K/mm3 (0.0-0.4); Eosinophils % 0.9 % (0.1-12.0); Hematocrit 29.2 % (42.0-52.0); Hemoglobin 9.4 g/dL (14.1-18.0); Lymphocytes # 0.8 K/mm3 (0.7-4.5); Lymphocytes % 9.9 % (10-50); Mean Corpuscular HGB Conc 32.1 g/dL (31.8-35.4); Mean Corpuscular Hemoglobin 31.8 pg (27.0-31.2); Mean Platelet Volume 7.3 fl (7.4-10.4); Monocytes # 0.3 K/mm3 (0.1-1.0); Monocytes % 4.1 % (1.7-9.3); Neutrophils # 7.2 K/mm3 (1.8-7.8); Neutrophils % 84.8 % (37.0-80.0); Platelet Count 157 K/mm3 (142-424); Red Blood Count 2.95 M/mm3 (4.60-6.20); Red Cell Distribution Width 14.9 % (11.5-17.5); White Blood Count 8.5 K/mm3 (4.8-10.8)
[2018-08-23 06:55] LABS: Anion Gap 12.3 mEq/L (5-15); Calcium 8.8 mg/dL (8.5-10.1); Potassium 3.3 mmoL/L (3.5-5.1)
--- NOTE | 2018-08-23 08:03 | Progress Note ---
<Nevin Menendez - Last Filed: 08/23/18 08:00> Internal Medicine - PN: Subj *Date: 08/23/18 *Time: 08:00 Interval history: Patient states he is doing well. He feels that his urinary problem has resolved. He feels that he was taking too many medications in the care home. He continues to have a cough but denies shortness of breath. He denies chest pain. He was out of bed and sat in the chair yesterday. He tolerated this well. Had some diarrhea. Exam Vital signs and Labs for Last 24 Hours: Temp Pulse Resp BP Pulse Ox 97.7 F 89 23 120/71 97 08/23/18 04:00 08/23/18 04:00 08/23/18 04:00 08/23/18 04:00 08/23/18 04:00 Laboratory Results - last 24 hr 08/22/18 11:28: POC Glucose 94 08/22/18 16:38: POC Glucose 103 08/22/18 19:36: POC Glucose 118 H 08/23/18 05:59: WBC 8.5, RBC 2.95 L, Hgb 9.4 L, Hct 29.2 L, MCV 99.0 H, MCH 31.8 H, MCHC 32.1, RDW 14.9, Plt Count 157, MPV 7.3 L, Neut % (Auto) 84.8 H, Lymph % (Auto) 9.9 L, Emanuel % (Auto) 4.1, Eos % (Auto) 0.9, Baso % (Auto) 0.3, Neut # (Auto) 7.2, Lymph # (Auto) 0.8, Emanuel # (Auto) 0.3, Eos # (Auto) 0.1, Baso # (Auto) 0.0 08/23/18 05:59: Sodium 137, Potassium 3.3 L, Chloride 103, Carbon Dioxide 25, Anion Gap 12.3, BUN 21 H, Creatinine 1.11, Estimated Creat Clear 56, Estimated GFR 63, Est GFR ( Amer) 76, Glucose 79, Calcium 8.8 08/23/18 06:16: POC Glucose 79 I & O for Last 24 hours: Intake & Output 08/20/18 08/21/18 08/22/18 08/23/18 11:59 11:59 11:59 11:59 Intake Total 2999 / 2999 770 / 770 1080 / 1080 840 / 840 Output Total Balance 2999 / 2999 769 / 769 1080 / 1080 840 / 840 Weight 201 lb 9 oz 201 lb 8.992 oz 195 lb 8 oz 191 lb 1 oz Microbiology Reports for the Last 24 Hours: Microbiology 08/18/18 21:50 Blood Blood Culture - Preliminary Staphylococcus capitis 08/18/18 22:40 Urine,Catheterized Urine Culture - Final Gram Positive Bacilli Escherichia coli Staphylococcus epidermidis - Constitutional no acute distress Comments: Conversant - *Routine Respiratory Exam Comments: Crackles on the right - *Routine Cardiovascular Exam Present: irregularly irregular Comments: Monitor showing atrial fibrillation with ventricular rate in the 90s - *Routine Abdominal Exam Present: soft, normoactive bowel sounds. Absent: tenderness, distended - *Routine Extremities Exam Absent: edema, calf tenderness - *Routine Neurological Exam Present: alert, oriented X3 Called me by my full name. Assessment and Plan (1) UTI (urinary tract infection) Current visit: Yes Status: Acute Qualifiers: Urinary tract infection type: site unspecified Hematuria presence: without hematuria Qualified Code(s): N39.0 - Urinary tract infection, site not specified Category: Medical Code(s): N39.0 - Urinary tract infection, site not specified (2) Atrial fibrillation with rapid ventricular response Current visit: Yes Status: Acute Category: Medical Code(s): I48.91 - Unspecified atrial fibrillation (3) Elevated troponin I level Current visit: Yes Status: Acute Category: Medical Code(s): R74.8 - Abnormal levels of other serum enzymes (4) Renal insufficiency Current visit: Yes Status: Acute Category: Medical Code(s): N28.9 - Disorder of kidney and ureter, unspecified (5) Type 2 diabetes mellitus Current visit: Yes Status: Acute Qualifiers: Diabetes mellitus intermodal dispatcher insulin use: without mcc use Diabetes mellitus complication status: with unspecified complications Qualified Code(s): E11.8 - Type 2 diabetes mellitus with unspecified complications Category: Medical Code(s): E11.9 - Type 2 diabetes mellitus without complications (6) History of CVA (cerebrovascular accident) Current visit: No Status: Acute Category: Medical Code(s): Z86.73 - Personal history of transient ischemic attack (TIA), and cerebral infarction without residual deficits (7) Hypothyroidism Current visit: No Status: Chronic Qualifiers: Hypothyroidism type: unspecified Qualified Code(s): E03.9 - Hypothyroidism, unspecified Category: Medical Code(s): E03.9 - Hypothyroidism, unspecified (8) Chronic atrial fibrillation Current visit: Yes Status: Chronic Category: Medical Code(s): I48.2 - Chronic atrial fibrillation (9) Hyperlipidemia Current visit: No Status: Acute Category: Medical Code(s): E78.5 - Hyperlipidemia, unspecified (10) Hypertension Current visit: No Status: Acute Category: Medical Code(s): I10 - Essential (primary) hypertension (11) Aortic stenosis Current visit: Yes Status: Acute Category: Medical Code(s): I35.0 - Nonrheumatic aortic (valve) stenosis (12) Altered mental status Current visit: Yes Status: Acute Category: Medical Code(s): R41.82 - Altered mental status, unspecified (13) Debility Current visit: Yes Status: Acute Category: Medical Code(s): R53.81 - Other malaise - Assessment and plan all Dx Assessment and Plan for all problems:: continue with current; PT to see patient <Thomas Garcia - Last Filed: 08/23/18 08:27> Exam Vital signs and Labs for Last 24 Hours: Temp Pulse Resp BP Pulse Ox 97.8 F 68 24 113/55 L 98 08/23/18 08:00 08/23/18 08:00 08/23/18 08:00 08/23/18 08:00 08/23/18 08:00 Laboratory Results - last 24 hr 08/22/18 11:28: POC Glucose 94 08/22/18 16:38: POC Glucose 103 08/22/18 19:36: POC Glucose 118 H 08/23/18 05:59: WBC 8.5, RBC 2.95 L, Hgb 9.4 L, Hct 29.2 L, MCV 99.0 H, MCH 31.8 H, MCHC 32.1, RDW 14.9, Plt Count 157, MPV 7.3 L, Neut % (Auto) 84.8 H, Lymph % (Auto) 9.9 L, Emanuel % (Auto) 4.1, Eos % (Auto) 0.9, Baso % (Auto) 0.3, Neut # (Auto) 7.2, Lymph # (Auto) 0.8, Emanuel # (Auto) 0.3, Eos # (Auto) 0.1, Baso # (Auto) 0.0 08/23/18 05:59: Sodium 137, Potassium 3.3 L, Chloride 103, Carbon Dioxide 25, Anion Gap 12.3, BUN 21 H, Creatinine 1.11, Estimated Creat Clear 56, Estimated GFR 63, Est GFR ( Amer) 76, Glucose 79, Calcium 8.8 08/23/18 06:16: POC Glucose 79 I & O for Last 24 hours: Intake & Output 08/20/18 08/21/18 08/22/18 08/23/18 11:59 11:59 11:59 11:59 Intake Total 2999 / 2999 770 / 770 1080 / 1080 1080 / 1080 Output Total Balance 2999 / 2999 769 / 769 1080 / 1080 1080 / 1080 Weight 201 lb 9 oz 201 lb 8.992 oz 195 lb 8 oz 191 lb 1 oz Microbiology Reports for the Last 24 Hours: Microbiology 08/18/18 21:50 Blood Blood Culture - Preliminary Staphylococcus capitis 08/18/18 22:40 Urine,Catheterized Urine Culture - Final Gram Positive Bacilli Escherichia coli Staphylococcus epidermidis Assessment and Plan (1) UTI (urinary tract infection) Current visit: Yes Status: Acute Qualifiers: Urinary tract infection type: site unspecified Hematuria presence: without hematuria Qualified Code(s): N39.0 - Urinary tract infection, site not specified Category: Medical Code(s): N39.0 - Urinary tract infection, site not specified (2) Atrial fibrillation with rapid ventricular response Current visit: Yes Status: Acute Category: Medical Code(s): I48.91 - Unspecified atrial fibrillation (3) Elevated troponin I level Current visit: Yes Status: Acute Category: Medical Code(s): R74.8 - Abnormal levels of other serum enzymes (4) Renal insufficiency Current visit: Yes Status: Acute Category: Medical Code(s): N28.9 - Diso rder of kidney and ureter, unspecified (5) Type 2 diabetes mellitus Current visit: Yes Status: Acute Qualifiers: Diabetes mellitus intermodal dispatcher insulin use: without mcc use Diabetes mellitus complication status: with unspecified complications Qualified C ode(s): E11.8 - Type 2 diabetes mellitus with unspecified complications Category: Medical Code(s): E11.9 - Type 2 diabetes mellitus without complications (6) History of CVA (cerebrovascular accident) Current visit: No Status: Acute Category: Medical Code(s): Z86.73 - Personal history of transient ischemic attack (TIA), and cerebral infarction without residual deficits (7) Hypothyroidism Current visit: No Status: Chronic Qualifiers: Hypothyroidism type: unspecified Qualified Code(s): E03.9 - Hypothyroidism, unspecified Category: Medical Code(s): E03.9 - Hypothyroidism, unspecified (8) Chronic atrial fibrillation Current visit: Yes Status: Chronic Category: Medical Code(s): I48.2 - Chronic atrial fibrillation (9) Hyperlipidemia Current visit: No Status: Acute Category: Medical Code(s): E78.5 - Hyperlipidemia, unspecified (10) Hypertension Current visit: No Status: Acute Category: Medical Code(s): I10 - Essential (primary) hypertension (11) Aortic stenosis Current visit: Yes Status: Acute Category: Medical Code(s): I35.0 - Nonrheumatic aortic (valve) stenosis (12) Altered mental status Current visit: Yes Status: Acute Category: Medical Code(s): R41.82 - Altered mental status, unspecified (13) Debility Current visit: Yes Status: Acute Category: Medical Code(s): R53.81 - Other malaise - Assessment and plan all Dx Assessment and Plan for all problems:: Patient seen and examined. Concur with above. His mental status is much more clear this morning. He is more hoarse this AM but denies sore throat. No SOA. He was able to get up in chair yesterday but is weak. Will get PT eval today and possibly discharge to [facility] tomorrow.
[2018-08-24 07:11] LABS: Basophils % 0.5 % (0.1-2.0); Eosinophils # 0.1 K/mm3 (0.0-0.4); Eosinophils % 0.9 % (0.1-12.0); Hematocrit 26.6 % (42.0-52.0); Hemoglobin 8.6 g/dL (14.1-18.0); Lymphocytes # 0.7 K/mm3 (0.7-4.5); Lymphocytes % 10.2 % (10-50); Mean Corpuscular HGB Conc 32.4 g/dL (31.8-35.4); Mean Corpuscular Hemoglobin 31.9 pg (27.0-31.2); Mean Corpuscular Volume 98.3 fl (80-94); Monocytes # 0.3 K/mm3 (0.1-1.0); Monocytes % 4.3 % (1.7-9.3); Neutrophils # 5.5 K/mm3 (1.8-7.8); Neutrophils % 84.1 % (37.0-80.0); Platelet Count 143 K/mm3 (142-424); Red Cell Distribution Width 14.9 % (11.5-17.5); White Blood Count 6.6 K/mm3 (4.8-10.8)
[2018-08-24 07:19] LABS: Anion Gap 12.7 mEq/L (5-15); Calcium 8.9 mg/dL (8.5-10.1); Potassium 3.7 mmoL/L (3.5-5.1)
--- NOTE | 2018-08-24 09:04 | Progress Note ---
<Nevin Menendez - Last Filed: 08/24/18 09:01> Internal Medicine - PN: Subj *Date: 08/24/18 (n) *Time: 09:01 Interval history: Patient states he is doing okay. He is going back to [place] today. He set up briefly yesterday. He states he cannot sit up for very long due to burning in his hip area. He is eating without problems. He states his bowels are moving with no further diarrhea. He denies chest pain and shortness of breath. Exam Vital signs and Labs for Last 24 Hours: Temp Pulse Resp BP Pulse Ox 98.6 F 79 18 102/52 L 99 08/24/18 08:00 08/24/18 08:00 08/24/18 08:00 08/24/18 08:00 08/24/18 08:00 Laboratory Results - last 24 hr 08/23/18 11:35: POC Glucose 89 08/23/18 16:29: POC Glucose 94 08/23/18 20:42: POC Glucose 98 08/24/18 06:10: POC Glucose 92 08/24/18 06:35: WBC 6.6, RBC 2.70 L, Hgb 8.6 L, Hct 26.6 L, MCV 98.3 H, MCH 31.9 H, MCHC 32.4, RDW 14.9, Plt Count 143, MPV 7.0 L, Neut % (Auto) 84.1 H, Lymph % (Auto) 10.2, Haralson % (Auto) 4.3, Eos % (Auto) 0.9, Baso % (Auto) 0.5, Neut # (Auto) 5.5, Lymph # (Auto) 0.7, [place]on # (Auto) 0.3, Eos # (Auto) 0.1, Baso # (Auto) 0.0 08/24/18 06:35: Sodium 138, Potassium 3.7, Chloride 104, Carbon Dioxide 25, Anion Gap 12.7, BUN 25 H, Creatinine 1.26, Estimated Creat Clear 50, Estimated GFR 54 L, Est GFR ( Amer) 65, Glucose 91, Calcium 8.9 I & O for Last 24 hours: Intake & Output 08/21/18 08/22/18 08/23/18 08/24/18 11:59 11:59 11:59 11:59 Intake Total 770 / 770 1080 / 1080 1080 / 1080 1080 / 1080 Output Total Balance 769 / 769 1080 / 1080 1080 / 1080 1080 / 1080 Weight 201 lb 8.992 oz 195 lb 8 oz 191 lb 1 oz 193 lb 3 oz Microbiology Reports for the Last 24 Hours: Microbiology 08/18/18 21:50 Blood Blood Culture - Final NO GROWTH AFTER 5 DAYS - Constitutional no acute distress Comments: Talkative - *Routine Respiratory Exam Present: CTA bilaterally (Anteriorly and posteriorly) - *Routine Cardiovascular Exam Present: irregular rhythm - *Routine Abdominal Exam Present: soft, normoactive bowel sounds. Absent: tenderness, distended - *Routine Extremities Exam Absent: edema, calf tenderness - *Routine Skin Exam Present: intact (On buttocks). Absent: erythema - *Routine Neurological Exam Present: alert, oriented X3 Assessment and Plan (1) UTI (urinary tract infection) Status: Acute Qualifiers: Urinary tract infection type: site unspecified Hematuria presence: without hematuria Qualified Code(s): N39.0 - Urinary tract infection, site not specified Category: Medical Code(s): N39.0 - Urinary tract infection, site not specified (2) Atrial fibrillation with rapid ventricular response Status: Acute Category: Medical Code(s): I48.91 - Unspecified atrial fibrillation (3) Elevated troponin I level Status: Acute Category: Medical Code(s): R74.8 - Abnormal levels of other serum enzymes (4) Renal insufficiency Status: Acute Category: Medical Code(s): N28.9 - Disorder of kidney and ureter, unspecified (5) Type 2 diabetes mellitus Status: Acute Qualifiers: Diabetes mellitus marine oil terminal superintendent insulin use: without nursing home use Diabetes mellitus complication status: with unspecified complications Qualified Code(s): E11.8 - Type 2 diabetes mellitus with unspecified complications Category: Medical Code(s): E11.9 - Type 2 diabetes mellitus without complications (6) History of CVA (cerebrovascular accident) Status: Acute Category: Medical Code(s): Z86.73 - Personal history of transient ischemic attack (TIA), and cerebral infarction without residual deficits (7) Hypothyroidism Status: Chronic Qualifiers: Hypothyroidism type: unspecified Qualified Code(s): E03.9 - Hypothyroidism, unspecified Category: Medical Code(s): E03.9 - Hypothyroidism, unspecified (8) Chronic atrial fibrillation Status: Chronic Category: Medical Code(s): I48.2 - Chronic atrial fibrillation (9) Hyperlipidemia Status: Acute Category: Medical Code(s): E78.5 - Hyperlipidemia, unspecified (10) Hypertension Status: Acute Category: Medical Code(s): I10 - Essential (primary) hypertension (11) Aortic stenosis Status: Acute Category: Medical Code(s): I35.0 - Nonrheumatic aortic (valve) stenosis (12) Altered mental status Status: Acute Category: Medical Code(s): R41.82 - Altered mental status, unspecified (13) Debility Status: Acute Category: Medical Code(s): R53.81 - Other malaise - Assessment and plan all Dx Assessment and Plan for all problems:: Patient will return to [place] today with oral antibiotics <Thomas Garcia - Last Filed: 08/24/18 17:24> Exam Vital signs and Labs for Last 24 Hours: Temp Pulse Resp BP Pulse Ox 98.6 F 79 18 102/52 L 99 08/24/18 08:00 08/24/18 08:00 08/24/18 08:00 08/24/18 08:00 08/24/18 08:00 Laboratory Results - last 24 hr 08/23/18 20:42: POC Glucose 98 08/24/18 06:10: POC Glucose 92 08/24/18 06:35: WBC 6.6, RBC 2.70 L, Hgb 8.6 L, Hct 26.6 L, MCV 98.3 H, MCH 31.9 H, MCHC 32.4, RDW 14.9, Plt Count 143, MPV 7.0 L, Neut % (Auto) 84.1 H, Lymph % (Auto) 10.2, Haralson % (Auto) 4.3, Eos % (Auto) 0.9, Baso % (Auto) 0.5, Neut # (Auto) 5.5, Lymph # (Auto) 0.7, Haralson # (Auto) 0.3, Eos # (Auto) 0.1, Baso # (Auto) 0.0 08/24/18 06:35: Sodium 138, Potassium 3.7, Chloride 104, Carbon Dioxide 25, Anion Gap 12.7, BUN 25 H, Creatinine 1.26, Estimated Creat Clear 50, Estimated GFR 54 L, Est GFR ( Amer) 65, Glucose 91, Calcium 8.9 I & O for Last 24 hours: Intake & Output 08/22/18 08/23/18 08/24/18 08/25/18 11:59 11:59 11:59 11:59 Intake Total 1080 / 1080 1080 / 1080 1080 / 1080 Balance 1080 / 1080 1080 / 1080 1080 / 1080 Weight 195 lb 8 oz 191 lb 1 oz 193 lb 3 oz Microbiology Reports for the Last 24 Hours: Microbiology 08/18/18 21:50 Blood Blood Culture - Final NO GROWTH AFTER 5 DAYS Assessment and Plan (1) UTI (urinary tract infection) Status: Acute Qualifiers: Urinary tract infection type: site unspecified Hematuria presence: without hematuria Qualified Code(s): N39.0 - Urinary tract infection, site not specified Category: Medical Code(s): N39.0 - Urinary tract infection, site not specified (2) Atrial fibrillation with rapid ventricular response Status: Acute Category: Medical Code(s): I48.91 - Unspecified atrial fibrillation (3) Elevated troponin I level Status: Acute Category: Medical Code(s): R74.8 - Abnormal levels of other s jacques enzymes (4) Renal insufficiency Status: Acute Category: Medical Code(s): N28.9 - Disorder of kidney and ureter, unspecified (5) Type 2 diabetes mellitus Status: Acute Qualifiers: Diabetes mellitus nursing home insulin use: without marine oil terminal superintendent use Diabetes mellitus complication status: with unspecified complications Qualified Code(s): E11.8 - Type 2 diabetes mellitus with unspecified complications Category: Medical Code(s): E11.9 - Type 2 diabetes mellitus without complications (6) History of CVA (cerebrovascular accident) Status: Acute Category: Medical Code(s): Z86.73 - Personal history of transient ischemic attack (TIA), and cerebral infarction without residual deficits (7) Hypothyroidism Status: Chronic Qualifiers: Hypothyroidism type: unspecified Qualified Code(s): E03.9 - Hypothyroidism, unspecified Category: Medical Code(s): E03.9 - Hypothyroidism, unspecified (8) Chronic atrial fibrillation Status: Chronic Category: Medical Code(s): I48.2 - Chronic atrial fibrillation (9) Hyperlipidemia Status: Acute Category: Medical Code(s): E78.5 - Hyperlipidemia, unspecified (10) Hypertension Status: Acute Category: Medical Code(s): I10 - Essential (primary) hypertension (11) Aortic stenosis Status: Acute Category: Medical Code(s): I35.0 - Nonrheumatic aortic (valve) stenosis (12) Altered mental status Status: Acute Category: Medical Code(s): R41.82 - Altered mental status, unspecified (13) Debility Status: Acute Category: Medical Code(s): R53.81 - Other malaise - Assessment and plan all Dx Assessment and Plan for all problems:: Patient seen and examined. He is again more alert in the mornings than in the evenings. He is less hoarse today and not DOA. Eating better this AM. He is eager to return to [place] to start back on his therapy
--- NOTE | 2018-08-24 09:16 | Discharge Summary ---
General - General Admission date:: 08/19/18 Discharge date: 08/24/18 HPI HPI: Mr. Rutledge is an 87yo male who was transferred from [place] with c/o confusion. He was apparently lethargic and not communicating well. He was found to have a UTI in the ER and was admitted for IV abx and IVF's as he triggered the sepsis protocol. He was also found to be in atrial fibrillation with a rapid ventricular response with slightly elevated enzymes. Atrial fibrillation was chronic and he was on Eliquis therapy. He received Coreg and Cardizem p.o. along with starting IV Cardizem 5 mg/h. Cardiology was consulted for evaluation. He felt much better after receiving abx and IVF's. He stated that he had been urinating more than normal and had a cough. Hospital Course Hospital Course: In the emergency room patient was found to be in atrial fibrillation with a rapid ventricular response. After admission patient had a cardiac evaluation for his atrial fibrillation with assessment and plan as follows: 1. Will change Coreg to bisoprolol for better rate control. Increase as blood pressure tolerates. 2. Consider switching Cardizem to verapamil if needed for additional rate control. Continue holding ramipril to allow use of more rate control medications. 3. Will obtain an echocardiogram to evaluate left ventricular size and function in setting of elevated troponins. Elevated troponin is most likely secondary to rapid heart rate and demand ischemia. We will hold off on additional testing at this time and treat conservatively with medications. 4. Continue Eliquis therapy. 5. We will obtain a chest x-ray due to rhonchi and wheezing with history of IV fluids given per sepsis protocol 6. We will give 1 dose of IV digoxin 0.25 mg On 08 19 2018-day after admission patient was more alert. Verapamil for rate control and received the IV dig. He did have shortness of breath the following day and was given IV Lasix and IV fluids were discontinued. Family and nursing staff noticed periodic confusion. Renal function improved blood cultures eventually grew out Staphylococcus capitis which was felt to be contaminant. Urine culture grew out 3 bacteria with colony counts of 1000 each. Blood sugars were normal off the metformin. He did experience some loose stools. He had a negative diarrhea panel. With his history of colitis he was restarted on his budesonide. He did sit up in a chair. Physical therapy was consulted and he was noted to be very weak. He required maximum assist. On 08/24/2010 patient was ready to be discharged back to [facility]. He will continue with oral antibiotic of Levaquin. Patient did complain of burning in the hip area. He denies shortness of breath and chest pain. He was continued on oxygen at this point. Patient's condition was stable and satisfactory. Cognition varied but was good today. Rehab potential is poor. [place] [facility] [place] orders Objective Vital signs: Temp Pulse Resp BP Pulse Ox 98.6 F 79 18 102/52 L 99 08/24/18 08:00 08/24/18 08:00 08/24/18 08:00 08/24/18 08:00 08/24/18 08:00 Narrative: - Constitutional no acute distress Comments: Talkative - *Routine Respiratory Exam Present: CTA bilaterally (Anteriorly and posteriorly) - *Routine Cardiovascular Exam Present: irregular rhythm - *Routine Abdominal Exam Present: soft, normoactive bowel sounds. Absent: tenderness, distended - *Routine Extremities Exam Absent: edema, calf tenderness - *Routine Skin Exam Present: intact (On buttocks). Absent: erythema - *Routine Neurological Exam Present: alert, oriented X3 Results Completed studies during hospitalization [Text1]: Notes 08/23/18 11:05 Nurse Note by Rehana Weinberg Patient is sitting up in bed @ this time asleep, S. vietnamese and myself bathed mr. rutledge & shaved him, he has been resting well since. Laboratory Tests 08/18/18 08/18/18 08/21/18 22:20 22:40 17:45 Urine Color Yellow Urine Appearance Clear Urine pH 6.0 Ur Specific [place] >= 1.030 Urine Protein Trace Urine Glucose (UA) Negative Urine Ketones Negative Urine Blood 2+ Urine Nitrate Negative Urine Bilirubin Negative Urine Urobilinogen 0.2 Ur Leukocyte Esterase 1+ A Urine RBC 10-20 Urine WBC 50-100 Urine Bacteria 1+ Stl Aeromonas (PCR) Not detected Stl C. cayetanensis PCR Not detected Stool Rotavirus (PCR) Not detected Stl Adenov F 40/41 PCR Not detected Stool Astrovirus (PCR) Not detected Stool Campylobacter PCR Not detected Stl C.difficile Tox PCR Not detected Stool Cryptosporidium PCR Not detected Stl E.coli Shiga Tox PCR Not detected Stool E coli O157 PCR Not detected Stl Enterotoxigenic E PCR Not detected Stool EPEC (PCR) Not detected Stool EAEC (PCR) Not detected Stl E. histolytica PCR Not detected Stool Giardia Lamblia PCR Not detected Stool Salmonella PCR Not detected Stool Sapovirus (PCR) Not detected Stl P. shigelloides PCR Not detected Stl Shigella/EIEC PCR Not detected St Y.enterocolitica PCR Not detected Stool Vibrio (PCR) Not detected Stl Vibrio cholerae PCR Not detected Stl Norovirus GI/GII PCR Not detected Influenza Type A Ag Negative Influenza Type B Ag Negative Labs on day of discharge: Labs from last 24 hours 08/24/18 08/24/18 08/24/18 06:35 06:35 06:10 WBC 6.6 RBC 2.70 L Hgb 8.6 L Hct 26.6 L MCV 98.3 H MCH 31.9 H MCHC 32.4 RDW 14.9 Plt Count 143 MPV 7.0 L Neut % (Auto) 84.1 H Lymph % (Auto) 10.2 [place] % (Auto) 4.3 Eos % (Auto) 0.9 Baso % (Auto) 0.5 Neut # (Auto) 5.5 Lymph # (Auto) 0.7 [place] # (Auto) 0.3 Eos # (Auto) 0.1 Baso # (Auto) 0.0 Sodium 138 Potassium 3.7 Chloride 104 Carbon Dioxide 25 Anion Gap 12.7 BUN 25 H Creatinine 1.26 Estimated Creat Clear 50 Estimated GFR 54 L Est GFR ( Amer) 65 Glucose 91 POC Glucose 92 Calcium 8.9 08/23/18 08/23/18 08/23/18 20:42 16:29 11:35 WBC RBC Hgb Hct MCV MCH MCHC RDW Plt Count MPV Neut % (Auto) Lymph % (Auto) [place] % (Auto) Eos % (Auto) Baso % (Auto) Neut # (Auto) Lymph # (Auto) [place] # (Auto) Eos # (Auto) Baso # (Auto) Sodium Potassium Chloride Carbon Dioxide Anion Gap BUN Creatinine Estimated Creat Clear Estimated GFR Est GFR ( Amer) Glucose POC Glucose 98 94 89 Calcium Preliminary micro results at discharge 08/18/18 21:50 Blood Culture - Preliminary Blood Staphylococcus capitis - Impressions 08/18/2018 chest x-ray IMPRESSION: Chronic changes with cardiomegaly with atelectasis or infiltrate in both mid lungs and right lower lobe with chronic changes in the left lower lobe 08/18/2018 CT of the head IMPRESSION: 1. No acute intracranial findings. 2. Atrophy with chronic ischemic change. 3. Probable small area of calcification in the right parietal lobe. Recommend follow-up to confirm 08/19/2018 echocardiogram CONCLUSION: 1. Moderately enlarged left atrium, normal left ventricular size, mild concentric left ventricular hypertrophy, visually estimated ejection fraction 50% with no regional wall motion abnormality, diastolic parameters are inconclusive. 2. Thickened and calcified aortic valve with restriction the leaflet mobility, the maximum aortic out flow velocity recorded study 2.6 m/s, mean gradient in the aortic valve area is not calculated, a repeat study with Doppler interrogation of the aortic valve is recommended for assessment of the aortic stenosis, there is no aortic insufficiency. 3. Mild mitral and tricuspid regurgitation 4. No significant pericardial effusion noted. 08/19/2018 repeat chest x-ray IMPRESSION... Small pleural effusion the left with blunting left CP angle . Scant fluid outlines the minor fissure on the right is similar to yesterday. Mild prominence of central markings throughout Question of mild vascular congestion. Mild cardiomegaly. Mild basilar atelectasis right greater than left DS: Diagnosis - Discharge Diagnosis (1) UTI (urinary tract infection) Status: Acute (2) Atrial fibrillation with rapid ventricular response Status: Acute (3) Elevated troponin I level Status: Acute (4) Renal insufficiency Status: Acute (5) Type 2 diabetes mellitus Status: Acute (6) History of CVA (cerebrovascular accident) Status: Acute (7) Hypothyroidism Status: Chronic (8) Chronic atrial fibrillation Status: Chronic (9) Hyperlipidemia Status: Acute (10) Hypertension Status: Acute (11) Aortic stenosis Status: Acute (12) Altered mental status Status: Acute (13) Debility Status: Acute Discharge Plan - Patient Discharge Instructions ACTIVITY: Continue current activity DIET: continue same diet Patient Instructions: DI for Urinary Tract Infection (UTI) - Follow up Plan Follow up with: Thomas Garcia MD [Primary Care Provider] - 1 week (at [place]) Disposition: [facility] Home Medications: Home Medications Medication Instructions Recorded Confirmed Type Allopurinol [Allopurinol 100mg 100 mg PO TID 10/11/17 08/19/18 History tablet] Cholecalciferol (Vitamin D3) 2,000 unit PO DAILY 10/26/17 08/19/18 History [Vitamin D3] Loperamide HCl [Imodium 2 mg 2 mg PO Q4HP PRN 10/26/17 08/19/18 History capsule] Apixaban [Eliquis] 2.5 mg PO BID 11/12/17 08/19/18 History Acetaminophen 500 mg PO Q6HP PRN 11/13/17 08/19/18 History Ibuprofen [Ibuprofen Ib] 400 mg PO Q8HP PRN 11/13/17 08/19/18 History Multivitamin [One Daily] 1 tab PO DAILY 11/13/17 08/19/18 History Magnesium Oxide [Mag-Ox 400mg Tab] 400 mg PO DAILY 08/18/18 08/19/18 History Mirabegron [Myrbetriq] 50 mg PO DAILY 08/18/18 08/19/18 History Ascorbic Acid 500 mg PO BID 08/19/18 08/19/18 History Chlorpheniramine/Dextromethorp 5 ml PO Q4HP PRN 08/19/18 08/19/18 History [Robitussin Long-Acting Liq] Furosemide [Furosemide 20mg Tab] 20 mg PO 1600 08/19/18 08/19/18 History Levothyroxine Sodium 150 mcg PO DAILY 08/19/18 08/19/18 History [Levothyroxine 150mcg (0.15mg) Tab] Mag Carb/Aluminum Hydrox/Algin 15 ml PO Q4HP PRN 08/19/18 08/19/18 History [Gaviscon Liquid] Ondansetron HCl [Ondansetron 4mg 4 mg PO Q6HP PRN 08/19/18 08/19/18 History Tablet] Prescriptions/Medication Reconciliation: New Furosemide [Lasix 20mg tablet] 20 mg PO DAILY tablet levoFLOXacin [Levaquin 500mg tab] 500 mg PO 1100 5 Days tablet Levothyroxine Sodium [Synthroid 150mcg (0.15mg) tablet] 150 mcg PO DAILYDM tablet Potassium Chloride [Klor-Con 10mEq tab] 10 meq PO BID tablet.er Lisinopril [Lisinopril 2.5mg Tab] 2.5 mg PO DAILY #30 tab Verapamil HCl [Verapamil Sr] 120 mg PO BID #60 cap24h.pel Bisoprolol Fumarate [Zebeta 5mg tablet] 5 mg PO BID tablet Aspirin 81 mg PO DAILY #30 tab.chew Continue Allopurinol [Allopurinol 100mg tablet] 100 mg PO TID Loperamide HCl [Imodium 2 mg capsule] 2 mg PO Q4HP PRN PRN Reason: Diarrhea Cholecalciferol (Vitamin D3) [Vitamin D3] 2,000 unit PO DAILY Apixaban [Eliquis] 2.5 mg PO BID Ibuprofen [Ibuprofen Ib] 400 mg PO Q8HP PRN PRN Reason: PAIN Acetaminophen 500 mg PO Q6HP PRN PRN Reason: PAIN Multivitamin [One Daily] 1 tab PO DAILY Mirabegron [Myrbetriq] 50 mg PO DAILY Mag Carb/Aluminum Hydrox/Algin [Gaviscon Liquid] 15 ml PO Q4HP PRN PRN Reason: antacid Levothyroxine Sodium [Levothyroxine 150mcg (0.15mg) Tab] 150 mcg PO DAILY Ascorbic Acid 500 mg PO BID Ondansetron HCl [Ondansetron 4mg Tablet] 4 mg PO Q6HP PRN PRN Reason: Nausea Furosemide [Furosemide 20mg Tab] 20 mg PO 1600 Magnesium Oxide [Mag-Ox 400mg Tab] 400 mg PO DAILY Chlorpheniramine/Dextromethorp [Robitussin Long-Acting Liq] 5 ml PO Q4HP PRN PRN Reason: Cough Tramadol HCl [Ultram 50mg tablet] 50 - 100 mg PO Q6HP PRN #90 tab PRN Reason: PAIN Changed Metformin HCl 500 mg PO BID #0 Discontinued Omeprazole [Omeprazole 20mg Capsule] 20 mg PO BID Doxepin HCl [Sinequan 25mg capsule] 25 mg PO HS Budesonide [Budesonide EC] 9 mg PO DAILYP PRN PRN Reason: COLITIS Acetaminophen/Diphenhydramine [Tylenol Pm Ex-Strength Caplet] 2 tab PO HS PRN PRN Reason: Sleep Sertraline HCl [Zoloft 50mg tablet] 50 mg PO DAILY dilTIAZem HCl [Diltiazem 240mg 24Hr ER Cap] 240 mg PO DAILY Carvedilol [Carvedilol 6.25mg Tab] 12.5 mg PO BID Ferrous Sulfate [Ferrous Sulfate 325mg Tablet] 325 mg PO BID Aspirin [Aspirin 325mg Tab] 325 mg PO DAILY Vitamin B Complex [B Complex] 1 each PO DAILY Morphine Sulfate [MS Contin 15mg EXTENDED RELEASE tablet] 15 mg PO HS #30 tablet.er Nystatin [Nystatin Topical Powder 30GM] 0 gm TP BID Ramipril 10 mg PO BID
--- NOTE | 2018-08-24 09:39 | Progress Note ---
Internal Medicine - PN: Subj *Date: 08/24/18 *Time: 09:39 Exam Vital signs and Labs for Last 24 Hours: Temp Pulse Resp BP Pulse Ox 98.6 F 79 18 102/52 L 99 08/24/18 08:00 08/24/18 08:00 08/24/18 08:00 08/24/18 08:00 08/24/18 08:00 Laboratory Results - last 24 hr 08/23/18 11:35: POC Glucose 89 08/23/18 16:29: POC Glucose 94 08/23/18 20:42: POC Glucose 98 08/24/18 06:10: POC Glucose 92 08/24/18 06:35: WBC 6.6, RBC 2.70 L, Hgb 8.6 L, Hct 26.6 L, MCV 98.3 H, MCH 31.9 H, MCHC 32.4, RDW 14.9, Plt Count 143, MPV 7.0 L, Neut % (Auto) 84.1 H, Lymph % (Auto) 10.2, [place] % (Auto) 4.3, Eos % (Auto) 0.9, Baso % (Auto) 0.5, Neut # (Auto) 5.5, Lymph # (Auto) 0.7, [place] # (Auto) 0.3, Eos # (Auto) 0.1, Baso # (Auto) 0.0 08/24/18 06:35: Sodium 138, Potassium 3.7, Chloride 104, Carbon Dioxide 25, Anion Gap 12.7, BUN 25 H, Creatinine 1.26, Estimated Creat Clear 50, Estimated GFR 54 L, Est GFR ( Amer) 65, Glucose 91, Calcium 8.9 I & O for Last 24 hours: Intake & Output 08/21/18 08/22/18 08/23/18 08/24/18 23:59 23:59 23:59 23:59 Intake Total 1130 / 1130 1080 / 1080 840 / 840 480 / 480 Balance 1130 / 1130 1080 / 1080 840 / 840 480 / 480 Weight 88.677 kg 86.664 kg 87.628 kg Microbiology Reports for the Last 24 Hours: Microbiology 08/18/18 21:50 Blood Blood Culture - Final NO GROWTH AFTER 5 DAYS Assessment and Plan (1) UTI (urinary tract infection) Current visit: Yes Status: Acute Qualifiers: Urinary tract infection type: site unspecified Hematuria presence: without hematuria Qualified Code(s): N39.0 - Urinary tract infection, site not specified Category: Medical Code(s): N39.0 - Urinary tract infection, site not specified (2) Atrial fibrillation with rapid ventricular response Current visit: Yes Status: Acute Category: Medical Code(s): I48.91 - Unspecified atrial fibrillation (3) Elevated troponin I level Current visit: Yes Status: Acute Category: Medical Code(s): R74.8 - Abnormal levels of other serum enzymes (4) Renal insufficiency Current visit: Yes Status: Acute Category: Medical Code(s): N28.9 - Disorder of kidney and ureter, unspecified (5) Type 2 diabetes mellitus Current visit: Yes Status: Acute Qualifiers: Diabetes mellitus intermediate project manager insulin use: without intermediate project manager use Diabetes mellitus complication status: with unspecified complications Qualified Code(s): E11.8 - Type 2 diabetes mellitus with unspecified complications Category: Medical Code(s): E11.9 - Type 2 diabetes mellitus without complications (6) History of CVA (cerebrovascular accident) Current visit: No Status: Acute Category: Medical Code(s): Z86.73 - Personal history of transient ischemic attack (TIA), and cerebral infarction without residual deficits (7) Hypothyroidism Current visit: No Status: Chronic Qualifiers: Hypothyroidism type: unspecified Qualified Code(s): E03.9 - Hypothyroidism, unspecified Category: Medical Code(s): E03.9 - Hypothyroidism, unspecified (8) Chronic atrial fibrillation Current visit: Yes Status: Chronic Category: Medical Code(s): I48.2 - Chronic atrial fibrillation (9) Hyperlipidemia Current visit: No Status: Acute Category: Medical Code(s): E78.5 - Hyperlipidemia, unspecified (10) Hypertension Current visit: No Status: Acute Category: Medical Code(s): I10 - Essential (primary) hypertension (11) Aortic stenosis Current visit: Yes Status: Acute Category: Medical Code(s): I35.0 - Nonrheumatic aortic (valve) stenosis (12) Altered mental status Current visit: Yes Status: Acute Category: Medical Code(s): R41.82 - Altered mental status, unspecified (13) Debility Current visit: Yes Status: Acute Category: Medical Code(s): R53.81 - Other malaise The patient's infection will respond to the chosen ABx?: Yes Is the patient receiving the right drug, dose, and route?: Yes Could a more targeted ABx be ordered?: No (HOME ON LEVAQUIN)
== END 2018-08-24 11:00 ==
LOC: ER 21:34 → 2ND 21:34 → ICU 08-19 16:48 → 2ND 08-20 14:08
PROVIDERS: ADMIT Family Medicine; ATTEND Family Medicine
CPT/HCPCS: 36415; 70450; 71010; 71045; 80048; 80053; 81001; 82962; 83605; 83735; 84436; 84443; 84479; 84484; 85007; 85025; 87040; 87077; 87086; 87088; 87186; 87275; 87276; 87507; 93005; 93306; 94761; 96365; 97162; 97530; 99285; G0378; J1335

== ENCOUNTER 2018-08-31 22:19 | Inpatient (IN) ==
[2018-08-31 23:00] LABS: Basophils # 0.1 K/mm3 (0-0.2); Basophils % 0.5 % (0.1-2.0); Eosinophils % 0.2 % (0.1-12.0); Lymphocytes % 9.9 % (10-50); Mean Corpuscular HGB Conc 31.2 g/dL (31.8-35.4); Mean Corpuscular Hemoglobin 31.8 pg (27.0-31.2); Mean Platelet Volume 7.1 fl (7.4-10.4); Monocytes # 0.4 K/mm3 (0.1-1.0); Monocytes % 4.1 % (1.7-9.3); Neutrophils # 8.8 K/mm3 (1.8-7.8); Neutrophils % 85.3 % (37.0-80.0); Platelet Count 221 K/mm3 (142-424); Red Blood Count 3.14 M/mm3 (4.60-6.20); Red Cell Distribution Width 15.5 % (11.5-17.5); White Blood Count 10.3 K/mm3 (4.8-10.8)
[2018-08-31 23:16] LABS: Albumin Level 1.9 gm/dL (3.4-5.0); Albumin/Globulin Ratio 0.5 (1.1-1.8); Anion Gap 10.6 mEq/L (5-15); Bilirubin,Total 0.5 mg/dL (0.2-1.0); Calcium 11.9 mg/dL (8.5-10.1); Globulin 4.1 gm/dl (1.3-3.2); Potassium 4.6 mmoL/L (3.5-5.1)
[2018-08-31 23:56] LABS: Anisocytosis 1+; Lymphocytes % 6 % (10-50); Monocytes % 2 % (2-9); Neutrophils % 92 % (42-76); Total Cells Counted 100
[2018-08-31 23:57] LABS: Ovalocytes 1+; Stomatocytes 1+
--- NOTE | 2018-09-01 | Emergency Department Note ---
ED Disposition Clinical Impression: Renal insufficiency, Hypercalcemia, Chronic atrial fibrillation Altered mental status Qualifiers: Altered mental status type: unspecified Qualified Code(s): R41.82 - Altered mental status, unspecified Anemia Qualifiers: Anemia type: unspecified type Qualified Code(s): D64.9 - Anemia, unspecified Cellulitis Qualifiers: Site of cellulitis: trunk Site of cellulitis of trunk: back Qualified Code(s): L03.312 - Cellulitis of back [any part except buttock] Type 2 diabetes mellitus Qualifiers: Diabetes mellitus fdc insulin use: with oil heaterman use Diabetes mellitus complication status: with unspecified complications Qualified Code(s): E11.8 - Type 2 diabetes mellitus with unspecified complications; Z79.4 - intermediate card tender (current) use of insulin Disposition: Admitted as Observation Condition on Discharge: Fair - Critical Care Critical Care Time: No Attestation: On 08/31/18, the high probability of a clinically significant, sudden or life threatening deterioration of the following system(s) required my full and direct attention, intervention and personal management. The time I documented below is in addition to time spent performing reported procedures but includes the following listed in this critical care notation. Medical Decision Making - Medical Records Medical records reviewed: Yes: I reviewed the patient's medical records. - [place] Inquiry Pt receiving controlled substance: No Vital Signs: 08/31/18 22:26 09/01/18 00:16 Temperature 98.6 F Temperature Source Rectal Pulse Rate [Right Brachial] 87 88 Respiratory Rate 16 20 Blood Pressure [Right Arm] 156/72 H 121/65 Blood Pressure Mean [Right Arm] 100 83 Blood Pressure Source [Right Arm] Automatic Cuff Automatic Cuff Blood Pressure Position [Right Arm] Sitting Sitting 02 Sat by Pulse Oximetry 97 97 Oxygen Delivery Method Nasal Cannula Room Air Oxygen Flow Rate (LPM) 2 - Lab Data Lab results reviewed: Yes: I reviewed the patient's lab results. Lab Results 08/31/18 22:40: WBC 10.3, RBC 3.14 L, Hgb 10.0 L, Hct 32.0 L, MCV 102.0 H, MCH 31.8 H, MCHC 31.2 L, RDW 15.5, Plt Count 221, MPV 7.1 L, Neut % (Auto) 85.3 H, Lymph % (Auto) 9.9 L, [place] % (Auto) 4.1, Eos % (Auto) 0.2, Baso % (Auto) 0.5, Neut # (Auto) 8.8 H, Lymph # (Auto) 1.0, [place] # (Auto) 0.4, Eos # (Auto) 0.0, Baso # (Auto) 0.1, Total Counted 100, Neutrophils % (Manual) 92 H, Lymphocytes % (Manual) 6 L, Monocytes % (Manual) 2, Platelet Estimate Normal, RBC Morphology Not Reportable, Anisocytosis 1+, Ovalocytes 1+, Stomatocytes 1+ 08/31/18 22:40: Sodium 139, Potassium 4.6, Chloride 104, Carbon Dioxide 29, Anion Gap 10.6, BUN 24 H, Creatinine 1.69 H, Estimated Creat Clear 32, Estimated GFR 38 L, Est GFR ( Amer) 47 L, Glucose 97, Calcium 11.9 H, Total Bilirubin 0.5, AST 11 L, ALT 10 L, Alkaline Phosphatase 111, Total Protein 6.0 L , Albumin 1.9 L, Globulin 4.1 H, Albumin/Globulin Ratio 0.5 L 08/31/18 22:40: Lactate 2.4 H 08/31/18 23:40: Urine Color Yellow, Urine Appearance Clear, Urine pH 5.0, Ur Specific [place] >= 1.030, Urine Protein Negative, Urine Glucose (UA) Negative, Urine Ketones Negative, Urine Blood Negative, Urine Nitrate Negative, Urine Bilirubin Negative, Urine Urobilinogen 0.2, Ur Leukocyte Esterase Negative, Urine RBC 3-5, Urine WBC 3-5, Ur Squamous Epith Cells Occasional, Urine Bacteria 1+, Hyaline Casts 3-5 Result diagrams: 08/31/18 22:40 08/31/18 22:40 Orders (Tests/Meds): ORDERS Category Date Time Status XR chest portable Stat Exams 08/31/18 22:39 Taken Blood Culture Stat Micro 08/31/18 22:40 Received Wound Culture and Gram Stain Stat Micro 09/01/18 00:19 Ordered 12-lead EKG Request [ECG Request by /Anupam] Stat Y 08/31/18 22:39 Ordered - Radiology Data #1 Image(s): Chest Image Reviewed: Yes I reviewed the patient's radiology image Preliminary Findings: Abnormal (cm with chronic changes ) - ECG Data Tracing #1 Arrhythmias present: afib Ischemic changes: non-specific ST-T wave changes ECG compared to prior tracings: there are no significant changes - Physician Consults Physician Consulted: adin Reason -: Admission Resp/SOB HPI - General Chief Complaint: Shortness of Breath/Dyspnea Stated Complaint: weakness Time Seen by Provider: 08/31/18 23:00 Mode of Arrival: EMS Source of Information: Patient, Relative, EMS, Medical Record Limitations: No Limitations Description of Symptoms (Recalled from ER Triage Doc. by RN): Pt sent from [place] with low O2 sats, and weakness. - History of Present Illness wm who was sent from [facility] for low sat and generalized weakness - he was recently admitted with a fib and uti - pt has declined over the last week with dec mental status and has area of drainage lt scapular region - pt was seen by pcp today at [facility] and started on fluids MD Complaint: shortness of breath Onset (ago): day(s) Context: recent illness Severity: moderate Associated symptoms: denies other symptoms Treatment prior to arrival: oxygen - Related Data Home oxygen amount: none Home Medications Medication Instructions Recorded Confirmed Allopurinol [Allopurinol 100mg 100 mg PO TID 10/11/17 08/31/18 tablet] Cholecalciferol (Vitamin D3) 2,000 unit PO DAILY 10/26/17 08/31/18 [Vitamin D3] Loperamide HCl [Imodium 2 mg 2 mg PO Q4HP PRN 10/26/17 08/31/18 capsule] Apixaban [Eliquis] 2.5 mg PO BID 11/12/17 08/31/18 Acetaminophen 500 mg PO Q6HP PRN 11/13/17 08/31/18 Ibuprofen [Ibuprofen Ib] 400 mg PO Q8HP PRN 11/13/17 08/31/18 Multivitamin [One Daily] 1 tab PO DAILY 11/13/17 08/31/18 Magnesium Oxide [Mag-Ox 400mg Tab] 400 mg PO DAILY 08/18/18 08/31/18 Mirabegron [Myrbetriq] 50 mg PO DAILY 08/18/18 08/31/18 Ascorbic Acid 500 mg PO BID 08/19/18 08/31/18 Chlorpheniramine/Dextromethorp 5 ml PO Q4HP PRN 08/19/18 08/31/18 [Robitussin Long-Acting Liq] Furosemide [Furosemide 20mg Tab] 20 mg PO 1600 08/19/18 08/31/18 Levothyroxine Sodium 150 mcg PO DAILY 08/19/18 08/31/18 [Levothyroxine 150mcg (0.15mg) Tab] Mag Carb/Aluminum Hydrox/Algin 15 ml PO Q4HP PRN 08/19/18 08/31/18 [Gaviscon Liquid] Ondansetron HCl [Ondansetron 4mg 4 mg PO Q6HP PRN 08/19/18 08/31/18 Tablet] Aspirin 81 mg PO DAILY 08/31/18 08/31/18 Bisoprolol Fumarate [Zebeta 5mg 5 mg PO BID 08/31/18 08/31/18 tablet] Furosemide [Lasix 20mg tablet] 20 mg PO DAILY 08/31/18 08/31/18 Levothyroxine Sodium [Synthroid 150 mcg PO DAILYDM 08/31/18 08/31/18 150mcg (0.15mg) tablet] Lisinopril [Lisinopril 2.5mg Tab] 2.5 mg PO DAILY 08/31/18 08/31/18 Potassium Chloride [Klor-Con 10mEq 10 meq PO BID 08/31/18 08/31/18 tab] Verapamil HCl [Verapamil Sr] 120 mg PO BID 08/31/18 08/31/18 Previous Rx's Medication Instructions Recorded Metformin HCl 500 mg PO BID #0 08/24/18 Tramadol HCl [Ultram 50mg 50 - 100 mg PO Q6HP PRN #90 tab 08/24/18 tablet] Allergies Allergy/AdvReac Type Severity Reaction Status Date / Time atorvastatin [From Lipitor] Allergy Verified 08/18/18 21:42 [facility] History - Hepatitis A Screen Drug use history?: No High risk sexual behaviors?: No History of sexually transmitted infection?: No Currently employed?: No Childcare worker?: No Do you have indoor plumbing?: Yes Do you have electricity?: Yes Attestation statement:: This patient has been screened for Hepatitis A risk factors. I have reviewed the patient's past medical history: Yes Medical History: Reports:: Atrial Fibrillation, Cerebrovascular Accident, Diabetes Mellitus Type 2, Gastroesophageal Reflux Disease(GERD), Hyperlipidemia, Hypertension, Peripheral Vascular Disease Denies:: Atherosclerotic Heart Disease, Cancer, Diabetes Mellitus Type 1, MRSA Other Medical History: Reports: Arthritis, Cataracts, Sinus Problems, Thyroid Disease Comment: Gout. Colitis Other Surgeries: Yes: Other (Left femoral bypass, Right eye skin cancer, Rt eye implant) Amputation: No Comment: left femoral bypass 1991 - Social History Smoking Status: Former smoker Tobacco Type: cigarettes Alcohol Intake: never Occupational Status: retired Housing: custodial Household Members: other Family Hx:: Asthma, Coronary Artery Disease, Hypertension ROS Obtained: Yes All systems reviewed & no additional complaints - Constitutional Constitutional: Denies fever(s), Reports weakness - Eyes Eyes: Denies change in vision - ENT Ears, Nose, Mouth, and Throat: Denies sore throat - Cardiovascular Cardiovascular: Denies chest pain, Reports dyspnea - Respiratory Respiratory: No cough - Gastrointestinal Gastrointestingal: Denies: abdominal pain, diarrhea, vomiting - Genitourinary Male Genitourinary: Denies hematuria, Reports urinary hesitancy - Musculoskeletal Musculoskeletal: Denies joint pain, Denies joint swelling - Integumentary/Breasts Skin/Breast: Reports new lesions, Denies rash, Reports other (reddness drainage lt scapular ) - Neurologic Neurologic: Denies abnormal speech, Reports confusion, Denies focal weakness Physical Exam - General General appearance: alert, in no apparent distress - Head Head exam: normocephalic - Eye Eye exam: Present: PERRL, EOMI - ENT ENT exam: Present: mucous membranes dry - Neck Neck exam: Absent: trachea midline - Respiratory Respiratory exam: Present: other (dec bs bilat ). Absent: respiratory distress - Cardiovascular Cardiovascular exam: Present: irregular rhythm, systolic murmur, +S4 - Abdominal Exam Abdominal exam: Present: soft - Extremities Exam Extremities exam: Absent: calf tenderness - Neurological Exam Neurological exam: Present: CN II-XII intact, other (no posturing awake but dec from baseline ) - Skin Skin exam: Present: other (skin lesion lt scapula)
[2018-09-01 06:41] LABS: Anion Gap 9.6 mEq/L (5-15); Potassium 4.6 mmoL/L (3.5-5.1)
[2018-09-01 06:45] LABS: Basophils % 0.6 % (0.1-2.0); Eosinophils % 0.2 % (0.1-12.0); Hematocrit 28.3 % (42.0-52.0); Lymphocytes # 0.8 K/mm3 (0.7-4.5); Lymphocytes % 10.8 % (10-50); Mean Corpuscular HGB Conc 30.9 g/dL (31.8-35.4); Mean Corpuscular Hemoglobin 31.5 pg (27.0-31.2); Mean Corpuscular Volume 101.8 fl (80-94); Mean Platelet Volume 6.9 fl (7.4-10.4); Monocytes # 0.3 K/mm3 (0.1-1.0); Monocytes % 4.3 % (1.7-9.3); Neutrophils % 84.1 % (37.0-80.0); Platelet Count 174 K/mm3 (142-424); Red Blood Count 2.78 M/mm3 (4.60-6.20); Red Cell Distribution Width 15.4 % (11.5-17.5); White Blood Count 7.1 K/mm3 (4.8-10.8)
[2018-09-01 06:59] LABS: Calcium 12.3 mg/dL (8.5-10.1)
--- NOTE | 2018-09-01 07:30 | Pharmacy Consult Notes ---
[facility] Pharmacy VTE Monitoring - Patient Demographics Admission date: 09/01/18 Report Date: 09/01/18 Time: 07:29 Allergies/Adverse Reactions: Patient Allergies atorvastatin [From Lipitor] Allergy (Verified 08/18/18 21:42) Height: 1.75 m Weight: 82.582 kg Patient Problems: Current Active Problems Type 2 diabetes mellitus (Acute) Renal insufficiency (Acute) Chronic atrial fibrillation (Chronic) Altered mental status (Acute) Hypercalcemia (Acute) Anemia (Acute) Cellulitis (Acute) - VTE Risk Labs: VTE Related Lab Results Hgb 10.0 g/dL (14.1-18.0) L 08/31/18 22:40 Hct 28.3 % (42.0-52.0) L 09/01/18 05:58 Plt Count 174 K/mm3 (142-424) 09/01/18 05:58 BUN 24 mg/dL (7-18) H 09/01/18 05:58 Creatinine 1.66 mg/dL (0.70-1.30) H 09/01/18 05:58 Estimated Creat Clear 36 mL/min (50-200) 09/01/18 05:58 Was VTE Risk Assessment Performed: Yes VTE Risk Level: Moderate Risk Clinical Trial Participant: No - Prophylaxis VTE Prophylaxis Ordered?: Yes Types of VTE Prophylaxis: TEDS Knee High
[2018-09-01 07:58] LABS: Hemoglobin 8.7 g/dL (14.1-18.0)
--- NOTE | 2018-09-01 08:16 | History & Physical Report ---
Addendum entered and electronically signed by Nevin Menendez APRN 09/01/18 09:19: Also noted is a left scapular wound fo about 1cm with center and surrounding erythema; minimal drainage; nontender Original Note: *Admission Date: 09/01/18 <Nevin Menendez - 09/01/18 08:16> *Chief complaint: Hypoxia <Nevin Menendez - 09/01/18 08:16> *History of present illness: Mr. Cheema is an 87-year-old male with a history of atrial fibrillation, type 2 diabetes mellitus, ASCVD, gout, and recent hospitalization at [facility] for resistant urinary tract infection. Patient has just completed a course of Levaquin on 08/29/2018 after return from [facility] to [place] for ongoing care and rehabilitation. Patient has had a gradual decline since his return the past week. He has been more confused and weak. He has tried to participate in physical therapy and actually did go to physical therapy yesterday a.m. He was seen by CARL Black in the facility at which time he appeared somnolent and was hypotensive after his PT. Blood pressure did improve to 110/72 from systolic blood pressure in the 90s after resting. Several of his medications were discontinued. He was felt to be slightly dehydrated and was started on IV fluids of normal saline at 100/h. He had had a diminished urinary output. He denied pain and shortness of breath. According to his niece he had had a very poor p.o. intake for the last few days. Labs completed at [place] on 08/30/2018 revealed a normal BMP and a CBC with a white blood cell count of 7700, hemoglobin of 9.5 and hematocrit of 29.1; differential showed 82.7% neutrophils and 9.8 lymphocytes. Last evening he had a decrease in oxygen saturation with diminished mentation at [facility] and was brought to [facility] ER for evaluation. He had a repeat CT scan of the head which showed no changes. Chest x-ray was negative for acute changes. He showed a slight increase in his BUN and creatinine and white count was high normal. Calcium was also noted to be elevated. O2 sat was 97% on oxygen. Also noted was a new abscess in the left scapular area with erythema and some drainage. He was admitted for further evaluation and treatment with IV fluids, blood cultures, and culture of the wound of the left scapular area. With exam this morning patient is being fed his breakfast. He denies chest pain and shortness of breath. Speech is garbled. He is a very poor historian today. <Nevin Menendez 09/01/18 09:05> [facility] History Medical History: Reports:: Arrhythmia, Atrial Fibrillation, Cerebrovascular Accident, Diabetes Mellitus Type 2, Gastroesophageal Reflux Disease(GERD), Hyperlipidemia, Hypertension, Peripheral Vascular Disease Denies:: Atherosclerotic Heart Disease, Cancer, Diabetes Mellitus Type 1, MRSA <Nevin Menendez 09/01/18 08:16> Other Medical History: Reports: Arthritis, Cataracts, Sinus Problems, Thyroid Disease <Nevin Menendez 09/01/18 08:16> Other Surgeries: Yes: Other (Left femoral bypass, Right eye skin cancer, Rt eye implant) <Nevin Menendez 09/01/18 08:16> Amputation: No <Nevin Menendez 09/01/18 08:16> - *Social History Smoking Status: Former smoker <Nevin Menendez 09/01/18 08:16> Tobacco Type: cigarettes <Nevin Menendez 09/01/18 08:16> # Packs/Day (cigarettes): 1 <Nevin Menendez 09/01/18 08:16> #Yrs smoked (if former smoker): 50 <Nevin Menendez 09/01/18 08:16> Alcohol Intake: former <Nevin Menendez 09/01/18 08:16> Alcohol Intake Frequency:: other <Nevin Menendez 09/01/18 08:16> Occupational Status: retired <Nevin Menendez 09/01/18 08:16> Housing: prison <Nevin Menendez 09/01/18 08:16> Household Members: other <MenendezNevin 09/01/18 08:16> - Psychiatric History Expresses thoughts of harming self/others: None <MenendezNevin 09/01/18 08:16> Suicide Plan Description: No Plan <Nevin Menendez 09/01/18 08:16> *Family Hx:: Asthma, Coronary Artery Disease, Hypertension <Menendez,Nevin 09/01/18 08:16> Review of Systems - Constitutional Reports lack of energy, Reports malaise, Reports weakness <MenendezNevin 09/01/18 08:27> - *Cardiovascular Reports shortness of breath, Denies chest pain, Denies leg swelling <MenendezNevin - 09/01/18 08:27> - *Respiratory Reports shortness of breath, Denies chest congestion, Denies cough <Menendez,Nevin - 09/01/18 08:27> - *Gastrointestinal Denies abdominal pain, Denies change in bowel habits, Denies constipation, Denies heartburn <MenendezNevin - 09/01/18 08:27> - *Genitourinary Comments: Urinary incontinence. Frequent urinary tract infections <Menendez,Nevin - 09/01/18 08:27> - *Musculoskeletal Reports joint pain, Reports decreased muscle mass, Reports muscle weakness <MenendezNevin - 09/01/18 08:27> - *Neurologic Reports confusion, Reports weakness, Denies abnormal speech, Denies localized weakness <Menendez,Nevin - 09/01/18 08:16> Meds Home Medications Medication Instructions Recorded Confirmed Type Cholecalciferol (Vitamin D3) 2,000 unit PO DAILY 10/26/17 08/31/18 History [Vitamin D3] Loperamide HCl [Imodium 2 mg 2 mg PO Q4HP PRN 10/26/17 08/31/18 History capsule] Apixaban [Eliquis] 2.5 mg PO BID 11/12/17 08/31/18 History Acetaminophen 500 mg PO Q6HP PRN 11/13/17 08/31/18 History Ibuprofen [Ibuprofen Ib] 400 mg PO Q8HP PRN 11/13/17 08/31/18 History Multivitamin [One Daily] 1 tab PO DAILY 11/13/17 08/31/18 History Ascorbic Acid 500 mg PO BID 08/19/18 08/31/18 History Chlorpheniramine/Dextromethorp 5 ml PO Q4HP PRN 08/19/18 08/31/18 History [Robitussin Long-Acting Liq] Mag Carb/Aluminum Hydrox/Algin 15 ml PO Q4HP PRN 08/19/18 08/31/18 History [Gaviscon Liquid] Ondansetron HCl [Ondansetron 4mg 4 mg PO Q6HP PRN 08/19/18 08/31/18 History Tablet] Aspirin 81 mg PO DAILY 08/31/18 08/31/18 History Bisoprolol Fumarate [Zebeta 5mg 5 mg PO BID 08/31/18 08/31/18 History tablet] Levothyroxine Sodium [Synthroid 150 mcg PO DAILYDM 08/31/18 08/31/18 History 150mcg (0.15mg) tablet] Potassium Chloride [Klor-Con 10mEq 10 meq PO BID 08/31/18 08/31/18 History tab] Verapamil HCl [Verapamil Sr] 120 mg PO BID 08/31/18 08/31/18 History Sertraline HCl [Zoloft 50mg tablet] 50 mg PO HS 09/01/18 09/01/18 History <Thomas Garcia - 09/01/18 09:58> Allergies Allergy/AdvReac Type Severity Reaction Status Date / Time atorvastatin [From Lipitor] Allergy Verified 08/18/18 21:42 <Thomas Garcia - 09/01/18 09:58> Exam Vital signs and Labs for Last 24 Hours: Temp Pulse Resp BP Pulse Ox 97.9 F 91 H 18 100/73 L 93 L 09/01/18 07:33 09/01/18 07:33 09/01/18 07:33 09/01/18 07:33 09/01/18 07:33 Laboratory Results - last 24 hr 08/31/18 22:40: WBC 10.3, RBC 3.14 L, Hgb 10.0 L, Hct 32.0 L, MCV 102.0 H, MCH 31.8 H, MCHC 31.2 L, RDW 15.5, Plt Count 221, MPV 7.1 L, Neut % (Auto) 85.3 H, Lymph % (Auto) 9.9 L, Trigg % (Auto) 4.1, Eos % (Auto) 0.2, Baso % (Auto) 0.5, Neut # (Auto) 8.8 H, Lymph # (Auto) 1.0, Trigg # (Auto) 0.4, Eos # (Auto) 0.0, Baso # (Auto) 0.1, Total Counted 100, Neutrophils % (Manual) 92 H, Lymphocytes % (Manual) 6 L, Monocytes % (Manual) 2, Platelet Estimate Normal, RBC Morphology Not Reportable, Anisocytosis 1+, Ovalocytes 1+, Stomatocytes 1+ 08/31/18 22:40: Sodium 139, Potassium 4.6, Chloride 104, Carbon Dioxide 29, Anion Gap 10.6, BUN 24 H, Creatinine 1.69 H, Estimated Creat Clear 32, Estimated GFR 38 L, Est GFR ( Amer) 47 L, Glucose 97, Calcium 11.9 H, Total Bilirubin 0.5, AST 11 L, ALT 10 L, Alkaline Phosphatase 111, Total Protein 6.0 L , Albumin 1.9 L, Globulin 4.1 H, Albumin/Globulin Ratio 0.5 L 08/31/18 22:40: Lactate 2.4 H 08/31/18 23:40: Urine Color Yellow, Urine Appearance Clear, Urine pH 5.0, Ur Specific [place] >= 1.030, Urine Protein Negative, Urine Glucose (UA) Negative, Urine Ketones Negative, Urine Blood Negative, Urine Nitrate Negative, Urine Bilirubin Negative, Urine Urobilinogen 0.2, Ur Leukocyte Esterase Negative, Urine RBC 3-5, Urine WBC 3-5, Ur Squamous Epith Cells Occasional, Urine Bacteria 1+, Hyaline Casts 3-5 09/01/18 02:30: Lactate 2.1 H 09/01/18 04:15: Troponin I 0.13 H 09/01/18 04:15: Lactate 1.7 09/01/18 05:58: WBC 7.1 D, RBC 2.78 L, Hgb 8.7 L D, Hct 28.3 L, MCV 101.8 H, MCH 31.5 H, MCHC 30.9 L, RDW 15.4, Plt Count 174, MPV 6.9 L, Neut % (Auto) 84.1 H, Lymph % (Auto) 10.8, Trigg % (Auto) 4.3, Eos % (Auto) 0.2, Baso % (Auto) 0.6, Neut # (Auto) 6.0, Lymph # (Auto) 0.8, Trigg # (Auto) 0.3, Eos # (Auto) 0.0, Baso # (Auto) 0.0 09/01/18 05:58: Sodium 140, Potassium 4.6, Chloride 106, Carbon Dioxide 29, Anion Gap 9.6, BUN 24 H, Creatinine 1.66 H, Estimated Creat Clear 36, Estimated GFR 39 L, Est GFR ( Amer) 48 L, Glucose 89, Calcium 12.3 H*, Magnesium 1.6, Troponin I 0.12 H 09/01/18 07:38: POC Glucose 83 <Thomas Garcia - 09/01/18 09:58> Temp Pulse Resp BP Pulse Ox 97.9 F 91 H 18 100/73 L 93 L 09/01/18 07:33 09/01/18 07:33 09/01/18 07:33 09/01/18 07:33 09/01/18 07:33 Laboratory Results - last 24 hr 08/31/18 22:40: WBC 10.3, RBC 3.14 L, Hgb 10.0 L, Hct 32.0 L, MCV 102.0 H, MCH 31.8 H, MCHC 31.2 L, RDW 15.5, Plt Count 221, MPV 7.1 L, Neut % (Auto) 85.3 H, Lymph % (Auto) 9.9 L, Trigg % (Auto) 4.1, Eos % (Auto) 0.2, Baso % (Auto) 0.5, Neut # (Auto) 8.8 H, Lymph # (Auto) 1.0, Trigg # (Auto) 0.4, Eos # (Auto) 0.0, Baso # (Auto) 0.1, Total Counted 100, Neutrophils % (Manual) 92 H, Lymphocytes % (Manual) 6 L, Monocytes % (Manual) 2, Platelet Estimate Normal, RBC Morphology Not Reportable, Anisocytosis 1+, Ovalocytes 1+, Stomatocytes 1+ 08/31/18 22:40: Sodium 139, Potassium 4.6, Chloride 104, Carbon Dioxide 29, Anion Gap 10.6, BUN 24 H, Creatinine 1.69 H, Estimated Creat Clear 32, Estimated GFR 38 L, Est GFR ( Amer) 47 L, Glucose 97, Calcium 11.9 H, Total Bilirubin 0.5, AST 11 L, ALT 10 L, Alkaline Phosphatase 111, Total Protein 6.0 L , Albumin 1.9 L, Globulin 4.1 H, Albumin/Globulin Ratio 0.5 L 08/31/18 22:40: Lactate 2.4 H 08/31/18 23:40: Urine Color Yellow, Urine Appearance Clear, Urine pH 5.0, Ur Specific [place] >= 1.030, Urine Protein Negative, Urine Glucose (UA) Negative, Urine Ketones Negative, Urine Blood Negative, Urine Nitrate Negative, Urine Bilirubin Negative, Urine Urobilinogen 0.2, Ur Leukocyte Esterase Negative, Uri ne RBC 3-5, Urine WBC 3-5, Ur Squamous Epith Cells Occasional, Urine Bacteria 1+, Hyaline Casts 3-5 09/01/18 02:30: Lactate 2.1 H 09/01/18 04:15: Troponin I 0.13 H 09/01/18 04:15: Lactate 1.7 09/01/18 05:58: WBC 7.1 D, RBC 2.78 L, Hgb 8.7 L D, Hct 28.3 L, MCV 101.8 H, MCH 31.5 H, MCHC 30.9 L, RDW 15.4, Plt Count 174, MPV 6.9 L, Neut % (Auto) 84.1 H, Lymph % (Auto) 10.8, Trigg % (Auto) 4.3, Eos % (Auto) 0.2, Baso % (Auto) 0.6, Neut # (Auto) 6.0, Lymph # (Auto) 0.8, Trigg # (Auto) 0.3, Eos # (Auto) 0.0, Baso # (Auto) 0.0 09/01/18 05:58: Sodium 140, Potassium 4.6, Chloride 106, Carbon Dioxide 29, Anion Gap 9.6, BUN 24 H, Creatinine 1.66 H, Estimated Creat Clear 36, Estimated GFR 39 L, Est GFR ( Amer) 48 L, Glucose 89, Calcium 12.3 H*, Magnesium 1.6, Troponin I 0.12 H 09/01/18 07:38: POC Glucose 83 <Nevin Menendez - 09/01/18 08:16> I & O for Last 24 hours: Intake & Output 08/29/18 08/30/18 08/31/18 09/01/18 11:59 11:59 11:59 11:59 Intake Total 120 / 120 Balance 120 / 120 Weight 182 lb 1 oz <Thomas Garcia - 09/01/18 09:58> Intake & Output 08/29/18 08/30/18 08/31/18 09/01/18 11:59 11:59 11:59 11:59 Weight 182 lb 1 oz <Nevin Menendez 09/01/18 08:16> - Constitutional no acute distress <Nevin Menendez 09/01/18 08:27> Comments: Sitting upright in the bed being fed his breakfast <Nevin Menendez 09/01/18 08:27> - *Routine HEENT Exam Head: Present: normocephalic, atraumatic <Nevin Menendez 09/01/18 08:27> Eye: Present: PERRL <Nevin Menendez 09/01/18 08:27> - *Routine Respiratory Exam Comments: Few bibasilar crackles posteriorly <Nevin Menendez 09/01/18 08:27> - *Routine Cardiovascular Exam Present: irregular rhythm <Nevin Menendez 09/01/18 08:27> - *Routine Abdominal Exam Present: soft, normoactive bowel sounds. Absent: tenderness, distended <Nevin Menendez 09/01/18 08:27> - *Routine Extremities Exam Absent: edema, calf tenderness <Nevin Menendez 09/01/18 08:27> - *Routine Neurological Exam Present: alert (Ms. Valderrama I looked in there and it was all the way I dictated yesterday think it might of been the cardiology printed out at [facility] was) <Nevin Menendez 09/01/18 08:27> Assessment and Plan (1) Altered mental status Current visit: Yes Status: Acute Qualifiers: Altered mental status type: unspecified Qualified Code(s): R41.82 - Altered mental status, unspecified Category: Medical Code(s): R41.82 - Altered mental status, unspecified (2) Dehydration Current visit: Yes Status: Acute Category: Medical Code(s): E86.0 - Dehydration (3) Anemia Current visit: Yes Status: Chronic Qualifiers: Anemia type: unspecified type Qualified Code(s): D64.9 - Anemia, unspecified Category: Medical Code(s): D64.9 - Anemia, unspecified (4) Cellulitis Current visit: Yes Status: Acute Qualifiers: Site of cellulitis: trunk Site of cellulitis of trunk: back Qualified Code(s): L03.312 - Cellulitis of back [any part except buttock] Category: Medical Code(s): L03.90 - Cellulitis, unspecified (5) Hypercalcemia Current visit: Yes Status: Acute Category: Medical Code(s): E83.52 - Hypercalcemia (6) Renal insufficiency Current visit: Yes Status: Chronic Category: Medical Code(s): N28.9 - Disorder of kidney and ureter, unspecified (7) Type 2 diabetes mellitus Current visit: Yes Status: Chronic Qualifiers: Diabetes mellitus 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 Diabetes mellitus complication status: with unspecified complications Qualified Code(s): E11.8 - Type 2 diabetes mellitus with unspecified complications; Z79.4 - jail (current) use of insulin Category: Medical Code(s): E11.9 - Type 2 diabetes mellitus without complications (8) Chronic atrial fibrillation Current visit: Yes Status: Chronic Category: Medical Code(s): I48.2 - Chronic atrial fibrillation (9) Debility Current visit: No Status: Chronic Category: Medical Code(s): R53.81 - Other malaise (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 Current visit: No Status: Chronic Category: Medical Code(s): M15.9 - Polyosteoarthritis, unspecified (11) Generalized weakness Current visit: No Status: Chronic Category: Medical Code(s): R53.1 - Weakness (12) Gout Current visit: No Status: Chronic Category: Medical Code(s): M10.9 - Gout, unspecified (13) History of CVA (cerebrovascular accident) Current visit: No Status: Chronic Category: Medical Code(s): Z86.73 - Personal history of transient ischemic attack (TIA), and cerebral infarction without residual deficits (14) Depression Current visit: No Status: Chronic Category: Medical Code(s): F32.9 - Major depressive disorder, single episode, unspecified (15) Hypothyroidism Current visit: No Status: Chronic Qualifiers: Hypothyroidism type: unspecified Qualified Code(s): E03.9 - Hypothyroidism, unspecified Category: Medical Code(s): E03.9 - Hypothyroidism, unspecified <Thomas aGrcia - 09/01/18 09:58> (1) Altered mental status Current visit: Yes Status: Acute Qualifiers: Altered mental status type: unspecified Qualified Code(s): R41.82 - Altered mental status, unspecified Category: Medical Code(s): R41.82 - Altered mental status, unspecified (2) Anemia Current visit: Yes Status: Chronic Qualifiers: Anemia type: unspecified type Qualified Code(s): D64.9 - Anemia, unspecified Category: Medical Code(s): D64.9 - Anemia, unspecified (3) Cellulitis Current visit: Yes Status: Acute Qualifiers: Site of cellulitis: trunk Site of cellulitis of trunk: back Qualified Code(s): L03.312 - Cellulitis of back [any part except buttock] Category: Medical Code(s): L03.90 - Cellulitis, unspecified (4) Hypercalcemia Current visit: Yes Status: Acute Category: Medical Code(s): E83.52 - Hypercalcemia (5) Renal insufficiency Current visit: Yes Status: Chronic Category: Medical Code(s): N28.9 - Disorder of kidney and ureter, unspecified (6) Type 2 diabetes mellitus Current visit: Yes Status: Chronic Qualifiers: Diabetes mellitus terminal worker insulin use: with retirement use Diabetes mellitus complication status: with unspecified complications Qualified Code(s): E11.8 - Type 2 diabetes mellitus with unspecified complications; 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 Category: Medical Code(s): E11.9 - Type 2 diabetes mellitus without complications (7) Chronic atrial fibrillation Current visit: Yes Status: Chronic Category: Medical Code(s): I48.2 - Chronic atrial fibrillation (8) Debility Current visit: No Status: Chronic Category: Medical Code(s): R53.81 - Other malaise (9) Generalized osteoarthritis Current visit: No Status: Chronic Category: Medical Code(s): M15.9 - Polyosteoarthritis, unspecified (10) Generalized weakness Current visit: No Status: Chronic Category: Medical Code(s): R53.1 - Weakness (11) Gout Current visit: No Status: Chronic Category: Medical Code(s): M10.9 - Gout, unspecified (12) History of CVA (cerebrovascular accident) Current visit: No Status: Chronic Category: Medical Code(s): Z86.73 - Personal history of transient ischemic attack (TIA), and cerebral infarction without residual deficits (13) Depression Current visit: No Status: Chronic Category: Medical Code(s): F32.9 - Major depressive disorder, single episode, unspecified (14) Hypothyroidism Current visit: No Status: Chronic Qualifiers: Hypothyroidism type: unspecified Qualified Code(s): E03.9 - Hypothyroidism, unspecified Category: Medical Code(s): E03.9 - Hypothyroidism, unspecified <Nevin Menendez - 09/01/18 09:08> - Assessment and plan all Dx Assessment and Plan for all problems:: Patient seen and examined. Concur with above with exception that his head CT was done on admission last week and not repeated last night. Etiology of his AMS is not clear and may be multifactorial. There is no apparent infection other than the wound on his shoulder. My concern is that he could possibly have had another stroke. If his renal function improves with hydration, then will check head CT with contrast. The hypercalcemia is new and could account for his lethargy and AMS. Will proceed with additional workup with malignancy being a concern. <Thomas Garcia - 09/01/18 09:58> Gentle hydration. With improvement of renal function may be able to have repeat CT of head with contrast. Will monitor calcium for now. <Nevin Menendez - 09/01/18 09:05>
[2018-09-02 07:23] LABS: Basophils # 0.1 K/mm3 (0-0.2); Basophils % 0.9 % (0.1-2.0); Eosinophils % 0.2 % (0.1-12.0); Hematocrit 27.3 % (42.0-52.0); Hemoglobin 8.7 g/dL (14.1-18.0); Lymphocytes # 0.9 K/mm3 (0.7-4.5); Lymphocytes % 11.8 % (10-50); Mean Corpuscular HGB Conc 31.8 g/dL (31.8-35.4); Mean Corpuscular Hemoglobin 32.5 pg (27.0-31.2); Mean Corpuscular Volume 102.4 fl (80-94); Mean Platelet Volume 7.3 fl (7.4-10.4); Monocytes # 0.4 K/mm3 (0.1-1.0); Monocytes % 5.5 % (1.7-9.3); Neutrophils # 6.2 K/mm3 (1.8-7.8); Neutrophils % 81.7 % (37.0-80.0); Platelet Count 172 K/mm3 (142-424); Red Blood Count 2.66 M/mm3 (4.60-6.20); Red Cell Distribution Width 15.6 % (11.5-17.5); White Blood Count 7.6 K/mm3 (4.8-10.8)
[2018-09-02 07:51] LABS: Albumin Level 1.8 gm/dL (3.4-5.0); Albumin/Globulin Ratio 0.5 (1.1-1.8); Bilirubin,Total 0.5 mg/dL (0.2-1.0); Calcium 11.5 mg/dL (8.5-10.1); Globulin 3.9 gm/dl (1.3-3.2); Total Protein,Serum 5.7 gm/dL (6.4-8.2)
--- NOTE | 2018-09-02 08:17 | Progress Note ---
<Brittany Alan - Last Filed: 09/02/18 08:13> Internal Medicine - PN: Subj *Date: 09/02/18 *Time: 08:13 Interval history: Patient is more alert and oriented this morning. He does answer questions appropriately. He denies any pain. He does state he is slightly more short of breath than normal. States he slept well last night and ate some breakfast this morning. Nursing commented that he may need a swallowing evaluation due to some coughing while eating. Exam Vital signs and Labs for Last 24 Hours: Temp Pulse Resp BP Pulse Ox 98.8 F 93 H 16 120/59 L 96 09/02/18 04:00 09/02/18 04:00 09/02/18 04:00 09/02/18 04:00 09/02/18 04:00 Laboratory Results - last 24 hr 09/01/18 10:10: Phosphorus 4.8 09/01/18 11:57: POC Glucose 88 09/01/18 17:02: POC Glucose 79 09/01/18 20:38: POC Glucose 92 09/02/18 06:07: POC Glucose 85 09/02/18 07:02: WBC 7.6, RBC 2.66 L, Hgb 8.7 L, Hct 27.3 L, MCV 102.4 H, MCH 32.5 H, MCHC 31.8, RDW 15.6, Plt Count 172, MPV 7.3 L, Neut % (Auto) 81.7 H, Lymph % (Auto) 11.8, [place] % (Auto) 5.5, Eos % (Auto) 0.2, Baso % (Auto) 0.9, Neut # (Auto) 6.2, Lymph # (Auto) 0.9, [place] # (Auto) 0.4, Eos # (Auto) 0.0, Baso # (Auto) 0.1 09/02/18 07:02: Sodium 141, Potassium 4.0, Chloride 108 H, Carbon Dioxide 28, Anion Gap 9.0, BUN 21 H, Creatinine 1.47 H, Estimated Creat Clear 41, Estimated GFR 45 L, Est GFR ( Amer) 55 L, Glucose 86, Calcium 11.5 H, Total Bilirubin 0.5, AST 8 L D, ALT 10 L, Alkaline Phosphatase 92, Total Protein 5.7 L , Albumin 1.8 L, Globulin 3.9 H, Albumin/Globulin Ratio 0.5 L I & O for Last 24 hours: Intake & Output 08/30/18 08/31/18 09/01/18 09/02/18 11:59 11:59 11:59 11:59 Intake Total 120 / 120 896 / 896 Balance 120 / 120 896 / 896 Weight 182 lb 1 oz 185 lb 5 oz Microbiology Reports for the Last 24 Hours: Microbiology 09/01/18 00:15 Shoulder,Left - Wound Gram Stain - Final 09/01/18 00:15 Shoulder,Left - Wound Wound Culture - Preliminary NO GROWTH AFTER 24 HOURS - Constitutional no acute distress Comments: more alert - *Routine Respiratory Exam Present: rales (basilar) - *Routine Cardiovascular Exam Present: irregular rhythm - *Routine Abdominal Exam Present: soft, normoactive bowel sounds. Absent: tenderness - *Routine Extremities Exam Present: edema. Absent: cyanosis, clubbing Assessment and Plan (1) Altered mental status Current visit: Yes Status: Acute Qualifiers: Altered mental status type: unspecified Qualified Code(s): R41.82 - Altered mental status, unspecified Category: Medical Code(s): R41.82 - Altered mental status, unspecified (2) Dehydration Current visit: Yes Status: Acute Category: Medical Code(s): E86.0 - Dehydration (3) Anemia Current visit: Yes Status: Chronic Qualifiers: Anemia type: unspecified type Qualified Code(s): D64.9 - Anemia, unspecified Category: Medical Code(s): D64.9 - Anemia, unspecified (4) Cellulitis Current visit: Yes Status: Acute Qualifiers: Site of cellulitis: trunk Site of cellulitis of trunk: back Qualified Code(s): L03.312 - Cellulitis of back [any part except buttock] Category: Medical Code(s): L03.90 - Cellulitis, unspecified (5) Hypercalcemia Current visit: Yes Status: Acute Category: Medical Code(s): E83.52 - Hypercalcemia (6) Renal insufficiency Current visit: Yes Status: Chronic Category: Medical Code(s): N28.9 - Disorder of kidney and ureter, unspecified (7) Type 2 diabetes mellitus Current visit: Yes Status: Chronic Qualifiers: Diabetes mellitus [facility] insulin use: with [facility] use Diabetes mellitus complication status: with unspecified complications Qualified Code(s): E11.8 - Type 2 diabetes mellitus with unspecified complications; Z79.4 - trial court judge (current) use of insulin Category: Medical Code(s): E11.9 - Type 2 diabetes mellitus without complications (8) Chronic atrial fibrillation Current visit: Yes Status: Chronic Category: Medical Code(s): I48.2 - Chronic atrial fibrillation (9) Debility Current visit: No Status: Chronic Category: Medical Code(s): R53.81 - Other malaise (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 Current visit: No Status: Chronic Category: Medical Code(s): M15.9 - Polyosteoarthritis, unspecified (11) Generalized weakness Current visit: No Status: Chronic Category: Medical Code(s): R53.1 - Weakness (12) Gout Current visit: No Status: Chronic Category: Medical Code(s): M10.9 - Gout, unspecified (13) History of CVA (cerebrovascular accident) Current visit: No Status: Chronic Category: Medical Code(s): Z86.73 - Personal history of transient ischemic attack (TIA), and cerebral infarction without residual deficits (14) Depression Current visit: No Status: Chronic Category: Medical Code(s): F32.9 - Major depressive disorder, single episode, unspecified (15) Hypothyroidism Current visit: No Status: Chronic Qualifiers: Hypothyroidism type: unspecified Qualified Code(s): E03.9 - Hypothyroidism, unspecified Category: Medical Code(s): E03.9 - Hypothyroidism, unspecified - Assessment and plan all Dx Assessment and Plan for all problems:: Patient is slowly improving. His calcium is decreasing. We will try to get a CT of the head with contrast today. We will also get a swallowing evaluation. <Thomas Garcia - Last Filed: 09/02/18 08:27> Exam Vital signs and Labs for Last 24 Hours: Temp Pulse Resp BP Pulse Ox 97.8 F 109 H 24 106/52 L 94 L 09/02/18 08:00 09/02/18 08:00 09/02/18 08:00 09/02/18 08:00 09/02/18 08:00 Laboratory Results - last 24 hr 09/01/18 10:10: Phosphorus 4.8 09/01/18 11:57: POC Glucose 88 09/01/18 17:02: POC Glucose 79 09/01/18 20:38: POC Glucose 92 09/02/18 06:07: POC Glucose 85 09/02/18 07:02: WBC 7.6, RBC 2.66 L, Hgb 8.7 L, Hct 27.3 L, MCV 102.4 H, MCH 32.5 H, MCHC 31.8, RDW 15.6, Plt Count 172, MPV 7.3 L, Neut % (Auto) 81.7 H, Lymph % (Auto) 11.8, [place] % (Auto) 5.5, Eos % (Auto) 0.2, Baso % (Auto) 0.9, Neut # (Auto) 6.2, Lymph # (Auto) 0.9, [place] # (Auto) 0.4, Eos # (Auto) 0.0, Baso # (Auto) 0.1 09/02/18 07:02: Sodium 141, Potassium 4.0, Chloride 108 H, Carbon Dioxide 28, Anion Gap 9.0, BUN 21 H, Creatinine 1.47 H, Estimated Creat Clear 41, Estimated GFR 45 L, Est GFR ( Amer) 55 L, Glucose 86, Calcium 11.5 H, Total Bilirubin 0.5, AST 8 L D, ALT 10 L, Alkaline Phosphatase 92, Total Protein 5.7 L , Albumin 1.8 L, Globulin 3.9 H, Albumin/Globulin Ratio 0.5 L I & O for Last 24 hours: Intake & Output 08/30/18 08/31/18 09/01/18 09/02/18 11:59 11:59 11:59 11:59 Intake Total 120 / 120 896 / 896 Balance 120 / 120 896 / 896 Weight 182 lb 1 oz 185 lb 5 oz Microbiology Reports for the Last 24 Hours: Microbiology 09/01/18 00:15 Shoulder,Left - Wound Gram Stain - Final 09/01/18 00:15 Shoulder,Left - Wound Wound Culture - Preliminary NO GROWTH AFTER 24 HOURS Assessment and Plan (1) Altered mental status Current visit: Yes Status: Acute Qualifiers: Altered mental status type: unspecified Qualified Code(s): R41.82 - Altered mental status, unspecified Category: Medical Code(s): R41.82 - Altered mental status, unspecified (2) Dehydration Current visit: Yes Status: Acute Category: Medical Code(s): E86.0 - Dehydration (3) Anemia Current visit: Yes Status: Chronic Qualifiers: Anemia type: unspecified type Qualified Code(s): D64.9 - Anemia, unspecified Category: Medical Code(s): D64.9 - Anemia, unspecified (4) Cellulitis Current visit: Yes Status: Acute Qualifiers: Site of cellulitis: trunk Site of cellulitis of trunk: back Qualified Code(s): L03.312 - Cellulitis of back [any part except buttock] Category: Medical Code(s): L03.90 - Cellulitis, unspecified (5) Hypercalcemia Current visit: Yes Status: Acute Category: Medical Code(s): E83.52 - Hypercalcemia (6) Renal insufficiency Current visit: Yes Status: Chronic Category: Medical Code(s): N28.9 - Disorder of kidney and ureter, unspecified (7) Type 2 diabetes mellitus Current visit: Yes Status: Chronic Qualifiers: Diabetes mellitus [employer] [employer] insulin use: with [facility] Diabetes mellitus complication status: with unspecified complications Qualified Code(s): E11.8 - Type 2 diabetes mellitus with unspecified complications; Z79.4 - assisted (current) use of insulin Category: Medical Code(s): E11.9 - Type 2 diabetes mellitus without complications (8) Chronic atrial fibrillation Current visit: Yes Status: Chronic Category: Medical Code(s): I48.2 - Chronic atrial fibrillation (9) Debility Current visit: No Status: Chronic Category: Medical Code(s): R53.81 - Oth er malaise (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 Current visit: No Status: Chronic Category: Medical Code(s): M15.9 - Polyosteoarthritis, unspecified (11) Generalized weakness Current visit: No Status: Chronic Category: Medical Code(s): R53.1 - Weakness (12) Gout Current visit: No Status: Chronic Category: Medical Code(s): M10.9 - Gout, unspecified (13) History of CVA (cerebrovascular accident) Current visit: No Status: Chronic Category: Medical Code(s): Z86.73 - Personal history of transient ischemic attack (TIA), and cerebral infarction without residual deficits (14) Depression Current visit: No Status: Chronic Category: Medical Code(s): F32.9 - Major depressive disorder, single episode, unspecified (15) Hypothyroidism Current visit: No Status: Chronic Qualifiers: Hypothyroidism type: unspecified Qualified Code(s): E03.9 - Hypothyroidism, unspecified Category: Medical Code(s): E03.9 - Hypothyroidism, unspecified - Assessment and plan all Dx Assessment and Plan for all problems:: Patient seen and examined. Concur with assessment and plan as outlined. Calcium improved with hydration. Awaiting labs.
[2018-09-03 07:13] LABS: Basophils % 0.5 % (0.1-2.0); Eosinophils % 0.3 % (0.1-12.0); Hematocrit 27.5 % (42.0-52.0); Hemoglobin 8.4 g/dL (14.1-18.0); Lymphocytes # 0.9 K/mm3 (0.7-4.5); Lymphocytes % 15.1 % (10-50); Mean Corpuscular HGB Conc 30.6 g/dL (31.8-35.4); Mean Corpuscular Volume 104.7 fl (80-94); Mean Platelet Volume 7.2 fl (7.4-10.4); Monocytes # 0.3 K/mm3 (0.1-1.0); Neutrophils # 4.6 K/mm3 (1.8-7.8); Neutrophils % 79.1 % (37.0-80.0); Platelet Count 161 K/mm3 (142-424); Red Blood Count 2.63 M/mm3 (4.60-6.20); Red Cell Distribution Width 15.7 % (11.5-17.5); White Blood Count 5.9 K/mm3 (4.8-10.8)
[2018-09-03 07:18] LABS: Calcium 11.4 mg/dL (8.5-10.1)
--- NOTE | 2018-09-03 08:17 | Progress Note ---
<Brittany Alan - Last Filed: 09/03/18 08:13> Internal Medicine - PN: Subj *Date: 09/03/18 *Time: 08:13 Interval history: Patient was down getting his head CT this morning. When he arrived back from head CT, he was slightly confused. His speech was garbled. He did say that his head hurt. He states he slept last night and is not very hungry this morning. Exam Vital signs and Labs for Last 24 Hours: Temp Pulse Resp BP Pulse Ox 97.0 F L 72 17 145/82 H 99 09/03/18 08:00 09/03/18 08:00 09/03/18 08:00 09/03/18 08:00 09/03/18 08:00 Laboratory Results - last 24 hr 09/02/18 11:36: POC Glucose 98 09/02/18 16:51: POC Glucose 88 09/02/18 19:51: POC Glucose 103 09/03/18 06:19: POC Glucose 76 09/03/18 06:51: WBC 5.9, RBC 2.63 L, Hgb 8.4 L, Hct 27.5 L, MCV 104.7 H, MCH 32.0 H, MCHC 30.6 L, RDW 15.7, Plt Count 161, MPV 7.2 L, Neut % (Auto) 79.1, Lymph % (Auto) 15.1, [place] % (Auto) 5.0, Eos % (Auto) 0.3, Baso % (Auto) 0.5, Neut # (Auto) 4.6, Lymph # (Auto) 0.9, [place] # (Auto) 0.3, Eos # (Auto) 0.0, Baso # (Auto) 0.0 09/03/18 06:51: Sodium 142, Potassium 4.0, Chloride 109 H, Carbon Dioxide 29, Anion Gap 8.0, BUN 21 H, Creatinine 1.42 H, Estimated Creat Clear 43, Estimated GFR 47 L, Est GFR ( Amer) 57 L, Glucose 89, Calcium 11.4 H I & O for Last 24 hours: Intake & Output 08/31/18 09/01/18 09/02/18 09/03/18 11:59 11:59 11:59 11:59 Intake Total 120 / 120 1256 / 1256 3067 / 3067 Balance 120 / 120 1256 / 1256 306 / 3067 Weight 182 lb 1 oz 185 lb 5 oz Microbiology Reports for the Last 24 Hours: Microbiology 08/31/18 22:40 Blood Blood Culture - Preliminary NO GROWTH AFTER 48 HOURS 08/31/18 22:40 Blood Blood Culture - Preliminary NO GROWTH AFTER 48 HOURS 09/01/18 00:15 Shoulder,Left - Wound Gram Stain - Final 09/01/18 00:15 Shoulder,Left - Wound Wound Culture - Preliminary - Constitutional no acute distress - *Routine Respiratory Exam Present: rales (basilar) - *Routine Cardiovascular Exam Present: irregular rhythm - *Routine Abdominal Exam Present: soft, normoactive bowel sounds. Absent: tenderness - *Routine Extremities Exam Absent: cyanosis, clubbing, edema - *Routine Neurological Exam Speech is garbled today. He is more confused. Assessment and Plan (1) Altered mental status Current visit: Yes Status: Acute Qualifiers: Altered mental status type: unspecified Qualified Code(s): R41.82 - Altered mental status, unspecified Category: Medical Code(s): R41.82 - Altered mental status, unspecified (2) Dehydration Current visit: Yes Status: Acute Category: Medical Code(s): E86.0 - Dehydration (3) Anemia Current visit: Yes Status: Chronic Qualifiers: Anemia type: unspecified type Qualified Code(s): D64.9 - Anemia, unspecified Category: Medical Code(s): D64.9 - Anemia, unspecified (4) Cellulitis Current visit: Yes Status: Acute Qualifiers: Site of cellulitis: trunk Site of cellulitis of trunk: back Qualified Code(s): L03.312 - Cellulitis of back [any part except buttock] Category: Medical Code(s): L03.90 - Cellulitis, unspecified (5) Hypercalcemia Current visit: Yes Status: Acute Category: Medical Code(s): E83.52 - Hypercalcemia (6) Renal insufficiency Current visit: Yes Status: Chronic Category: Medical Code(s): N28.9 - Disorder of kidney and ureter, unspecified (7) Type 2 diabetes mellitus Current visit: Yes Status: Chronic Qualifiers: Diabetes mellitus terminal make up operator insulin use: with terminal make up operator use Diabetes mellitus complication status: with unspecified complications Qualified Code(s): E11.8 - Type 2 diabetes mellitus with unspecified complications; Z79.4 - terminal make up operator (current) use of insulin Category: Medical Code(s): E11.9 - Type 2 diabetes mellitus without co mplications (8) Chronic atrial fibrillation Current visit: Yes Status: Chronic Category: Medical Code(s): I48.2 - Chronic atrial fibrillation (9) Debility Current visit: No Status: Chronic Category: Medical Code(s): R53.81 - Other malaise (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 Current visit: No Status: Chronic Category: Medical Code(s): M15.9 - Polyosteoarthritis, unspecified (11) Generalized weakness Current visit: No Status: Chronic Category: Medical Code(s): R53.1 - Weakness (12) Gout Current visit: No Status: Chronic Category: Medical Code(s): M10.9 - Gout, unspecified (13) History of CVA (cerebrovascular accident) Current visit: No Status: Chronic Category: Medical Code(s): Z86.73 - Personal history of transient ischemic attack (TIA), and cerebral infarction without residual deficits (14) Depression Current visit: No Status: Chronic Category: Medical Code(s): F32.9 - Major depressive disorder, single episode, unspecified (15) Hypothyroidism Current visit: No Status: Chronic Qualifiers: Hypothyroidism type: unspecified Qualified Code(s): E03.9 - Hypothyroidism, unspecified Category: Medical Code(s): E03.9 - Hypothyroidism, unspecified - Assessment and plan all Dx Assessment and Plan for all problems:: Will await head CT results today. Pt had swallowing evaluation and speech therapy recommends mechanical soft with ground meats and nectar thick liquids. <Thomas Garcia - Last Filed: 09/03/18 08:47> Exam Vital signs and Labs for Last 24 Hours: Temp Pulse Resp BP Pulse Ox 97.0 F L 72 17 145/82 H 99 09/03/18 08:00 09/03/18 08:00 09/03/18 08:00 09/03/18 08:00 09/03/18 08:00 Laboratory Results - last 24 hr 09/02/18 11:36: POC Glucose 98 09/02/18 16:51: POC Glucose 88 09/02/18 19:51: POC Glucose 103 09/03/18 06:19: POC Glucose 76 09/03/18 06:51: WBC 5.9, RBC 2.63 L, Hgb 8.4 L, Hct 27.5 L, MCV 104.7 H, MCH 32.0 H, MCHC 30.6 L, RDW 15.7, Plt Count 161, MPV 7.2 L, Neut % (Auto) 79.1, Lymph % (Auto) 15.1, [place] % (Auto) 5.0, Eos % (Auto) 0.3, Baso % (Auto) 0.5, Neut # (Auto) 4.6, Lymph # (Auto) 0.9, [place] # (Auto) 0.3, Eos # (Auto) 0.0, Baso # (Auto) 0.0 09/03/18 06:51: Sodium 142, Potassium 4.0, Chloride 109 H, Carbon Dioxide 29, Anion Gap 8.0, BUN 21 H, Creatinine 1.42 H, Estimated Creat Clear 43, Estimated GFR 47 L, Est GFR ( Amer) 57 L, Glucose 89, Calcium 11.4 H I & O for Last 24 hours: Intake & Output 08/31/18 09/01/18 09/02/18 09/03/18 11:59 11:59 11:59 11:59 Intake Total 120 / 120 1256 / 1256 3067 / 3067 Balance 120 / 120 1256 / 1256 3067 / 3067 Weight 182 lb 1 oz 185 lb 5 oz Microbiology Reports for the Last 24 Hours: Microbiology 08/31/18 22:40 Blood Blood Culture - Preliminary NO GROWTH AFTER 48 HOURS 08/31/18 22:40 Blood Blood Culture - Preliminary NO GROWTH AFTER 48 HOURS 09/01/18 00:15 Shoulder,Left - Wound Gram Stain - Final 09/01/18 00:15 Shoulder,Left - Wound Wound Culture - Preliminary Assessment and Plan (1) Altered mental status Current visit: Yes Status: Acute Qualifiers: Altered mental status type: unspecified Qualified Code(s): R41.82 - Altered mental status, unspecified Category: Medical Code(s): R41.82 - Altered mental status, unspecified (2) Dehydration Current visit: Yes Status: Acute Category: Medical Code(s): E86.0 - Dehydration (3) Anemia Current visit: Yes Status: Chronic Qualifiers: Anemia type: unspecified type Qualified Code(s): D64.9 - Anemia, unspecified Category: Medical Code(s): D64.9 - Anemia, unspecified (4) Cellulitis Current visit: Yes Status: Acute Qualifiers: Site of cellulitis: trunk Site of cellulitis of trunk: back Qualified Code(s): L03.312 - Cellulitis of back [any part except buttock] Category: Medical Code(s): L03.90 - Cellulitis, unspecified (5) Hypercalcemia Current visit: Yes Status: Acute Category: Medical Code(s): E83.52 - Hypercalcemia (6) Renal insufficiency Current visit: Yes Status: Chronic Category: Medical Code(s): N28.9 - Disorder of kidney and ureter, unspecified (7) Type 2 diabetes mellitus Current visit: Yes Status: Chronic Qualifiers: Diabetes mellitus residential insulin use: with terminal make up operator use Diabetes mellitus complication status: with unspecified complications Qualified Code(s): E11.8 - Type 2 diabetes mellitus with unspecified complications; Z79.4 - terminal make up operator (current) use of insulin Category: Medical Code(s): E11.9 - Type 2 diabetes mellitus without complications (8) Chronic atrial fibrillation Current visit: Yes Status: Chronic Category: Medical Code(s): I48.2 - Chronic atrial fibrillation (9) Debility Current visit: No Status: Chronic Category: Medical Code(s): R53.81 - Other malaise (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 Current visit: No Status: Chronic Category: Medical Code(s): M15.9 - Polyosteoarthritis, unspecified (11) Generalized weakness Current visit: No Status: Chronic Category: Medical Code(s): R53.1 - Weakness (12) Gout Current visit: No Status: Chronic Category: Medical Code(s): M10.9 - Gout, unspecified (13) History of CVA (cerebrovascular accident) Current visit: No Status: Chronic Category: Medical Code(s): Z86.73 - Per [place] history of transient ischemic attack (TIA), and cerebral infarction without residual deficits (14) Depression Current visit: No Status: Chronic Category: Medical Code(s): F32.9 - Major depressive disorder, single episode, unspecified (15) Hypothyroidism Current visit: No Status: Chronic Qualifiers: Hypothyroidism type: unspecified Qualified Code(s): E03.9 - Hypothyroidism, unspecified Category: Medical Code(s): E03.9 - Hypothyroidism, unspecified - Assessment and plan all Dx Assessment and Plan for all problems:: He is not as alert this AM. Opens eyes but does not answer questions. He just returned from radiology from his head CT. Calcium remains elevated. Additional labs still pending. Will give dose of steroids to help lower his calcium. CBC shows macrocytic anemia. Will start IM B12.
[2018-09-03 16:13] LABS: Parathyroid Hormone Intact 8 pg/mL (15-65)
[2018-09-04 07:10] LABS: Eosinophils % 0.1 % (0.1-12.0); Hematocrit 26.5 % (42.0-52.0); Hemoglobin 8.3 g/dL (14.1-18.0); Lymphocytes # 0.6 K/mm3 (0.7-4.5); Lymphocytes % 10.3 % (10-50); Mean Corpuscular HGB Conc 31.3 g/dL (31.8-35.4); Mean Corpuscular Hemoglobin 32.3 pg (27.0-31.2); Mean Corpuscular Volume 102.9 fl (80-94); Mean Platelet Volume 7.6 fl (7.4-10.4); Monocytes # 0.2 K/mm3 (0.1-1.0); Monocytes % 3.3 % (1.7-9.3); Neutrophils # 4.8 K/mm3 (1.8-7.8); Neutrophils % 86.3 % (37.0-80.0); Platelet Count 164 K/mm3 (142-424); Red Blood Count 2.57 M/mm3 (4.60-6.20); Red Cell Distribution Width 15.9 % (11.5-17.5); White Blood Count 5.5 K/mm3 (4.8-10.8)
[2018-09-04 07:18] LABS: Anion Gap 12.9 mEq/L (5-15); Calcium 11.1 mg/dL (8.5-10.1); Potassium 3.9 mmoL/L (3.5-5.1)
[2018-09-04 07:48] LABS: Lymphocytes % 9 % (10-50); Macrocytosis 1+; Monocytes % 3 % (2-9); Neutrophils % 88 % (42-76); Total Cells Counted 100
[2018-09-04 07:49] LABS: Ovalocytes 1+
--- NOTE | 2018-09-04 08:29 | Progress Note ---
Internal Medicine - PN: Subj Interval history: He has been a bit restless and fidgety and pulled out his IV during the night this morning however he is more alert. He answers questions appropriately but is oriented only to his name. He denies pain or shortness of breath. Exam Vital signs and Labs for Last 24 Hours: Temp Pulse Resp BP Pulse Ox 97.7 F 78 17 136/86 98 09/04/18 07:58 09/04/18 07:58 09/04/18 07:58 09/04/18 07:58 09/04/18 07:58 Laboratory Results - last 24 hr 09/01/18 10:10: Ionized Calcium 7.6 H, Total Protein (PEP) 5.6 L, Albumin (PEP) 2.3 L, Globulin (PEP) 3.3, Albumin/Globulin Ratio 0.7, Qbuvk-4-Nmjcrbryl 0.3, Cdlis-3-Zeoiilmav 0.6, Beta Globulins 0.7, Gamma Globulins 1.7, M-Meño 0.3 H, PEP Note Comment, PTH Intact 8 L, Reporting Documentation Faxed result 09/03/18 06:51: Ferritin 220 09/03/18 11:11: POC Glucose 110 09/03/18 16:14: POC Glucose 162 H 09/03/18 20:25: POC Glucose 145 H 09/04/18 06:04: POC Glucose 129 H 09/04/18 06:55: WBC 5.5, RBC 2.57 L, Hgb 8.3 L, Hct 26.5 L, MCV 102.9 H, MCH 32.3 H, MCHC 31.3 L, RDW 15.9, Plt Count 164, MPV 7.6, Neut % (Auto) 86.3 H, Lymph % (Auto) 10.3, [place] % (Auto) 3.3, Eos % (Auto) 0.1, Baso % (Auto) 0.0 L, Neut # (Auto) 4.8, Lymph # (Auto) 0.6 L, [place] # (Auto) 0.2, Eos # (Auto) 0.0, Baso # (Auto) 0.0, Total Counted 100, Neutrophils % (Manual) 88 H, Lymphocytes % (Manual) 9 L, Monocytes % (Manual) 3, Platelet Estimate Normal, Macrocytosis 1+, Ovalocytes 1+ 09/04/18 06:55: Sodium 144, Potassium 3.9, Chloride 109 H, Carbon Dioxide 26, Anion Gap 12.9, BUN 22 H, Creatinine 1.34 H, Estimated Creat Clear 46, Estimated GFR 50 L, Est GFR ( Amer) 61, Glucose 124 H, Calcium 11.1 H I & O for Last 24 hours: Intake & Output 09/01/18 09/02/18 09/03/18 09/04/18 11:59 11:59 11:59 11:59 Intake Total 120 / 120 1256 / 1256 3067 / 3067 2873 / 2873 Balance 120 / 120 1256 / 1256 3067 / 3067 2873 / 2873 Weight 182 lb 1 oz 185 lb 5 oz 189 lb 6 oz 186 lb 8 oz Microbiology Reports for the Last 24 Hours: Microbiology 09/01/18 00:15 Shoulder,Left - Wound Gram Stain - Final 09/01/18 00:15 Shoulder,Left - Wound Wound Culture - Preliminary NO GROWTH AFTER 48 HOURS Narrative: He arouses easily. Color slightly pale. No respiratory distress. He is calm. Lungs are clear to auscultation. Heart is regular. Abdomen is soft and nondistended with no apparent tenderness. Extremities no edema. He does seem a bit weaker on the right side. Assessment and Plan (1) Altered mental status Current visit: Yes Status: Acute Qualifiers: Altered mental status type: unspecified Qualified Code(s): R41.82 - Altered mental status, unspecified Category: Medical Code(s): R41.82 - Altered mental status, unspecified (2) Dehydration Current visit: Yes Status: Acute Category: Medical Code(s): E86.0 - Dehydration (3) Anemia Current visit: Yes Status: Chronic Qualifiers: Anemia type: unspecified type Qualified Code(s): D64.9 - Anemia, unspecified Category: Medical Code(s): D64.9 - Anemia, unspecified (4) Cellulitis Current visit: Yes Status: Acute Qualifiers: Site of cellulitis: trunk Site of cellulitis of trunk: back Qualified Code(s): L03.312 - Cellulitis of back [any part except buttock] Category: Medical Code(s): L03.90 - Cellulitis, unspecified (5) Hypercalcemia Current visit: Yes Status: Acute Category: Medical Code(s): E83.52 - Hypercalcemia (6) Renal insufficiency Current visit: Yes Status: Chronic Category: Medical Code(s): N28.9 - Disorder of kidney and ureter, unspecified (7) Type 2 diabetes mellitus Current visit: Yes Status: Chronic Qualifiers: Diabetes mellitus travel manager insulin use: with travel manager use Diabetes mellitus complication status: with unspecified complications Qualified Code(s): E11.8 - Type 2 diabetes mellitus with unspecified complications; Z79.4 - sales service coordinator (current) use of insulin Category: Medical Code(s): E11.9 - Type 2 diabetes mellitus without complications (8) Chronic atrial fibrillation Current visit: Yes Status: Chronic Category: Medical Code(s): I48.2 - Chronic atrial fibrillation (9) Debility Current visit: No Status: Chronic Category: Medical Code(s): R53.81 - Other malaise (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 Current visit: No Status: Chronic Category: Medical Code(s): M15.9 - Polyosteoarthritis, unspecified (11) Generalized weakness Current visit: No Status: Chronic Category: Medical Code(s): R53.1 - Weakness (12) Gout Current visit: No Status: Chronic Category: Medical Code(s): M10.9 - Gout, unspecified (13) History of CVA (cerebrovascular accident) Current visit: No Status: Chronic Category: Medical Code(s): Z86.73 - Personal history of transient ischemic attack (TIA), and cerebral infarction without residual deficits (14) Depression Current visit: No Status: Chronic Category: Medical Code(s): F32.9 - Major depressive disorder, single episode, unspecified (15) Hypothyroidism Current visit: No Status: Chronic Qualifiers: Hypothyroidism type: unspecified Qualified Code(s): E03.9 - Hypothyroidism, unspecified Category: Medical Code(s): E03.9 - Hypothyroidism, unspecified - Assessment and plan all Dx Assessment and Plan for all problems:: He is more alert today and answers questions. Speech still remains a bit dysarthric. His CT scan of the brain did not show any acute infarct although he was only able to receive a partial dose of the contrast due to his renal insufficiency. 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 His calcium is improved a bit more. SPEP was normal. PTH was depressed from his hypercalcemia. Still cannot exclude an underlying malignancy. I will start him on Lasix to help lower his calcium level.
[2018-09-04 14:03] LABS: Folate 12.7 ng/mL (>3.0)
[2018-09-05 07:11] LABS: Anion Gap 11.2 mEq/L (5-15); Calcium 10.6 mg/dL (8.5-10.1); Potassium 3.2 mmoL/L (3.5-5.1)
--- NOTE | 2018-09-05 08:28 | Progress Note ---
Internal Medicine - PN: Subj Interval history: He had a better night. He was less restless. He is awake and attempts to answer questions this morning. Thought process is slow. Speech remains somewhat garbled. No complaints of pain. Exam Vital signs and Labs for Last 24 Hours: Temp Pulse Resp BP Pulse Ox 97.3 F L 68 22 148/95 H 97 09/05/18 07:53 09/05/18 07:53 09/05/18 07:53 09/05/18 07:53 09/05/18 07:53 Laboratory Results - last 24 hr 09/03/18 06:51: Vitamin B12 736 09/03/18 06:51: Iron 51, TIBC 138 L, Iron Saturation 37, Unsaturated IBC 87 L, Folate 12.7 09/04/18 11:21: POC Glucose 139 H 09/04/18 16:20: POC Glucose 120 H 09/04/18 20:51: POC Glucose 127 H 09/05/18 06:07: POC Glucose 103 09/05/18 06:55: Sodium 146 H, Potassium 3.2 L, Chloride 110 H, Carbon Dioxide 28, Anion Gap 11.2, BUN 22 H, Creatinine 1.32 H, Estimated Creat Clear 47, Estimated GFR 51 L, Est GFR ( Amer) 62, Glucose 101, Calcium 10.6 H I & O for Last 24 hours: Intake & Output 09/02/18 09/03/18 09/04/18 09/05/18 11:59 11:59 11:59 11:59 Intake Total 1256 / 1256 3067 / 3067 2873 / 2873 2424 / 2424 Output Total 0 / 0 Balance 1256 / 1256 3067 / 3067 2873 / 2873 2424 / 2424 Weight 185 lb 5 oz 189 lb 6 oz 186 lb 8 oz 190 lb 5 oz Narrative: No respiratory distress. Lungs are clear anteriorly. Heart is regular with no murmurs. Abdomen soft and nondistended with no tenderness. Extremities show no edema. Assessment and Plan (1) Altered mental status Current visit: Yes Status: Acute Qualifiers: Altered mental status type: unspecified Qualified Code(s): R41.82 - Altered mental status, unspecified Category: Medical Code(s): R41.82 - Altered mental status, unspecified (2) Dehydration Current visit: Yes Status: Acute Category: Medical Code(s): E86.0 - Dehydration (3) Cellulitis Current visit: Yes Status: Acute Qualifiers: Site of cellulitis: trunk Site of cellulitis of trunk: back Qualified Code(s): L03.312 - Cellulitis of back [any part except buttock] Category: Medical Code(s): L03.90 - Cellulitis, unspecified (4) Hypercalcemia Current visit: Yes Status: Acute Category: Medical Code(s): E83.52 - Hypercalcemia (5) Renal insufficiency Current visit: Yes Status: Chronic Category: Medical Code(s): N28.9 - Disorder of kidney and ureter, unspecified (6) Type 2 diabetes mellitus Current visit: Yes Status: Chronic Qualifiers: Diabetes mellitus group home insulin use: with terminal manager use Diabetes mellitus complication status: with unspecified complications Qualified Code(s): E11.8 - Type 2 diabetes mellitus with unspecified complications; Z79.4 - [facility] (current) use of insulin Category: Medical Code(s): E11.9 - Type 2 diabetes mellitus without complications (7) Chronic atrial fibrillation Current visit: Yes Status: Chronic Category: Medical Code(s): I48.2 - Chronic atrial fibrillation (8) Debility Current visit: No Status: Chronic Category: Medical Code(s): R53.81 - Other malaise (9) Generalized osteoarthritis Current visit: No Status: Chronic Category: Medical Code(s): M15.9 - Polyosteoarthritis, unspecified (10) Generalized weakness Current visit: No Status: Chronic Category: Medical Code(s): R53.1 - Weakness (11) Gout Current visit: No Status: Chronic Category: Medical Code(s): M10.9 - Gout, unspecified (12) History of CVA (cerebrovascular accident) Current visit: No Status: Chronic Category: Medical Code(s): Z86.73 - Personal history of transient ischemic attack (TIA), and cerebral infarction without residual deficits (13) Depression Current visit: No Status: Chronic Category: Medical Code(s): F32.9 - Major depressive disorder, single episode, unspecified (14) Hypothyroidism Current visit: No Status: Chronic Qualifiers: Hypothyroidism type: unspecified Qualified Code(s): E03.9 - Hypothyroidism, unspecified Category: Medical Code(s): E03.9 - Hypothyroidism, unspecified (15) Macrocytic anemia Current visit: Yes Status: Acute Category: Medical Code(s): D53.9 - Nutritional anemia, unspecified (16) Acute CVA (cerebrovascular accident) Current visit: Yes Status: Acute Category: Medical Code(s): I63.9 - Cerebral infarction, unspecified (17) Hypokalemia Current visit: Yes Status: Acute Category: Medical Code(s): E87.6 - Hypokalemia - Assessment and plan all Dx Assessment and Plan for all problems:: Clinically, it is most likely he has had another acute stroke that is not evident on CT imaging. MRI might be more definitive but would not change course of treatment at this time. His calcium level has improved. Potassium is low this morning and will replace with a supplement. Decrease IV fluids and wean O2. Possible discharge back to [place] tomorrow.
[2018-09-06 07:23] LABS: Anion Gap 13.5 mEq/L (5-15); Potassium 3.5 mmoL/L (3.5-5.1)
--- NOTE | 2018-09-06 08:07 | Progress Note ---
<Estrella Hendricks - Last Filed: 09/06/18 08:04> Internal Medicine - PN: Subj *Date: 09/06/18 *Time: 07:45 Interval history: Pt is somewhat restless while resting in bed with eyes closed. He arouses to voice and denies any complaints. He asks when Dr. Garcia will be around to see him. His speech remains garbled. Exam Vital signs and Labs for Last 24 Hours: Temp Pulse Resp BP Pulse Ox 97.7 F 76 20 142/85 H 96 09/06/18 07:49 09/06/18 07:49 09/06/18 07:49 09/06/18 07:49 09/06/18 07:50 Laboratory Results - last 24 hr 09/05/18 11:00: POC Glucose 110 09/05/18 17:07: POC Glucose 103 09/05/18 21:23: POC Glucose 112 H 09/06/18 06:23: POC Glucose 102 09/06/18 06:56: Sodium 145, Potassium 3.5, Chloride 111 H, Carbon Dioxide 24, Anion Gap 13.5, BUN 20 H, Creatinine 1.22, Estimated Creat Clear 49, Estimated GFR 56 L, Est GFR ( Amer) 68, Glucose 102, Calcium 10.0 I & O for Last 24 hours: Intake & Output 09/03/18 09/04/18 09/05/18 09/06/18 11:59 11:59 11:59 11:59 Intake Total 3067 / 3067 2873 / 2873 2424 / 2424 1195 / 1195 Output Total 0 / 0 0 / 0 Balance 3067 / 3067 2873 / 2873 2424 / 2424 1195 / 1195 Weight 189 lb 6 oz 186 lb 8 oz 190 lb 5 oz 184 lb 8 oz Microbiology Reports for the Last 24 Hours: Microbiology 08/31/18 22:40 Blood Blood Culture - Final NO GROWTH AFTER 5 DAYS 08/31/18 22:40 Blood Blood Culture - Final NO GROWTH AFTER 5 DAYS - Constitutional no acute distress Comments: restless - *Routine Respiratory Exam Comments: good air movement with few expiratory wheezes throughout - *Routine Cardiovascular Exam Comments: irregular - *Routine Abdominal Exam Present: soft, normoactive bowel sounds. Absent: tenderness, distended, rebound, guarding, organomegaly, mass - *Routine Extremities Exam Present: pulses intact. Absent: edema, calf tenderness - *Routine Neurological Exam alert, oriented to person and place, speech somewhat garbled Assessment and Plan (1) Altered mental status Current visit: Yes Status: Acute Qualifiers: Altered mental status type: unspecified Qualified Code(s): R41.82 - Altered mental status, unspecified Category: Medical Code(s): R41.82 - Altered mental status, unspecified (2) Dehydration Current visit: Yes Status: Acute Category: Medical Code(s): E86.0 - Dehydration (3) Cellulitis Current visit: Yes Status: Acute Qualifiers: Site of cellulitis: trunk Site of cellulitis of trunk: back Qualified Code(s): L03.312 - Cellulitis of back [any part except buttock] Category: Medical Code(s): L03.90 - Cellulitis, unspecified (4) Hypercalcemia Current visit: Yes Status: Acute Category: Medical Code(s): E83.52 - Hypercalcemia (5) Renal insufficiency Current visit: Yes Status: Chronic Category: Medical Code(s): N28.9 - Disorder of kidney and ureter, unspecified (6) Type 2 diabetes mellitus Current visit: Yes Status: Chronic Qualifiers: Diabetes mellitus regional intermodal truck driver insulin use: with regional intermodal truck driver use Diabetes mellitus complication status: with unspecified complications Qualified Code(s): E11.8 - Type 2 diabetes mellitus with unspecified complications; Z79.4 - extermination supervisor (current) use of insulin Category: Medical Code(s): E11.9 - Type 2 diabetes mellitus without complications (7) Chronic atrial fibrillation Current visit: Yes Status: Chronic Category: Medical Code(s): I48.2 - Chronic atrial fibrillation (8) Debility Current visit: No Status: Chronic Category: Medical Code(s): R53.81 - Other malaise (9) Generalized osteoarthritis Current visit: No Status: Chronic Category: Medical Code(s): M15.9 - Polyosteoarthritis, unspecified (10) Generalized weakness Current visit: No Status: Chronic Category: Medical Code(s): R53.1 - Weakness (11) Gout Current visit: No Status: Chronic Category: Medical Code(s): M10.9 - Gout, unspecified (12) History of CVA (cerebrovascular accident) Current visit: No Status: Chronic Category: Medical Code(s): Z86.73 - Personal history of transient ischemic attack (TIA), and cerebral infarction without residual deficits (13) Depression Current visit: No Status: Chronic Category: Medical Code(s): F32.9 - Major depressive disorder, single episode, unspecified (14) Hypothyroidism Current visit: No Status: Chronic Qualifiers: Hypothyroidism type: unspecified Qualified Code(s): E03.9 - Hypothyroidism, unspecified Category: Medical Code(s): E03.9 - Hypothyroidism, unspecified (15) Macrocytic anemia Current visit: Yes Status: Acute Category: Medical Code(s): D53.9 - Nutritional anemia, unspecified (16) Acute CVA (cerebrovascular accident) Current visit: Yes Status: Acute Category: Medical Code(s): I63.9 - Cerebral infarction, unspecified (17) Hypokalemia Current visit: Yes Status: Acute Category: Medical Code(s): E87.6 - Hypokalemia - Assessment and plan all Dx Assessment and Plan for all problems:: Plan for discharge back to [place] today. <Thomas Garcia - Last Filed: 09/06/18 08:34> Exam Vital signs and Labs for Last 24 Hours: Temp Pulse Resp BP Pulse Ox 97.7 F 76 20 142/85 H 96 09/06/18 07:49 09/06/18 07:49 09/06/18 07:49 09/06/18 07:49 09/06/18 07:50 Laboratory Results - last 24 hr 09/05/18 11:00: POC Glucose 110 09/05/18 17:07: POC Glucose 103 09/05/18 21:23: POC Glucose 112 H 09/06/18 06:23: POC Glucose 102 09/06/18 06:56: Sodium 145, Potassium 3.5, Chloride 111 H, Carbon Dioxide 24, Anion Gap 13.5, BUN 20 H, Creatinine 1.22, Estimated Creat Clear 49, Estimated GFR 56 L, Est GFR ( Amer) 68, Glucose 102, Calcium 10.0 I & O for Last 24 hours: Intake & Output 09/03/18 09/04/18 09/05/18 09/06/18 11:59 11:59 11:59 11:59 Intake Total 3067 / 3067 2873 / 2873 2424 / 2424 1195 / 1195 Output Total 0 / 0 0 / 0 Balance 3067 / 3067 2873 / 2873 2424 / 2424 1195 / 1195 Weight 189 lb 6 oz 186 lb 8 oz 190 lb 5 oz 184 lb 8 oz Microbiology Reports for the Last 24 Hours: Microbiology 08/31/18 22:40 Blood Blood Culture - Final NO GROWTH AFTER 5 DAYS 08/31/18 22:40 Blood Blood Culture - Final NO GROWTH AFTER 5 DAYS Assessment and Plan (1) Altered mental status Current visit: Yes Status: Acute Qualifiers: Altered mental status type: unspecified Qualified Code(s): R41.82 - Altered mental status, unspecified Category: Medical Code(s): R41.82 - Altered mental status, unspecified (2) Dehydration Current visit: Yes Status: Acute Category: Medical Code(s): E86.0 - Dehydration (3) Cellulitis Current visit: Yes Status: Acute Qualifiers: Site of cellulitis: trunk Site of cellulitis of trunk: back Qualified Code(s): L03.312 - Cellulitis of back [any part except buttock] Category: Medical Code(s): L03.90 - Cellulitis, unspecified (4) Hypercalcemia Current visit: Yes Status: Acute Category: Medical Code(s): E83.52 - Hypercalcemia (5) Renal insufficiency Current visit: Yes Status: Chronic Category: Medical Code(s): N28.9 - Disorder of kidney and ureter, unspecified (6) Type 2 diabetes mellitus Current visit: Yes Status: Chronic Qualifiers: Diabetes mellitus regional intermodal truck driver insulin use: with alf use Diabetes mellitus complication status: with unspecified complications Qualified Code(s): E11.8 - Type 2 diabetes mellitus with unspecified complications; Z79.4 - extermination supervisor (current) use of insulin Category: Medical Code(s): E11.9 - Type 2 diabetes mellitus without complications (7) Chronic atrial fibrillation Current visit: Yes Status: Chronic Category: Medical Code(s): I48.2 - Ch ronic atrial fibrillation (8) Debility Current visit: No Status: Chronic Category: Medical Code(s): R53.81 - Other malaise (9) Generalized osteoarthritis Current visit: No Status: Chronic Category: Medical Code(s): M15.9 - Polyosteoarthritis, unspecified (10) Generalized weakness Current visit: No Status: Chronic Category: Medical Code(s): R53.1 - Weakness (11) Gout Current visit: No Status: Chronic Category: Medical Code(s): M10.9 - Gout, unspecified (12) History of CVA (cerebrovascular accident) Current visit: No Status: Chronic Category: Medical Code(s): Z86.73 - Personal history of transient ischemic attack (TIA), and cerebral infarction without residual deficits (13) Depression Current visit: No Status: Chronic Category: Medical Code(s): F32.9 - Major depressive disorder, single episode, unspecified (14) Hypothyroidism Current visit: No Status: Chronic Qualifiers: Hypothyroidism type: unspecified Qualified Code(s): E03.9 - Hypothyroidism, unspecified Category: Medical Code(s): E03.9 - Hypothyroidism, unspecified (15) Macrocytic anemia Current visit: Yes Status: Acute Category: Medical Code(s): D53.9 - Nutritional anemia, unspecified (16) Acute CVA (cerebrovascular accident) Current visit: Yes Status: Acute Category: Medical Code(s): I63.9 - Cerebral infarction, unspecified (17) Hypokalemia Current visit: Yes Status: Acute Category: Medical Code(s): E87.6 - Hypokalemia - Assessment and plan all Dx Assessment and Plan for all problems:: Stable to transfer back to [place] 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 Rehab potential is poor.
--- NOTE | 2018-09-06 08:40 | Discharge Summary ---
General - General Admission date:: 09/01/18 Discharge date: 09/06/18 HPI HPI: Mr. Cheema was an 87yo male with a history of atrial fibrillation, type 2 diabetes mellitus, ASCVD, gout, and recent hospitalization at [facility] for resistant urinary tract infection. Patient had just completed a course of Levaquin on 08/29/2018 after return from [facility] to [place] [facility] for ongoing care and rehabilitation. Patient had had a gradual decline since his return the prior week. He had been more confused and weak. He had tried to participate in and actually did go to physical therapy. He was seen by CARL Black in the facility at which time he appeared somnolent and was hypotensive after his PT. Blood pressure did improve to 110/72 from systolic blood pressure in the 90s after resting. Several of his medications were discontinued. He was felt to be slightly dehydrated and was started on IV fluids of normal saline at 100/h. He had a diminished urinary output. He denied pain and shortness of breath. According to his niece he had a very poor p.o. intake for the prior few days. Labs completed at [facility] on 08/30/2018 revealed a normal BMP and a CBC with a white blood cell count of 7700, hemo globin of 9.5 and hematocrit of 29.1; differential showed 82.7% neutrophils and 9.8 lymphocytes. On the evening of admission, he had a decrease in oxygen saturation with diminished mentation at [facility] and was brought to [facility] ER for evaluation. Head CT was not done due to decreased renal function. Chest x-ray was negative for acute changes. He showed a slight increase in his BUN and creatinine and white count was high normal. Calcium was also noted to be elevated. O2 sat was 97% on oxygen. Also noted was a new abscess in the left scapular area with erythema and some drainage. He was admitted for further evaluation and treatment with IV fluids, blood cultures, and culture of the wound of the left scapular area. Hospital Course Hospital Course: On the morning following admission, he continued with some garbled speech and was noted to be a much poorer historian than his baseline. The etiology of his AMS was not clear and was felt to possibly be multifactorial, with concern for infection, acute stroke, hypercalcemia, and malignancy. By the morning of 09/02/18, he was feeling better, although he complained of some slight shortness of breath. His calcium level had improved with hydration along with his renal function and a CT of the head with contrast was ordered. Swallowing evaluation was also ordered as nursing felt that he was coughing while eating. After returning to the floor from his head CT the next morning, he was felt to be less alert and slightly confused and reported that his head hurt. Pt had swallowing evaluation and speech therapy recommended mechanical soft with ground meats and nectar thick liquids. He was given a dose of steroids to help lower his calcium level which remained elevated. He also received an IM dose of Vitamin B12 as his CBC showed a macrocytic anemia. On the morning of 09/04/18, he was more alert, however, he had been restless and fidgety overnight and was oriented only to his name. CT scan of the brain did not show any acute infarct, although he was only able to receive a partial dose of the contrast due to his renal insufficiency. He was noted to exhibit some mild right-sided weakness and clinically appeared to have had a recurrent stroke. He was started on Lasix to further lower his calcium level which had improved only slightly. His SPEP was normal. His PTH was depressed due to his hypercalcemia. It was felt that an underlying malignancy could still not be excluded. By the following morning, he was awake and less restless. He attempted to answer questions although his thought process remained slow. His calcium level had improved and potassium supplement was started for hypokalemia. MRI was deferred as it was not felt that it would change the course of treatment. It was planned to decrease IV fluids and wean O2 in preparation for discharge back to [facility] [place]. By the morning of 09/06/18, the patient was stable for return to [place]. Objective Vital signs: Temp Pulse Resp BP Pulse Ox 97.7 F 76 20 142/85 H 96 09/06/18 07:49 09/06/18 07:49 09/06/18 07:49 09/06/18 07:49 09/06/18 07:50 Results Labs on day of discharge: Labs from last 24 hours 09/06/18 09/06/18 09/05/18 06:56 06:23 21:23 Sodium 145 Potassium 3.5 Chloride 111 H Carbon Dioxide 24 Anion Gap 13.5 BUN 20 H Creatinine 1.22 Estimated Creat Clear 49 Estimated GFR 56 L Est GFR ( Amer) 68 Glucose 102 POC Glucose 102 112 H Calcium 10.0 09/05/18 09/05/18 17:07 11:00 Sodium Potassium Chloride Carbon Dioxide Anion Gap BUN Creatinine Estimated Creat Clear Estimated GFR Est GFR ( Amer) Glucose POC Glucose 103 110 Calcium Preliminary micro results at discharge 09/01/18 00:15 Wound Culture - Preliminary Shoulder,Left - Wound NO GROWTH AFTER 48 HOURS DS: Diagnosis - Discharge Diagnosis (1) Altered mental status Status: Acute (2) Dehydration Status: Acute (3) Cellulitis Status: Acute (4) Hypercalcemia Status: Acute (5) Renal insufficiency Status: Chronic (6) Type 2 diabetes mellitus Status: Chronic (7) Chronic atrial fibrillation Status: Chronic (8) Debility Status: Chronic (9) Generalized osteoarthritis Status: Chronic (10) Generalized weakness Status: Chronic (11) Gout Status: Chronic (12) History of CVA (cerebrovascular accident) Status: Chronic (13) Depression Status: Chronic (14) Hypothyroidism Status: Chronic (15) Macrocytic anemia Status: Acute (16) Acute CVA (cerebrovascular accident) Status: Acute (17) Hypokalemia Status: Acute Discharge Plan - Patient Discharge Instructions ACTIVITY: Continue current activity DIET: continue same diet Additional Instructions: PT/OT/Speech therapy Patient Instructions: DI for Stroke-Ischemic, DI for Altered Mental Status - Follow up Plan Follow up with: Thomas Garcia MD [Staff Physician] - 1 week (at [place]) Disposition: Xfer [facility] Home Medications: Home Medications Medication Instructions Recorded Confirmed Type Cholecalciferol (Vitamin D3) 2,000 unit PO DAILY 10/26/17 08/31/18 History [Vitamin D3] Loperamide HCl [Imodium 2 mg 2 mg PO Q4HP PRN 10/26/17 08/31/18 History capsule] Apixaban [Eliquis] 2.5 mg PO BID 11/12/17 08/31/18 History Acetaminophen 500 mg PO Q6HP PRN 11/13/17 08/31/18 History Ibuprofen [Ibuprofen Ib] 400 mg PO Q8HP PRN 11/13/17 08/31/18 History Multivitamin [One Daily] 1 tab PO DAILY 11/13/17 08/31/18 History Ascorbic Acid 500 mg PO BID 08/19/18 08/31/18 History Chlorpheniramine/Dextromethorp 5 ml PO Q4HP PRN 08/19/18 08/31/18 History [Robitussin Long-Acting Liq] Mag Carb/Aluminum Hydrox/Algin 15 ml PO Q4HP PRN 08/19/18 08/31/18 History [Gaviscon Liquid] Ondansetron HCl [Ondansetron 4mg 4 mg PO Q6HP PRN 08/19/18 08/31/18 History Tablet] Metformin HCl 500 mg PO BID #0 08/24/18 08/31/18 Rx Tramadol HCl [Ultram 50mg 50 - 100 mg PO Q6HP PRN #90 tab 08/24/18 08/31/18 Rx tablet] Aspirin 81 mg PO DAILY 08/31/18 08/31/18 History Bisoprolol Fumarate [Zebeta 5mg 5 mg PO BID 08/31/18 08/31/18 History tablet] Levothyroxine Sodium [Synthroid 150 mcg PO DAILYDM 08/31/18 08/31/18 History 150mcg (0.15mg) tablet] Potassium Chloride [Klor-Con 10mEq 10 meq PO BID 08/31/18 08/31/18 History tab] Verapamil HCl [Verapamil Sr] 120 mg PO BID 08/31/18 08/31/18 History Sertraline HCl [Zoloft 50mg tablet] 50 mg PO HS 09/01/18 09/01/18 History Furosemide [Lasix 20mg tablet] 20 mg PO DAILY tablet 09/06/18 Rx Haloperidol [Haldol 1mg tablet] 1 mg PO Q6HP PRN #30 tab 09/06/18 Rx Insulin Lispro [HumaLOG 100 0 unit SQ ACHS ml 09/06/18 Rx units/mL 3mL vial (SSI)] Levothyroxine Sodium [Synthroid 150 mcg PO DAILY tablet 09/06/18 Rx 150mcg (0.15mg) tablet] Sertraline HCl [Zoloft 50mg tablet] 50 mg PO HS tablet 09/06/18 Rx Prescriptions/Medication Reconciliation: New Levothyroxine Sodium [Synthroid 150mcg (0.15mg) tablet] 150 mcg PO DAILY tablet Sertraline HCl [Zoloft 50mg tablet] 50 mg PO HS tablet Haloperidol [Haldol 1mg tablet] 1 mg PO Q6HP PRN #30 tab PRN Reason: Agitation Furosemide [Lasix 20mg tablet] 20 mg PO DAILY tablet Insulin Lispro [HumaLOG 100 units/mL 3mL vial (SSI)] 0 unit SQ ACHS ml Continue Loperamide HCl [Imodium 2 mg capsule] 2 mg PO Q4HP PRN PRN Reason: Diarrhea Cholecalciferol (Vitamin D3) [Vitamin D3] 2,000 unit PO DAILY Apixaban [Eliquis] 2.5 mg PO BID Ibuprofen [Ibuprofen Ib] 400 mg PO Q8HP PRN PRN Reason: PAIN Acetaminophen 500 mg PO Q6HP PRN PRN Reason: PAIN Multivitamin [One Daily] 1 tab PO DAILY Mag Carb/Aluminum Hydrox/Algin [Gaviscon Liquid] 15 ml PO Q4HP PRN PRN Reason: antacid Ascorbic Acid 500 mg PO BID Ondansetron HCl [Ondansetron 4mg Tablet] 4 mg PO Q6HP PRN PRN Reason: Nausea Metformin HCl 500 mg PO BID #0 Potassium Chloride [Klor-Con 10mEq tab] 10 meq PO BID Levothyroxine Sodium [Synthroid 150mcg (0.15mg) tablet] 150 mcg PO DAILYDM Bisoprolol Fumarate [Zebeta 5mg tablet] 5 mg PO BID Aspirin 81 mg PO DAILY Chlorpheniramine/Dextromethorp [Robitussin Long-Acting Liq] 5 ml PO Q4HP PRN PRN Reason: Cough Tramadol HCl [Ultram 50mg tablet] 50 - 100 mg PO Q6HP PRN #90 tab PRN Reason: PAIN Verapamil HCl [Verapamil Sr] 120 mg PO BID Sertraline HCl [Zoloft 50mg tablet] 50 mg PO HS
== END 2018-09-06 10:26 | DRG 65 ==
LOC: ER 22:19 → 2ND 22:19 → OBSVTOIN 09-01 01:14 → 2ND 09-01 01:15
PROVIDERS: ADMIT Family Medicine; ATTEND Family Medicine
CPT/HCPCS: 36415; 70470; 71010; 71045; 80048; 80053; 81001; 82330; 82607; 82728; 82746; 82962; 83540; 83550; 83605; 83735; 83970; 84100; 84155; 84165; 84484; 85007; 85025; 87040; 87070; 87205; 92610; 93005; 94761; 99285; Q9967